=== PATIENT | female | born 1960 | race Caucasian/White ===

== ENCOUNTER 2020-09-09 11:57 | Outpatient (REF) | payer MEDICARE, MEDICAID, SELFPAY ==
--- NOTE | 2020-09-09 12:03 | XR_ITS ---
EXAMINATION: XR KNEE, LEFT CLINICAL INFORMATION: Pain left knee COMPARISON: None TECHNIQUE: Four views of the left knee. FINDINGS: There is no acute fracture, dislocation subluxation. The tricompartment joint space is maintained. There is mild spurring along the inferior patella and a small anterior superior patellar enthesophyte. No abnormal joint effusion seen XR/XR knee LT 4V IMPRESSION: Mild degenerative spurring along the patella. No visible acute fracture or dislocation seen.
== END 2020-09-09 11:58 | disposition home or self-care (01) ==
LOC: HO.HMGCX 11:57
PROVIDERS: PCP Internal Medicine; Visit Provider Internal Medicine
DX: M25.562 Pain in left knee (principal)
CPT/HCPCS: 73564

== ENCOUNTER → 2020-11-07 14:10 | Outpatient (BNVA) | payer MEDICARE, MEDICAID, SELFPAY | PROVIDERS: Visit Provider Urology ==

== ENCOUNTER → 2020-11-12 12:17 | Outpatient (BNVA) | payer MEDICARE, MEDICAID, SELFPAY | PROVIDERS: PCP Internal Medicine; Visit Provider Internal Medicine Cardiovascular Disease | DX: R94.31 Abnormal electrocardiogram [ECG] [EKG] (principal); R07.89 Other chest pain; I10 Essential (primary) hypertension; R06.00 Dyspnea, unspecified | CPT/HCPCS: 93005; 99202 ==

== ENCOUNTER 2020-11-17 | Outpatient (REF) | payer MEDICARE, MEDICAID, SELFPAY | END 2020-11-17 00:01 | disposition home or self-care (01) | LOC: HO.LAB | PROVIDERS: Visit Provider Internal Medicine Cardiovascular Disease | DX: R07.89 Other chest pain (principal); Z20.822 Contact with and (suspected) exposure to COVID-19 | CPT/HCPCS: 36415; U0003; U0005 ==

== ENCOUNTER → 2021-01-12 08:51 | Outpatient (REF) | payer MEDICARE, MEDICAID, SELFPAY ==
--- NOTE | 2021-01-12 08:53 | CA_ITS ---
Acquisition Time: 2021-01-12 09:00:10 Total Exercise Time: 00:06:51 Test Indications: Abnormal ECG Medications: Protocol: EZRA Max HR: 150 BPM 93% of Pred: 160 BPM Max BP: 142/080 mmHG Max Work Load: 8.3 METS Exercise stress test using Ezra protocol total of 6 min 51 sec. METS 8.3, TAPHR up to 93 %. Pt denies any anginal sx. EKG without any arrhythmias, no ischemic changes seen during exercise or in recovery. Normotensive response to exercise. Test reviewed with Dr. Jerry. Referred By: Calvin Ruth Overread By: Carlene Sahni NP
== END ==
LOC: HO.CARD 08:51
PROVIDERS: Visit Provider Internal Medicine Cardiovascular Disease
DX: R07.89 Other chest pain (principal)
CPT/HCPCS: 93016; 93017; 93018

== ENCOUNTER 2021-01-15 12:51 | Outpatient (REF) | payer MEDICARE, MEDICAID, SELFPAY ==
--- NOTE | ~2021-01-15 | CT_ITS ---
EXAMINATION: CT CHEST WITHOUT CONTRAST CLINICAL INFORMATION: Chest pain. COMPARISON: Multiple prior examinations, most recent CT of the chest October 2018 TECHNIQUE: Multidetector volumetric CT imaging of the chest was done. Axial MIP volume rendering provided. Sagittal and coronal reformatted images were obtained. This CT examination was performed using dose optimization techniques as appropriate, variously including the following: *Automated exposure control *Adjustment of mA and/or kV according to patient size (this includes techniques or standardized protocols for targeted exams where dose is matched to indication/reason for exam; i.e. extremities or head) *Use of iterative reconstruction technique DLP: 169 mGy-cm FINDINGS: LUNGS: Nodules: There are stable bilateral small sub-5 mm nodular densities throughout both lungs, unchanged dating back to 2014 compatible with benign nodules. There are patchy areas of ground-glass opacity in both lungs not seen previously. For example, see image 364/[id number] series 5 in both the right lower lobe and left lower lobe. Small bulla present within the right lower lobe, unchanged. CARDIOVASCULAR: There is mild arterial calcification of the aorta, unchanged. Pulmonary vessels normal. Heart size within normal limits. No pericardial effusion. Lymph nodes normal. Thoracic inlet normal. Esophagus normal. PLEURA: There is no pleural effusion. AXILLA: No lymphadenopathy. UPPER ABDOMEN: Status post cholecystectomy. OSSEOUS STRUCTURES: Mild multilevel spondylosis of the dorsal spine. CT/CT chest wo con IMPRESSION: Stable bilateral small nodules, unchanged dating back to 2014 compatible with benign nodules. No further followup is required. New bilateral patchy ground-glass opacities in both lungs of uncertain etiology. The differential diagnosis is broad and includes inflammatory and infectious processes. Neoplasm is unlikely.
== END 2021-01-15 12:52 | disposition home or self-care (01) ==
LOC: HO.CT 12:51
PROVIDERS: Visit Provider Internal Medicine
DX: R91.8 Other nonspecific abnormal finding of lung field (principal)
CPT/HCPCS: 71250

== ENCOUNTER 2021-01-27 14:58 | Outpatient (REF) | payer MEDICARE, MEDICAID, SELFPAY ==
--- NOTE | ~2021-01-27 | XR_ITS ---
EXAMINATION: XR CHEST CLINICAL INFORMATION: Patchy areas of groundglass opacity in both lungs COMPARISON: CT chest 01/15/2021 TECHNIQUE: 2 views of the chest were obtained. FINDINGS: The lungs are well-expanded and clear of acute process. Heart size and pulmonary vascularity is normal. There is moderate spondylosis dorsal spine. No lytic process. XR/XR chest 2V IMPRESSION: No acute cardiopulmonary process seen on the chest x-ray. Groundglass density seen in the lungs on previous CT chest 01/15/2021 is not visualized on the chest x-ray.
== END 2021-01-27 14:59 | disposition home or self-care (01) ==
LOC: HO.XRAY 14:58
PROVIDERS: PCP Internal Medicine; Visit Provider Internal Medicine
DX: R07.89 Other chest pain (principal); R91.8 Other nonspecific abnormal finding of lung field
CPT/HCPCS: 71046; 99212

== ENCOUNTER → 2021-02-04 14:10 | Outpatient (BNVA) | payer MEDICARE, MEDICAID, SELFPAY | PROVIDERS: PCP Internal Medicine; Visit Provider Internal Medicine Cardiovascular Disease | DX: R07.89 Other chest pain (principal); R06.00 Dyspnea, unspecified | CPT/HCPCS: 99212 ==

== ENCOUNTER 2021-03-03 12:50 | Outpatient (REF) | payer MEDICARE, MEDICAID, SELFPAY | END 2021-03-03 12:51 | disposition home or self-care (01) | LOC: HO.LAB 12:50 | PROVIDERS: PCP Internal Medicine; Visit Provider Obstetrics & Gynecology | DX: Z13.89 Encounter for screening for other disorder (principal) | CPT/HCPCS: 87491; 87591 ==

== ENCOUNTER 2021-03-06 11:40 | Outpatient (REF) | payer MEDICARE, MEDICAID, SELFPAY ==
[2021-03-07 02:25] LABS: CT PCR NOT DETECTED (Not Detect.); NG PCR NOT DETECTED (Not Detect.)
== END 2021-03-06 11:41 | disposition home or self-care (01) ==
LOC: HO.LAB 11:40
PROVIDERS: Visit Provider Obstetrics & Gynecology
DX: Z11.3 Encounter for screening for infections with a predominantly sexual mode of transmission (principal); R10.2 Pelvic and perineal pain
CPT/HCPCS: 87491; 87591

== ENCOUNTER 2021-03-11 14:24 | Outpatient (REF) | payer MEDICARE, MEDICAID, SELFPAY ==
--- NOTE | ~2021-03-11 | US_ITS ---
EXAMINATION: US PELVIC AND TRANSVAGINAL CLINICAL INFORMATION: Pelvic and perineal pain. section x3. Tubal ligation. COMPARISON: CT abdomen/pelvis dated 04/23/2020 and pelvic ultrasound dated 03/04/2020. TECHNIQUE: Transabdominal and transvaginal imaging was performed. FINDINGS: The uterus is of normal size and echogenicity measuring 6.4 x 2.5 x 3.9 cm. Redemonstration of a probable anterior body fibroid measuring 0.5 cm (previously 0.8 cm). A regular homogeneous endometrium is identified measuring 0.3 cm. Redemonstration of an echogenic focus within the endometrium, unchanged when compared to the prior examination. The right ovary is not seen due to overlying bowel gas. The left ovary is sonographically unremarkable measuring 1.3 x 1 x 0.9 cm for a volume of 0.6 mL. There is no pelvic free fluid. US/US pelvic and transvaginal IMPRESSION: 1. Stable echogenic focus within the endometrium, unchanged. No endometrial thickening. 2. Probable anterior fibroid, slightly decreased in size when compared to the prior examination measuring up to 0.5 cm (previously 0.8 cm). No new myometrial lesion. 3. Sonographically unremarkable left ovary. Right ovary not seen.
== END 2021-03-11 14:25 | disposition home or self-care (01) ==
LOC: HO.US 14:24
PROVIDERS: Visit Provider Obstetrics & Gynecology
DX: R10.2 Pelvic and perineal pain (principal)
CPT/HCPCS: 76830; 76856

== ENCOUNTER → 2021-03-18 11:21 | Outpatient (BNVA) | payer MEDICARE, MEDICAID, SELFPAY | PROVIDERS: PCP Internal Medicine; Visit Provider Obstetrics & Gynecology | DX: R10.2 Pelvic and perineal pain (principal); R93.5 Abnormal findings on diagnostic imaging of other abdominal regions, including retroperitoneum; D21.9 Benign neoplasm of connective and other soft tissue, unspecified | CPT/HCPCS: Q3014 ==

== ENCOUNTER 2021-04-03 14:40 | Outpatient (REF) | payer MEDICARE, MEDICAID, SELFPAY ==
[2021-04-03 16:13] LABS: Hematocrit 39.5 % (37-47); Hemoglobin 12.9 g/dl (12.0-16.0); Mean Corpuscular HGB Conc 32.7 g/dl (31.0-35.0); Mean Corpuscular Hemoglobin 29.3 pg (27.0-33.0); Mean Corpuscular Volume 89.6 fL (80-98); Mean Platelet Volume 10.8 fL (9.4-12.3); Platelet Count 247 X10*3/uL (160-400); Red Blood Count 4.41 X10*6/uL (4.20-5.50); Red Cell Distribution Width 12.1 % (11.0-16.0)
[2021-04-03 16:37] LABS: Alanine Aminotransferase 15 U/L (0-31); Albumin Level 4.6 g/dL (3.5-5.0); Alkaline Phosphatase 81 U/L (39-117); Anion Gap 13 (12-20); Aspartate Amino Transferase 25 U/L (5-31); Bilirubin Total 0.3 mg/dL (0.0-1.0); Blood Urea Nitrogen 22 mg/dL (9-16); Calcium 9.9 mg/dL (8.4-10.2); Carbon Dioxide 28 mmol/L (22-29); Chloride 105 mmol/L (96-108); Estimated Glomerular Filt Rate > 60; Glucose Random 93 mg/dL (60-115); Potassium 4.8 mmol/L (3.3-5.1); Sodium 141 mmol/L (135-145); Total Protein 7.6 g/dL (6.5-8.0)
== END 2021-04-03 14:41 | disposition home or self-care (01) ==
LOC: HO.LAB 14:40
PROVIDERS: PCP Internal Medicine; Referring Provider Internal Medicine; Visit Provider Nurse Practitioner Family
DX: Z01.818 Encounter for other preprocedural examination (principal); K21.9 Gastro-esophageal reflux disease without esophagitis
CPT/HCPCS: 36415; 80053; 85027; 99202

== ENCOUNTER 2021-05-19 09:39 | Day surgery (SDC) | payer MEDICARE, MEDICAID, SELFPAY ==
[2021-05-14 09:56] VITALS: BMI 32.1
[2021-05-14 11:37] VITALS: BMI 32.6
--- NOTE | 2021-05-18 10:22 | P.CONAN_ITS ---
Documented by User: Roxane Waltonney 05/18/21 10:24 HPI - Anesthesia Eval Consult details Narrative: 60yo F for Upper Endoscopy and Colonoscopy Negative cardiac w/u 01/2021 (referred for abnormal EKG, but was limb reversal and SOB r/t deconditioning per cardio) [facility] Active Problems Active Problems: All Active Problems (Updated 05/14/21 @ 09:55 by Sonya Caballero) Chest discomfort (Acute) Dyspnea (Acute) Lung nodules (Acute) Pharyngitis (Acute) Generalized body aches (Acute) Nausea (Acute) Sinusitis (Acute) Abdominal pain (Acute) Well woman exam (Acute) Female pelvic pain (Acute) Abnormal endometrial ultrasound (Acute) Myoma (Acute) Radiculitis of right cervical region (Acute) Sciatica, right side (Acute) GERD (gastroesophageal reflux disease) (Acute) Pulmonary nodules (Acute) Abnormal EKG (Acute) Knee pain, left (Acute) Osteoarthritis (Acute) Anxiety, generalized (Acute) Chronic GERD (Acute) HIV positive (Acute) Past Medical History Medical History Abnormal EKG Abnormal Pap smear of cervix Anxiety, generalized Chronic GERD Dysplasia of cervix, low grade (TOMA 1) GERD (gastroesophageal reflux disease) HIV positive Knee pain, left Osteoarthritis Pulmonary nodules Shoulder pain, right Family History Family History Father CVD (cardiovascular disease) Mother Arthritis Surgical History Surgical History History of bilateral tubal ligation History of section History of colonoscopy History of esophagogastroduodenoscopy (EGD) Social History Social History Housing: House Alcohol intake: never Patient Tobacco Use Status: Former Tobacco user Quit Date: 1984 Tobacco use type: Cigarette Are you DNR?: No Advance Directives: No Advance Directives Information Provided: No Advance Directives on File: No Current occupational status: employed and disabled Meds Allergies Allergy/AdvReac Type Severity Reaction Status Date / Time aspirin [ASPIRIN] Allergy Intermediate HIVES, Verified 05/19/21 09:52 stomach upset codeine [CODEINE] Allergy Intermediate NAUSEA & Verified 05/19/21 09:52 VOMITING, drowsy, upset stomach ondansetron [Zofran] Allergy Intermediate headache Verified 05/19/21 09:52 Iodinated Contrast Media Allergy Unknown Verified 05/19/21 09:52 [IV Contrast Dye] Home Medications Medication Instructions Recorded Confirmed Last Taken Type bictegravir 50 mg-emtricitabine 1 tab PO DAILY 09/09/20 05/14/21 05/19/21 07:55 History 200 mg-tenofovir alafenam 25 mg tablet (Biktarvy) pantoprazole 40 mg tablet,delayed 40 mg PO DAILY 09/09/20 05/14/21 05/19/21 07:55 History release diphenhydramine HCl 25 mg capsule 50 mg PO BEDTIME cap 09/30/20 05/14/21 Unknown History (Banophen) olopatadine 0.7 % eye drops (Pazeo) 1 drp OPHTHALMIC (EYE) DAILY PRN 09/30/20 05/14/21 Unknown History bisacodyl 5 mg tablet,delayed 2 tab PO DAILY 05/14/21 05/14/21 Unknown History release Exam Exam Date and Time: May 18, 2021 1022 Height,Weight and Vital Signs: Height 5 ft 1 in Weight 78.471 kg Pertinent Lab Results Pertinent Lab Results: Laboratory Tests 04/03/21 04/03/21 15:31 15:31 WBC 4.0 L Hgb 12.9 Hct 39.5 Plt Count 247 Sodium 141 Potassium 4.8 Chloride 105 Carbon Dioxide 28 BUN 22 H Creatinine 0.80 Narrative Narrative: EKG 11/2020 NSR, 68/min, Normal ECG Stress 01/2021 Protocol: VARINDER ? Max HR: 150 BPM? 93% of? Pred: 160 BPM Max BP: 142/080 mmHG Max Work Load: 8.3 METS ? Exercise stress test using Varinder protocol total of 6 min 51 sec.? METS 8.3, ?TAPHR up to 93 %.? Pt denies any anginal sx.? EKG without any arrhythmias, no ?ischemic changes seen during exercise or in recovery. Normotensive response to ?exercise.? Test reviewed with Dr. Jerry.? Assessment and Plan Assessment Anesthesia Assessment: Chart Reviewed Documented by User: Deysi Woodruff MD 05/19/21 10:37 [facility] Past Medical History Medical History Abnormal EKG Abnormal Pap smear of cervix Anxiety, generalized Chronic GERD Dysplasia of cervix, low grade (TOMA 1) GERD (gastroesophageal reflux disease) HIV positive Knee pain, left Osteoarthritis Pulmonary nodules Shoulder pain, right Family History Family History Father CVD (cardiovascular disease) Mother Arthritis Family history of problems with anesthesia: No Surgical History Surgical History History of bilateral tubal ligation History of section History of colonoscopy History of esophagogastroduodenoscopy (EGD) History of Problems with Anesthesia: No Social History Social History Housing: House Alcohol intake: never Patient Tobacco Use Status: Former Tobacco user Quit Date: 1984 Tobacco use type: Cigarette Are you DNR?: No Advance Directives: No Advance Directives Information Provided: No Advance Directives on File: No Current occupational status: employed and disabled Meds Allergies Allergy/AdvReac Type Severity Reaction Status Date / Time aspirin [ASPIRIN] Allergy Intermediate HIVES, Verified 05/19/21 09:52 stomach upset codeine [CODEINE] Allergy Intermediate NAUSEA & Verified 05/19/21 09:52 VOMITING, drowsy, upset stomach ondansetron [Zofran] Allergy Intermediate headache Verified 05/19/21 09:52 Iodinated Contrast Media Allergy Unknown Verified 05/19/21 09:52 [IV Contrast Dye] Home Medications Medication Instructions Recorded Confirmed Last Taken Type bictegravir 50 mg-emtricitabine 1 tab PO DAILY 09/09/20 05/14/21 05/19/21 07:55 History 200 mg-tenofovir alafenam 25 mg tablet (Biktarvy) pantoprazole 40 mg tablet,delayed 40 mg PO DAILY 09/09/20 05/14/21 05/19/21 07:55 History release diphenhydramine HCl 25 mg capsule 50 mg PO BEDTIME cap 09/30/20 05/14/21 Unknown History (Banophen) olopatadine 0.7 % eye drops (Pazeo) 1 drp OPHTHALMIC (EYE) DAILY PRN 09/30/20 05/14/21 Unknown History bisacodyl 5 mg tablet,delayed 2 tab PO DAILY 05/14/21 05/14/21 Unknown History release Exam Height,Weight and Vital Signs: Height 5 ft 1 in Weight 78.471 kg Vital Signs Temp Pulse Resp BP Pulse Ox 05/19/21 09:56 97.0 F 74 16 135/83 98 Airway Mallampati Class: II TM Dist: >3cm Neck ROM: Full Heart: RRR Lungs: CTAB Assessment and Plan Assessment Anesthesia Assessment: Anesthesia Plan Discussed Final Anesthetic Review Family History of Problems with Anesthesia: No History of Problems with Anesthesia: No NPO: Yes ASA Class: III Final Preanesthetic Review: No Changes in Pt Med Stat, Meds/Allgs Chart Reviewed, Consent Obtained/Reviewed and Anes Risks/Benef Reviewed Patient Risk: Intermediate Procedure Risk: Low Assessment/Block/Sedation in SS: Assess/Block/Sedation-SS Anesthetic Plan Anesthetic Plan: MAC: Disposition: Standard PACU
[2021-05-19 09:56] VITALS: BP 135/83; PULSE 74; RESP 16; TEMP 36.1; O2SAT 98
[2021-05-19] MEDS: Lactated Ringers 1,000 ML 100 ML IVCONT (10:09)
--- NOTE | 2021-05-19 10:17 | MHC.SHP ---
Pre-Procedural Eval Section A Date of Service: 05/19/21 The patient is an INPATIENT: No The History & Physical has been completed within 30 days and I have reviewed it.: No Section B Chief Complaint: reflux disease Details of Present Illness: Colon cancer screening, GERD Relevant Social History: Tobacco Use (former smoker) Present Medications: see Short Stay Collaborative assessment Medical History: Significant History (Abnormal EKG Abnormal Pap smear of cervix Anxiety, generalized Chronic GERD Dysplasia of cervix, low grade (TOMA 1) GERD (gastroesophageal reflux disease) HIV positive Knee pain, left Osteoarthritis Pulmonary nodules) History of Previous Operations: Relevant previous surgery/procedure and date(s) (History of bilateral tubal ligation History of section History of colonoscopy History of esophagogastroduodenoscopy (EGD)) Allergies: Allergies Allergy/AdvReac Type Severity Reaction Status Date / Time aspirin [ASPIRIN] Allergy Intermediate HIVES, Verified 05/19/21 09:52 stomach upset codeine [CODEINE] Allergy Intermediate NAUSEA & Verified 05/19/21 09:52 VOMITING, drowsy, upset stomach ondansetron [Zofran] Allergy Intermediate headache Verified 05/19/21 09:52 Iodinated Contrast Media Allergy Unknown Verified 05/19/21 09:52 [IV Contrast Dye] Review of Systems Sugical H&P ROS: Negative: Constitution, Cardiovascular, Respiratory and Gastrointestinal Exam Surgical H&P Exam: Normal: Heart, Normal: Lungs, Normal: Extremities and Normal: Abdomen Plan Diagnosis/Plan: Unchanged I have reviewed the history and physical and performed a pertinent physical examination on my patient. No changes have occurred unless specified.
--- NOTE | 2021-05-19 10:28 | P.BOP_ITS ---
Brief Operative Note Date of Service: 05/19/21 Pre-op diagnosis: Colon cancer screening, GERD Post-op diagnosis: other (Colon polyps, diverticulosis, hemorrhoids, GERD, Hiatal hernia, gastritis) Procedure: FLEXIBLE TRANSORAL UPPER GASTROINTESTINAL ENDOSCOPY WITH BIOPSIES AND COLONOSCOPY TILL CECUM WITH BIOPSIES AND SNARE POLYPECTOMY UPPER ENDOSCOPY Consent: Indications for the procedure and potential complications of bleeding, perforation, reaction to medications and missed diagnosis were discussed with the patient and informed consent was obtained. Instrument: Olympus GIF H 190 mid size upper endoscope Monitoring: Vital signs and clinical assessment, continuous EKG monitoring, Pulse oximetry, Carbon Dioxide monitoring and blood pressure monitoring were done throughout the procedure. Procedure: The patient was placed in the left lateral decubitis position and pre-procedure medications were administered and a bite block was placed. The endoscope was inserted into the mouth and advanced under direct vision to the third part of duodenum. A careful inspection was made as the upper endoscope was withdrawn including a retroflexed examination of the proximal stomach; Findings and interventions are described below. Findings: Larynx: Normal Esophagus: GE junction at 36 cms, small hiatal hernia 36 to 38 cms. Irregular Z line with ? 1 cms tongue of possible Campoverde's - biopsied. Stomach: Mild gastric erythema. Biopsies were obtained. Grade 2 flap valve on retroflexed examination of the cardia. Duodenum: Normal bulb and descending duodenum Intervention: Biopsies as noted above COLONOSCOPY PROCEDURE NOTE Consent: Indications for the procedure and potential complications of bleeding, perforation, reaction to medications and missed diagnosis were discussed with the patient and informed consent was obtained. Instrument: Olympus PCF H 190 L variable stiffness pediatric colonoscope Monitoring: Vital signs and clinical assessment, intermittent blood pressure monitoring, continuous EKG monitoring, Pulse oximetry and Carbon Dioxide monitoring were done throughout the procedure. Colon withdrawl time was 21 minutes. Procedure: The patient was placed in the left lateral decubitis position and pre-procedure medications were administered. After a digital rectal examination of the ano-rectum, the video colonoscope was inserted into the rectum and advanced through the colon to the cecum. The colonoscope was slowly withdrawn in a retrograde panoramic fashion and the colon mucosa was carefully examined including a retroflexed view of the rectum. Findings and interventions are described below. Procedure Difficulty: : Without difficulty Findings: Terminal Ileum: Not evaluated Cecum: Normal Ascending Colon: Normal Transverse Colon: A 3-4 mm sessile polyp in proximal TC removed with a cold bx. Descending Colon: Normal Sigmoid Colon: A 7-8 mm sessile polyp removed with a cold snare. Moderate diverticulosis Rectum: Normal Ano-rectum: Moderate to large internal hemorrhoids Colon preparation: Good Impression and Post Procedure Diagnosis: Endoscopy Findings: ESOPHAGUS: small hiatal hernia 36 to 38 cms. Irregular Z line with ? 1 cms tongue of possible Campoverde's - biopsied. STOMACH: Gastritis Colonoscopy Findings: Two small polyps removed Moderate diverticulosis seen in the sigmoid colon Moderate to large hemorrhoids on retroflexed exam. Plan: Await pathology results Patient has an appointment on 06/09/21 in the GI Clinic with Carlene Sahni FNP-BC. Repeat Colonoscopy interval based on path results - in 5 years if polyps are adenomatous and 10 years if polyps are hyperplastic. Above findings were reviewed with the patient and colon polyps, diverticulosis, hemorrhoids and GERD handouts were given in the discharge area Surgeon: Emery Monsalve MD Anesthesia: MAC (Regi Sahu CRNA) Was an Design Engineering Specialist used for this Procedure?: Yes Design Engineering Specialist: Rosalia Dubois Estimated blood loss (mL): 0 Pathology: other ( A. GASTRIC ANTRUM B. ESOPHAGUS R/O CAMPOVERDE'S C. TRANSVERSE COLON POLYP D. SIGMOID COLON POLYP) Condition: stable Disposition: PACU
[2021-05-19 11:20] VITALS: BP 124/85; PULSE 98; RESP 14; TEMP 36.1; O2SAT 99
[2021-05-19 11:35] VITALS: BP 130/80; PULSE 85; RESP 18; O2SAT 99
--- NOTE | 2021-05-19 18:31 | P.OP_ITS ---
Operative Note Operative Note Date of Service: 05/19/21 Narrative: Pre-op diagnosis:?Colon cancer screening, GERD Post-op diagnosis:?other (Colon polyps, diverticulosis, hemorrhoids, GERD, Hiatal hernia, gastritis) Procedure:? FLEXIBLE TRANSORAL UPPER GASTROINTESTINAL ENDOSCOPY WITH BIOPSIES AND COLONOSCOPY TILL CECUM WITH BIOPSIES AND SNARE POLYPECTOMY UPPER ENDOSCOPY Consent:?Indications for the procedure and potential complications of bleeding, perforation, reaction to medications and missed diagnosis were discussed with the patient and informed consent was obtained. Instrument:?Olympus GIF H 190 mid size upper endoscope Monitoring: Vital signs and clinical assessment, continuous EKG monitoring, Pulse oximetry, Carbon Dioxide monitoring and blood pressure monitoring were done throughout the procedure. Procedure:?The patient was placed in the left lateral decubitis position and pre-procedure medications were administered and a bite block was placed. The endoscope was inserted into the mouth and advanced under direct vision to the third part of duodenum. A careful inspection was made as the upper endoscope was withdrawn including a retroflexed examination of the proximal stomach; Findings and interventions are described below. Findings: Larynx:??Normal Esophagus:?GE junction at 36 cms, small hiatal hernia 36 to 38 cms. Irregular Z line with ? 1 cms tongue of possible Campoverde's - biopsied. Stomach:?Mild gastric erythema. Biopsies were obtained. Grade 2 flap valve on retroflexed examination of the cardia. Duodenum:?Normal bulb and descending duodenum Intervention:?Biopsies as noted above COLONOSCOPY PROCEDURE NOTE Consent:?Indications for the procedure and potential complications of bleeding, perforation, reaction to medications and missed diagnosis were discussed with the patient and informed consent was obtained. Instrument:?Olympus PCF H 190 L variable stiffness pediatric colonoscope Monitoring:?Vital signs and clinical assessment, intermittent blood pressure monitoring, continuous EKG monitoring, Pulse oximetry and Carbon Dioxide monitoring were done throughout the procedure. Colon withdrawl time was 21 minutes. Procedure:?The patient was placed in the left lateral decubitis position and pre-procedure medications were administered. After a digital rectal examination of the ano-rectum, the video colonoscope was inserted into the rectum and advanced through the colon to the cecum. The colonoscope was slowly withdrawn in a retrograde panoramic fashion and the colon mucosa was carefully examined including a retroflexed view of the rectum. Findings and interventions are described below. Procedure Difficulty:?: Without difficulty Findings: Terminal Ileum: Not evaluated Cecum:? Normal Ascending Colon:??Normal Transverse Colon:??A 3-4 mm sessile polyp in proximal TC removed with a cold bx. Descending Colon:? Normal Sigmoid Colon:? A 7-8 mm sessile polyp removed with a cold snare.??Moderate diverticulosis Rectum:??Normal Ano-rectum:??Moderate to large internal hemorrhoids Colon preparation:? Good Impression and Post Procedure Diagnosis: Endoscopy Findings: ESOPHAGUS: small hiatal hernia 36 to 38 cms. Irregular Z line with ? 1 cms tongue of possible Campoverde's - biopsied. STOMACH: Gastritis Colonoscopy Findings: Two small polyps removed Moderate diverticulosis seen in the sigmoid colon Moderate to large hemorrhoids on retroflexed exam. Plan: Await pathology results Patient has an appointment on 06/09/21 in the GI Clinic with ? Carlene Sahni FNP-BC. Repeat Colonoscopy interval based on path results - in 5 years if polyps are adenomatous and 10 years if polyps are hyperplastic. Above findings were reviewed with the patient and colon polyps, diverticulosis, hemorrhoids and GERD handouts were given in the discharge area Surgeon:?Emery Monsalve MD Anesthesia:?MAC (Regi Sahu CRNA) Was an Business Support Associate used for this Procedure?:?Yes Business Support Associate:?Rosalia Dubois Estimated blood loss (mL):?0 Pathology:?other ( A. GASTRIC ANTRUM? B. ESOPHAGUS R/O CAMPOVERDE'S? C. TRANSVERSE COLON POLYP? D. SIGMOID COLON POLYP) Condition:?stable Disposition:?PACU
== END 2021-05-19 12:39 ==
LOC: HO.SSS 09:39
PROVIDERS: PCP Internal Medicine; Visit Provider Internal Medicine Gastroenterology
PROC: (CPT 45385; principal; 2021-05-19 11:00)
DX: Z12.11 Encounter for screening for malignant neoplasm of colon (principal); D12.3 Benign neoplasm of transverse colon; D12.5 Benign neoplasm of sigmoid colon; K57.30 Diverticulosis of large intestine without perforation or abscess without bleeding; K64.8 Other hemorrhoids; K21.9 Gastro-esophageal reflux disease without esophagitis; K29.50 Unspecified chronic gastritis without bleeding; K44.9 Diaphragmatic hernia without obstruction or gangrene; Z21 Asymptomatic human immunodeficiency virus [HIV] infection status; R91.8 Other nonspecific abnormal finding of lung field; Z79.899 Other long term (current) drug therapy; Z88.8 Allergy status to other drugs, medicaments and biological substances; Z91.041 Radiographic dye allergy status; Z87.891 Personal history of nicotine dependence
CPT/HCPCS: 45385; 45380; 43239; 88305; 88342

== ENCOUNTER 2021-06-05 14:14 | Outpatient (REF) | payer MEDICARE, MEDICAID, SELFPAY | END 2021-06-05 14:15 | disposition home or self-care (01) | LOC: HO.LNP 14:14 | PROVIDERS: Nurse Practitioner Family; Visit Provider Hospitalist | DX: Z20.822 Contact with and (suspected) exposure to COVID-19 (principal); J01.90 Acute sinusitis, unspecified; R52 Pain, unspecified | CPT/HCPCS: U0003; U0005 ==

== ENCOUNTER 2021-06-09 09:22 | Outpatient (REF) | payer MEDICARE, MEDICAID, SELFPAY ==
--- NOTE | ~2021-06-09 | MM_ITS ---
EXAMINATION: MM SCREENING DIGITAL BREAST TOMOSYNTHESIS, BILATERAL CLINICAL INFORMATION: Screening. Asymptomatic. The lifetime risk of breast cancer based on the Tyrer-Cuzick Model is 4%. COMPARISON: Mammography: 06/03/2020, 05/29/2019, 04/24/2018 TECHNIQUE: Digital breast tomosynthesis is performed in both the craniocaudal and mediolateral oblique views along with computer-aided detection (CAD). Synthesized 2D images are generated from the tomosynthesis. FINDINGS: There are scattered areas of fibroglandular density (ACR BI-RADS breast composition Category b). There are no significant masses, abnormal calcifications, or other abnormalities. Breast tissue composition borders on predominantly fatty. Background stromal markings are stable. There is stable nodule versus intramammary node posterior upper outer right breast. No developing density. No significant changes. MM/MM tomosynthesis screening BI IMPRESSION: No mammographic evidence of malignancy. ASSESSMENT: BI-RADS 2: Benign RECOMMENDATION: Routine annual mammography screening. This patient's information was entered into a reminder system with a target due date for their next mammogram.
== END 2021-06-09 09:23 | disposition home or self-care (01) ==
LOC: HO.MAMMO 09:22
PROVIDERS: Visit Provider Internal Medicine
DX: Z12.31 Encounter for screening mammogram for malignant neoplasm of breast (principal)
CPT/HCPCS: 77063; 77067

== ENCOUNTER → 2021-07-03 09:05 | Outpatient (BNVA) | payer MEDICARE, MEDICAID, SELFPAY | PROVIDERS: Visit Provider Nurse Practitioner Family | DX: D36.9 Benign neoplasm, unspecified site (principal); K21.9 Gastro-esophageal reflux disease without esophagitis; Z98.890 Other specified postprocedural states | CPT/HCPCS: Q3014 ==

== ENCOUNTER → 2021-09-02 09:19 | Outpatient (BNVA) | payer MEDICARE, MEDICAID, SELFPAY | PROVIDERS: PCP Internal Medicine; Visit Provider Nurse Practitioner Family | DX: K21.9 Gastro-esophageal reflux disease without esophagitis (principal) | CPT/HCPCS: Q3014 ==

== ENCOUNTER 2021-10-15 16:42 | Outpatient (REF) | payer MEDICARE, MEDICAID, SELFPAY ==
[2021-10-15 17:25] LABS: Influenza A PCR NEGATIVE (Negative); Influenza B PCR NEGATIVE (Negative); Resp Syncy Virus RNA Qual PCR NEGATIVE (Negative); SARS COV2 PCR INHOUSE POSITIVE (Negative)
== END 2021-10-15 16:43 | disposition home or self-care (01) ==
LOC: HO.LNP 16:42
PROVIDERS: Visit Provider Physician Assistant
DX: R05.9 Cough, unspecified (principal); Z20.822 Contact with and (suspected) exposure to COVID-19
CPT/HCPCS: 0241U

== ENCOUNTER 2021-11-13 10:54 | Outpatient (REF) | payer MEDICARE, MEDICAID, SELFPAY ==
[2021-11-13 14:02] LABS: Alanine Aminotransferase 21 U/L (0-31); Albumin Level 4.4 g/dL (3.5-5.0); Alkaline Phosphatase 64 U/L (39-117); Anion Gap 13 (12-20); Aspartate Amino Transferase 25 U/L (5-31); Bilirubin Total 0.6 mg/dL (0.0-1.0); Blood Urea Nitrogen 28 mg/dL (9-16); Calcium 9.7 mg/dL (8.4-10.2); Carbon Dioxide 29 mmol/L (22-29); Chloride 103 mmol/L (96-108); Estimated Glomerular Filt Rate > 60; Glucose Random 99 mg/dL (60-115); Potassium 4.9 mmol/L (3.3-5.1); Sodium 140 mmol/L (135-145); Total Protein 7.4 g/dL (6.5-8.0)
== END 2021-11-13 10:55 | disposition home or self-care (01) ==
LOC: HO.HMGCLDS 10:54
PROVIDERS: Visit Provider Internal Medicine
DX: I10 Essential (primary) hypertension (principal); R06.00 Dyspnea, unspecified
CPT/HCPCS: 36415; 80053

== ENCOUNTER → 2022-02-04 12:37 | Outpatient (BNVA) | payer MEDICARE, MEDICAID, SELFPAY | PROVIDERS: PCP Internal Medicine; Referring Provider Internal Medicine; Visit Provider Internal Medicine Cardiovascular Disease | DX: I10 Essential (primary) hypertension (principal); R07.9 Chest pain, unspecified; R06.02 Shortness of breath | CPT/HCPCS: 93005; 99212 ==

== ENCOUNTER → 2022-03-09 13:32 | Outpatient (BNVA) | payer MEDICARE, MEDICAID, SELFPAY | PROVIDERS: PCP Internal Medicine; Visit Provider Obstetrics & Gynecology | DX: Z13.89 Encounter for screening for other disorder (principal) ==

== ENCOUNTER → 2022-04-07 10:27 | Outpatient (BNVA) | payer MEDICARE, MEDICAID, SELFPAY | PROVIDERS: PCP Internal Medicine; Visit Provider Internal Medicine | DX: R91.8 Other nonspecific abnormal finding of lung field (principal); R07.89 Other chest pain; Z87.891 Personal history of nicotine dependence | CPT/HCPCS: 99212 ==

== ENCOUNTER 2022-04-13 13:20 | Outpatient (REF) | payer MEDICARE, MEDICAID, SELFPAY ==
--- NOTE | ~2022-04-13 | US_ITS ---
EXAMINATION: US PELVIS CLINICAL INFORMATION: Uterine leiomyoma COMPARISON: Previous pelvic ultrasound most recent March 2021 TECHNIQUE: Ultrasound of the pelvis is performed using both transabdominal and transvaginal transducers along with Doppler. Transvaginal imaging is performed due to inadequate visualization transabdominally. FINDINGS: The uterus is anteverted and measures 5.4 x 2.1 x 4 cm in dimension. No focal uterine lesion is seen. Endometrial thickness is normal measuring 0 6 cm. The ovaries are not seen. There is a small amount of fluid in the right pelvis. US/US pelvic and transvaginal IMPRESSION: Limited exam. Previously identified small uterine fibroid not appreciated. Ovaries not seen. Small amount of fluid in the pelvis.
== END 2022-04-13 13:21 | disposition home or self-care (01) ==
LOC: HO.US 13:20
PROVIDERS: Visit Provider Obstetrics & Gynecology
DX: D25.9 Leiomyoma of uterus, unspecified (principal); R93.5 Abnormal findings on diagnostic imaging of other abdominal regions, including retroperitoneum
CPT/HCPCS: 76830; 76856

== ENCOUNTER 2022-04-20 10:50 | Outpatient (REF) | payer MEDICARE, MEDICAID, SELFPAY ==
--- NOTE | ~2022-04-20 | CT_ITS ---
EXAMINATION: CT CHEST WITHOUT CONTRAST CLINICAL INFORMATION: Follow-up pulmonary nodules COMPARISON: Previous chest CT scans most recent January 2021 TECHNIQUE: Multidetector volumetric CT imaging of the chest was done. Axial MIP volume rendering provided. Sagittal and coronal reformatted images were obtained. This CT examination was performed using dose optimization techniques as appropriate, variously including the following: *Automated exposure control *Adjustment of mA and/or kV according to patient size (this includes techniques or standardized protocols for targeted exams where dose is matched to indication/reason for exam; i.e. extremities or head) *Use of iterative reconstruction technique DLP: 154 mGy-cm FINDINGS: LUNGS: The small pulmonary nodules are stable. Largest pulmonary nodule is a 5 mm peripheral or subpleural left lower lobe nodule axial image 392 series 7. There is minimal residual peripheral or subpleural increased groundglass attenuation in the right upper lobe axial image 141 series 7. Otherwise, the previously previously identified peripheral or subpleural groundglass opacities have completely resolved. No new pulmonary nodule is seen. There is a small cyst in the right lower lobe. MEDIASTINUM: The mediastinum is normal. PLEURA: There is no pleural effusion. No pleural mass or thickening. AXILLA: No lymphadenopathy. UPPER ABDOMEN: The gallbladder has been removed. OSSEOUS STRUCTURES: There are degenerative changes of the spine. CT/CT chest wo con IMPRESSION: Stable small pulmonary nodules. Complete resolution of the previously identified peripheral or subpleural groundglass attenuation densities with the exception of a small area in the lateral right upper lobe compared to January 2021 CT. Fleischner guidelines were followed.
== END 2022-04-20 10:51 | disposition home or self-care (01) ==
LOC: HO.CT 10:50
PROVIDERS: Visit Provider Internal Medicine
DX: R91.8 Other nonspecific abnormal finding of lung field (principal)
CPT/HCPCS: 71250

== ENCOUNTER → 2022-04-27 09:17 | Outpatient (BNVA) | payer MEDICARE, MEDICAID, SELFPAY | PROVIDERS: PCP Internal Medicine; Visit Provider Obstetrics & Gynecology | DX: D25.9 Leiomyoma of uterus, unspecified (principal) | CPT/HCPCS: 99212 ==

== ENCOUNTER 2022-06-15 09:26 | Outpatient (REF) | payer MEDICARE, MEDICAID, SELFPAY ==
--- NOTE | ~2022-06-15 | MM_ITS ---
EXAMINATION: MM SCREENING DIGITAL BREAST TOMOSYNTHESIS, BILATERAL CLINICAL INFORMATION: Screening. Asymptomatic. The lifetime risk of breast cancer based on the Tyrer-Cuzick Model is 4%. COMPARISON: Mammography: 06/09/2021, 06/03/2020, 05/29/2019 TECHNIQUE: Digital breast tomosynthesis is performed in both the craniocaudal and mediolateral oblique views along with computer-aided detection (CAD). Synthesized 2D images are generated from the tomosynthesis. FINDINGS: There are scattered areas of fibroglandular density (ACR BI-RADS breast composition Category b). Breast tissue composition borders on predominantly fatty. Background stromal markings are similar to prior studies. No architectural abnormality. There are no significant masses, abnormal calcifications, or other abnormalities. Incidental intramammary node again seen posterior upper outer right breast. The axilla are unremarkable. MM/MM tomosynthesis screening BI IMPRESSION: No mammographic evidence of malignancy. ASSESSMENT: BI-RADS 2: Benign RECOMMENDATION: Routine annual mammography screening. This patient's information was entered into a reminder system with a target due date for their next mammogram.
== END 2022-06-15 09:27 | disposition home or self-care (01) ==
LOC: HO.MAMMO 09:26
PROVIDERS: PCP Internal Medicine; Visit Provider Internal Medicine
DX: Z12.31 Encounter for screening mammogram for malignant neoplasm of breast (principal)
CPT/HCPCS: 77063; 77067

== ENCOUNTER 2022-10-06 13:26 | Outpatient (REF) | payer MEDICARE, MEDICAID, SELFPAY ==
[2022-10-06 16:41] LABS: Alanine Aminotransferase 14 U/L (0-31); Albumin Level 4.6 g/dL (3.5-5.0); Alkaline Phosphatase 67 U/L (39-117); Aspartate Amino Transferase 19 U/L (5-31); Bilirubin Direct 0.2 mg/dL (0.0-0.5); Bilirubin Total 0.5 mg/dL (0.0-1.0); Lipase 51 U/L (8-78); Total Protein 7.3 g/dL (6.5-8.0)
== END 2022-10-06 13:27 | disposition home or self-care (01) ==
LOC: HO.LAB 13:26
PROVIDERS: PCP Internal Medicine; Visit Provider Nurse Practitioner Family
DX: R10.12 Left upper quadrant pain (principal); K21.9 Gastro-esophageal reflux disease without esophagitis; K59.01 Slow transit constipation
CPT/HCPCS: 36415; 80076; 83690; 99212

== ENCOUNTER 2022-10-08 09:13 | Outpatient (REF) | payer MEDICARE, MEDICAID, SELFPAY ==
--- NOTE | ~2022-10-08 | US_ITS ---
EXAMINATION: US ABDOMEN COMPLETE CLINICAL INFORMATION: Abdominal pain. COMPARISON: Previous CT April 2020 TECHNIQUE: Real-time imaging of the abdominal viscera. FINDINGS: PANCREAS: Normal. ABDOMINAL AORTA: The proximal, mid, and distal segments are normal in caliber. INFERIOR VENA CAVA: Visualized portions are normal. LIVER: Normal. The liver is normal in size. The liver contour is normal. Parenchymal echogenicity is normal. No focal hepatic lesion. There is no intrahepatic biliary duct dilatation seen. GALLBLADDER: Normal. The gallbladder is physiologically distended without evidence of stones, sludge, polyps, wall thickening or pericholecystic fluid. COMMON BILE DUCT: Normal in caliber measuring 0.6 cm in diameter. RIGHT KIDNEY: Normal. No hydronephrosis. No renal calculi or focal parenchymal lesions. The kidney measures 8.3 cm in maximum dimension. LEFT KIDNEY: Normal. No hydronephrosis. No renal calculi or focal parenchymal lesions. The kidney measures 9.8 cm in maximum dimension. SPLEEN: Normal. The spleen measures 8.3 cm in maximum dimension. FREE FLUID: None. US/US abdomen complete IMPRESSION: Unremarkable exam.
== END 2022-10-08 09:14 | disposition home or self-care (01) ==
LOC: HO.US 09:13
PROVIDERS: PCP Internal Medicine; Visit Provider Nurse Practitioner Family
DX: R10.9 Unspecified abdominal pain (principal)
CPT/HCPCS: 76700

== ENCOUNTER 2022-11-05 10:35 | Outpatient (REF) | payer MEDICARE, MEDICAID, SELFPAY ==
--- NOTE | ~2022-11-05 | XR_ITS ---
EXAMINATION: XR CHEST XR RIBS, RIGHT CLINICAL INFORMATION: Chest pain COMPARISON: 04/20/2022 TECHNIQUE: PA and lateral views of the chest. 2 views of the right ribs. FINDINGS: The lungs are well expanded. There is no focal consolidation, edema, or effusion. No pneumothorax. The cardiomediastinal silhouette is within normal limits. No acute osseous abnormality. Degenerative changes throughout the spine. Hypertrophic degenerative change at the acromioclavicular joints, greatest on the right. Targeted right rib radiographs show no fracture or cortical disruption. Some of the images are suboptimal due to overexposure. Alignment appears maintained. XR/XR chest 2V IMPRESSION: 1. Clear lungs. No acute pulmonary finding. 2. No displaced rib fracture identified. Rib radiographs are limited.
--- NOTE | ~2022-11-05 | XR_ITS ---
EXAMINATION: XR CHEST XR RIBS, RIGHT CLINICAL INFORMATION: Chest pain COMPARISON: 04/20/2022 TECHNIQUE: PA and lateral views of the chest. 2 views of the right ribs. FINDINGS: The lungs are well expanded. There is no focal consolidation, edema, or effusion. No pneumothorax. The cardiomediastinal silhouette is within normal limits. No acute osseous abnormality. Degenerative changes throughout the spine. Hypertrophic degenerative change at the acromioclavicular joints, greatest on the right. Targeted right rib radiographs show no fracture or cortical disruption. Some of the images are suboptimal due to overexposure. Alignment appears maintained. XR/XR ribs RT 2V IMPRESSION: 1. Clear lungs. No acute pulmonary finding. 2. No displaced rib fracture identified. Rib radiographs are limited.
== END 2022-11-05 10:36 | disposition home or self-care (01) ==
LOC: HO.HMGCX 10:35
PROVIDERS: Visit Provider Internal Medicine
DX: R07.9 Chest pain, unspecified (principal); M54.9 Dorsalgia, unspecified
CPT/HCPCS: 71046; 71100

== ENCOUNTER → 2022-11-17 10:32 | Outpatient (BNVA) | payer MEDICARE, MEDICAID, SELFPAY | PROVIDERS: PCP Internal Medicine; Visit Provider Internal Medicine | DX: K21.9 Gastro-esophageal reflux disease without esophagitis (principal); K59.04 Chronic idiopathic constipation; R10.12 Left upper quadrant pain; R07.89 Other chest pain; R91.8 Other nonspecific abnormal finding of lung field | CPT/HCPCS: 99212 ==

== ENCOUNTER 2022-12-02 19:09 | Outpatient (REF) | payer MEDICARE, MEDICAID, SELFPAY ==
[2022-12-02 19:51] LABS: Influenza A PCR NEGATIVE (Negative); Influenza B PCR NEGATIVE (Negative); Resp Syncy Virus RNA Qual PCR NEGATIVE (Negative); SARS COV2 PCR INHOUSE NEGATIVE (Negative)
== END 2022-12-02 19:10 | disposition home or self-care (01) ==
LOC: HO.LNP 19:09
PROVIDERS: Visit Provider Physician Assistant Medical
DX: Z20.822 Contact with and (suspected) exposure to COVID-19 (principal); R05.9 Cough, unspecified
CPT/HCPCS: 0241U

== ENCOUNTER 2022-12-09 15:02 | Outpatient (REF) | payer MEDICARE, MEDICAID, SELFPAY ==
--- NOTE | ~2022-12-09 | US_ITS ---
EXAMINATION: US RETROPERITONEAL LIMITED (RENAL ONLY) CLINICAL INFORMATION: Dorsalgia, unspecified. COMPARISON: Ultrasound abdomen complete 10/08/2022. CT abdomen and pelvis without and with contrast 04/23/2020. TECHNIQUE: Real-time imaging of the kidneys. FINDINGS: RIGHT KIDNEY: 9.5 x 5.0 x 5.1 cm (SAG x AP x TRV). The kidney is normal in size, contour, and echogenicity. Renal cortical thickness is normal. No calculi or focal parenchymal lesions. No hydronephrosis. LEFT KIDNEY: 10.8 x 4.4 x 4.4 cm (SAG x AP x TRV). The kidney is normal in size, contour, and echogenicity. Renal cortical thickness is normal. No calculi or focal parenchymal lesions. No hydronephrosis. US/US renal BI IMPRESSION: Normal-appearing kidneys.
== END 2022-12-09 15:03 | disposition home or self-care (01) ==
LOC: HO.US 15:02
PROVIDERS: PCP Internal Medicine; Visit Provider Internal Medicine
DX: M54.9 Dorsalgia, unspecified (principal)
CPT/HCPCS: 76775

== ENCOUNTER → 2023-02-01 14:14 | Outpatient (BNVA) | payer MEDICARE, MEDICAID, SELFPAY | PROVIDERS: PCP Internal Medicine; Referring Provider Internal Medicine; Visit Provider Nurse Practitioner Family | DX: R07.9 Chest pain, unspecified (principal); I10 Essential (primary) hypertension | CPT/HCPCS: 93005; 99212 ==

== ENCOUNTER 2023-02-09 11:20 | Outpatient (REF) | payer MEDICARE, MEDICAID, SELFPAY ==
--- NOTE | ~2023-02-09 | XR_ITS ---
EXAMINATION: XR HAND, RIGHT CLINICAL INFORMATION: Right hand pain. COMPARISON: None available. TECHNIQUE: PA, lateral, and oblique views of the right hand. An indicator arrow points to the first metacarpal. FINDINGS: Mild first carpometacarpal degenerative joint changes are seen. There is no acute fracture or dislocation. The carpal bones are normally aligned. The distal radius and ulna are intact with the soft tissues are unremarkable. XR/XR hand RT min 3V IMPRESSION: Mild first carpometacarpal degenerative joint changes suggesting osteoarthritis. No acute fracture.
== END 2023-02-09 11:21 | disposition home or self-care (01) ==
LOC: HO.HMGCX 11:20
PROVIDERS: PCP Internal Medicine; Visit Provider Nurse Practitioner Family
DX: R60.0 Localized edema (principal)
CPT/HCPCS: 73130

== ENCOUNTER → 2023-02-15 11:50 | Outpatient (BNVA) | payer MEDICARE, MEDICAID, SELFPAY | PROVIDERS: PCP Internal Medicine; Visit Provider Nurse Practitioner Family | DX: K59.01 Slow transit constipation (principal); K21.9 Gastro-esophageal reflux disease without esophagitis | CPT/HCPCS: 99212 ==

== ENCOUNTER 2023-05-02 11:05 | Outpatient (AMB) | payer MEDICARE, MEDICAID, SELFPAY ==
--- NOTE | 2023-05-02 11:08 | A.OFFVIS_ITS ---
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 Financial Institution Required: No Information Interpreted: non-clinical & clinical Arc Welder Apprentice: Arc Welder Apprentice Present (Sandra) Allergies aspirin [ASPIRIN] Allergy (Intermediate, Verified 05/02/23 11:12) HIVES, stomach upset codeine [CODEINE] Allergy (Intermediate, Verified 05/02/23 11:12) NAUSEA & VOMITING, drowsy, upset stomach ondansetron [Zofran] Allergy (Intermediate, Verified 05/02/23 11:12) headache Iodinated Contrast Media [IV Contrast Dye] Allergy (Verified 05/02/23 11:12) Unknown Is last menstrual period known: No Post menopausal: Yes HPI HPI Comments History of Present Illness Details Presenting for annual exam. No complaints. Last Pap/HPV was in 02/26 was ascus/ hpv neg, ascus hpv neg in 2017 Last Mammogram was BI-RADS 2 in 07/01 Last Colonoscopy was in , recommended to repeat in 5 years [facility] Medical History (Updated 05/02/23 @ 11:34 by Duane Kincaid MD) Abnormal EKG Abnormal Pap smear of cervix Anxiety, generalized Chronic GERD Dysplasia of cervix, low grade (TOMA 1) GERD (gastroesophageal reflux disease) HIV positive Knee pain, left Osteoarthritis Pulmonary nodules Shoulder pain, right Tubular adenoma Surgical History History of bilateral tubal ligation History of section History of colonoscopy History of esophagogastroduodenoscopy (EGD) Family History Father CVD (cardiovascular disease) Mother Arthritis Social History Housing: House Alcohol intake: never Patient Tobacco Use Status: Former Tobacco user Quit Date: 1984 Tobacco use type: Cigarette e-Cigarette/Vaping Use: Never Used service: No Current occupational status: employed and disabled Cognitive needs: No Hearing needs: No Vision needs: Yes Female Reproductive History Menstrual Age of Menarche: 11 control method: permanent sterilization Total pregnancies: 5 Full term: 3 Number of Living Children: 3 Ab induced: 2 Date of last pap smear: 02/28/20 History of abnormal pap smear: Yes Date of Mammogram: 06/15/22 Review of Systems Const All systems reviewed & are unremarkable except as noted in HPI and below Card Reports as per HPI Resp Reports as per HPI GI Reports as per HPI and Reports no additional complaints Reports as per HPI Physical Exam Vital Signs: Last Vital Signs BP 120/70 05/02/23 11:10 BMI result Body Mass Index 31.6 Const General: cooperative, healthy appearing and comfortable Chest Chest palpation & inspection: normal inspection of the chest and normal palpation of entire chest wall Breast/axilla inspection: normal inspection of the breasts and normal inspection of the axillae Breast/axilla palpation: normal palpation of the breasts, normal palpation of the axillae and no axillary lymphadenopathy Resp Effort & Inspection: normal respiratory effort Auscultation: clear to auscultation bilaterally Percussion: percussion normal Cardio Palpation: normal PMI Rate: regular rate Rhythm: regular rhythm Heart sounds: no murmurs and no rubs Peripheral pulses: Peripheral pulses 2+ throughout GI Inspection: Yes normal to inspection Palpation (GI): Soft to palpation, nontender, no guarding, not rigid and No hepatosplenomegaly present Percussion: Yes normal to percussion Auscultation: normal bowel sounds Rectal Exam - Female: deferred General: Yes bladder normal to palpation External Female Exam: No lesion Speculum Exam - Vagina: normal appearance of the vagina, normal palpation, normal vaginal discharge and not erythematous Speculum Exam - Cervix: normal appearance of the cervix and normal palpation Bimanual exam- vagina & uterus: normal bimanual exam, normal palpation, uterine size normal, bladder normal to palpation, consistency normal and normal palpation Bimanual Exam- Adnexa, other: normal adnexae, no masses and no tenderness Assessment & Plan Assessment & Plan (1) Well woman exam: Code(s): Z01.419 - Encounter for gynecological examination (general) (routine) without abnormal findings Plan: cotest done, Mammo ordered. self breast exam recommended, colonoscopy up to date, daily Ca 1200 mg + Vit D 600 IU recommended, instructions given to the pt to schedule next year annual; exam appointment. All questions answered , the patient verbalized understanding, Orders: Orders MM screening mammo BI Today Z12.31 - Encounter for screening mammogram for malignant neoplasm of breast Pap Smear Today Z01.419 - Encounter for gynecological examination (general) (routine) without abnormal findings Coding Level of Care Code Est Pt Prev Care 40-64y(07446) Diagnoses Well woman exam Z01.419
[2023-05-02 11:10] VITALS: BP 120/70; BMI 31.6
== END 2023-05-02 11:36 | disposition home or self-care (01) ==
LOC: HO.HWS 11:06
PROVIDERS: PCP Internal Medicine; Visit Provider Obstetrics & Gynecology
DX: Z01.419 Encounter for gynecological examination (general) (routine) without abnormal findings (principal)
CPT/HCPCS: G0101

== ENCOUNTER 2023-05-02 11:05 | Outpatient (REF) | payer MEDICARE, MEDICAID, SELFPAY ==
[2023-05-06 02:48] LABS: HPV mRNA E6/E7 rflx Not Detected (Not Detected)
== END 2023-05-02 11:06 | disposition home or self-care (01) ==
LOC: HO.LNP 11:05
PROVIDERS: PCP Internal Medicine; Visit Provider Obstetrics & Gynecology
DX: Z01.419 Encounter for gynecological examination (general) (routine) without abnormal findings (principal)
CPT/HCPCS: 87624; 88142; G0101

== ENCOUNTER 2023-06-27 11:03 | Outpatient (AMB) | payer MEDICARE, MEDICAID, SELFPAY ==
--- OUTSIDE RECORDS SUMMARY | 2023-06-27 11:04 | XMS_ITS | Continuity of Care Document ---
Author Name Unknown Organization [facility] Address [address] [place] [address], [address] [place] [address]- Care Team Providers Care Tacker Off Name Role Phone Dae CAMPOS, Asma Primary Care Physician [phone] [place] [facility] [place] Date[place]s): 11/28/19 - 12/08/19 [facility] [address] [place] [address] Drive, [address] [place] [address]- [facility] Attending Physician: Admtr, [id number] Admitting Physician: AdmtrMarta Referring Physician: Admtr, Ar8 Allergies, Adverse Reactions, Alerts Substance Reaction Severity Status codeine n/v, passed out Active aspirin GI upset, hives Active Contrast Dye Active Medications Banophen By Mouth, 0 Refills, Maintenance, 08/25/17 6:16:14 Start Date: 08/25/17 Status: Ordered Banophen 25 mg oral capsule 2 capsule = 50 mg, By Mouth, Daily at bedtime, 0 Refills, Maintenance, 08/25/17 6:16:23 Start Date: 08/25/17 Status: Ordered Biktarvy By Mouth, Daily, 0 Refills, Maintenance, 09/03/19 14:35:36 EST Start Date: 09/03/19 Status: Ordered dolutegravir 50 mg oral tablet 1 tablet = 50 mg, By Mouth, Daily, clinical trial, # 30 tablet, 0 Refills, Maintenance, 08/25/17 6:19:21, Tablet Start Date: 08/25/17 Status: Ordered emtricitabine-tenofovir alafenamide 200 mg-25 mg oral tablet 1 tablet, By Mouth, Daily, clinical trial, # 30 tablet, 0 Refills, Maintenance, 08/25/17 6:17:52, Tablet Start Date: 08/25/17 Status: Ordered escitalopram 5 mg oral tablet 1 tablet = 5 mg, By Mouth, Daily, # 30 tablet, 0 Refills, Maintenance, 07/24/15 6:20:19, Tablet Start Date: 07/24/15 Status: Ordered Lyrica 150 mg oral capsule 1 capsule = 150 mg, By Mouth, 2 times a day, 0 Refills, Maintenance, 07/24/15 6:18:38, Capsule Start Date: 07/24/15 Status: Ordered Misc Rx See Instructions, Refills 0, Maintenance, bictegravir 50mg/ emtricitabine 200mg/ tenofovir alafenamide 25mg- clinical trial, 08/25/17 6:18:33, Compound Start Date: 08/25/17 Status: Ordered pantoprazole 40 mg oral delayed release tablet 1 tablet = 40 mg, By Mouth, Daily, # 30 tablet, 0 Refills, Maintenance, 07/24/15 6:19:36, EC Tablet Start Date: 07/24/15 Status: Ordered Sulfamethoxazole See Instructions, 1 tablet by mouth 3 times a week, 0 Refills, Maintenance, 08/25/17 6:15:22 Start Date: 08/25/17 Status: Ordered traMADol 50 mg oral tablet 1 tablet = 50 mg, By Mouth, Every 12 hours, PRN as needed for pain, 0 Refills, Maintenance, 04/27/16 15:47:07, Tablet Start Date: 04/27/16 Status: Ordered Ventolin HFA 108 mcg/inh inhalation aerosol with adapter See Instructions, PRN for wheezing, ventolin HFA 90 mcg inhaler, 2 puffs by mouth every 4 hours as needed, 0 Refills, Maintenance, 08/25/17 6:14:01, Aerosol Start Date: 08/25/17 Status: Ordered Vitamin D3 By Mouth, 0 Refills, Maintenance, 08/25/17 6:15:53 Start Date: 08/25/17 Status: Ordered Social History Social History Type Response Smoking Status Former smoker entered on: 04/27/16 Sex
--- OUTSIDE RECORDS SUMMARY | 2023-06-27 11:04 | XMS_ITS | Continuity of Care Document ---
Author Name Unknown Organization [facility] Address [address] [place] [address]- Care Team Providers Care Coding File Clerk Name Role Phone Dae CAMPOS, Asma Primary Care Physician [phone] Encounter [facility] [place] ACCT R [id number] Date(s): 09/01/20 - 10/01/[address] [address]- Attending Physician: Marta Arora Admitting Physician: Admtr, Marta Referring Physician: Admtr, Ar8 Allergies, Adverse Reactions, Alerts Substance Reaction Severity Status codeine n/v, passed out Active aspirin GI upset, hives Active Contrast Dye Active Medications Banophen 25 mg oral capsule 2 capsule = 50 mg, By Mouth, Daily at bedtime, 0 Refills, Maintenance, 08/25/17 6:16:23 Start Date: 08/25/17 Status: Ordered Biktarvy By Mouth, Daily, 0 Refills, Maintenance, 09/03/19 14:35:36 EST Start Date: 09/03/19 Status: Ordered pantoprazole 40 mg oral delayed release tablet 1 tablet = 40 mg, By Mouth, Daily, # 30 tablet, 0 Refills, Maintenance, 07/24/15 6:19:36, EC Tablet Start Date: 07/24/15 Status: Ordered Ventolin HFA 108 mcg/inh inhalation [...]
--- OUTSIDE RECORDS SUMMARY | 2023-06-27 11:05 | XMS_ITS | Continuity of Care Document ---
Author Name Unknown Organization [facility] Address [address] [place] [address]- Care Team Providers Care Paint Factory Worker Name Role Phone Dae CAMPOS, Asma Primary Care Physician [phone] [facility] [id number] Date(s): 08/04/21 - 09/03/[address] [address]- Attending Physician: Marta Arora Admitting Physician: AdmtrMarta Referring Physician: Admtr, Ar8 [...]
--- OUTSIDE RECORDS SUMMARY | 2023-06-27 11:05 | XMS_ITS | Continuity of Care Document ---
Author Name Unknown Organization [facility] Address [address] [place] [address]- Care Team Providers Care Field Superintendent Name Role Phone Dae CAMPOS, Asma Primary Care Physician En[facility] ACCT R [id number] Date(s): 12/27/22 - 01/26/[address] [address]- Attending Physician: Marta Arora Admitting Physician: Admtr, [...] Status Former smoker entered on: 04/27/16 Sex Patient Care team information Care Team Personnel Name: Dae CAMPOS, Vicky Position: [facility] Physician (General Medicine) Member Role: PCP Address: Address: [address] [place] [address]- Care Team Related Persons Name: GENEVA IGLESIAS Address: home [address], [place] Name: CONSTANCE SNEED Address: [address] [address]
--- OUTSIDE RECORDS SUMMARY | 2023-06-27 11:05 | XMS_ITS | Continuity of Care Document ---
Author Name Unknown Organization [facility] Address [address], [address] [place] [address]- Care Team Providers Care Hurricane Tracker Name Role Phone Dae CAMPOS, Asma Primary Care Physician [phone] Encounter [facility] [place] Date(s): 03/11/20 - 03/18/20 [facility] [address], [address] [place] [address]- [facility] Attending Physician: Kamari CAMPOS, Rebeca Monk Referring Physician: Duane Kincaid MD Allergies, Adverse Reactions, Alerts Substance Reaction Severity [...] 6:17:52, Tablet Start Date: 08/25/17 Status: Ordered Estrace Vaginal Cream 0.1 mg/g = 1 Gm, Vaginally, Daily at bedtime, take every night for two weeks then twice weekly, # 42.5 Gm, 11 Refills, Maintenance, 03/11/20 10:29:00 EDT, [facility]/pharmacy #[id number], 154.9, cm, 09/03/19 14:21:00 EST,Height Start Date: 03/11/20 Status: Ordered Misc Rx See Instructions, Refills 0, Maintenance, bictegravir 50mg/ emtricitabine 200mg/ tenofovir alafenamide 25mg- clinical trial, 08/25/17 6:18:33, Compound Start Date: 08/25/17 Status: Ordered oxybutynin 10 mg/24 hr oral tablet, extended release 1 tablet = 10 mg, By Mouth, Daily, # 30 tablet, 6 Refills, Maintenance, 03/11/20 10:30:00 EDT, ER Tablet, [facility]/pharmacy #[id number], 154.9, cm, 09/03/19 14:21:00 EST, Height Start Date: 03/11/20 Status: Ordered pantoprazole 40 mg oral delayed [...] 08/25/17 6:15:53 Start Date: 08/25/17 Status: Ordered Procedures Procedure Date Related Diagnosis Body Site Status section Complete d EGD - Esophagogastroduodenoscopy Completed Social History Social History Type Response Smoking Status Former smoker entered on: 04/27/16 Sex
--- OUTSIDE RECORDS SUMMARY | 2023-06-27 11:05 | XMS_ITS | Continuity of Care Document ---
Author Name Unknown Organization [facility] Address [address], [address] [place] [address]- Care Team Providers Care Photolithographic Stripper Name Role Phone aDe CAMPOS, Asma Primary Care Physician Encounter [facility] [facility] [id number] Date(s): 09/03/20 - 10/03/20 [facility] [address], [address] [place], [place] [address] Attending Physician: Marta Arora Admitting Physician: AdmtrMarta Referring Physician: Admtr, ArTyrone Allergies, Adverse Reactions, Alerts Substance Reaction Severity [...]
--- OUTSIDE RECORDS SUMMARY | 2023-06-27 11:05 | XMS_ITS | Continuity of Care Document ---
Author Name Unknown Organization [facility] Address [address], [address] [place] [address]- Care Team Providers Care Heavy Truck Mechanic Name Role Phone Dae CAMPOS, Asma Primary Care Physician [phone] [place] [facility] [place](s): 03/11/20 - 04/10/20 [facility] [address], [address] [place] [address]- [facility] Attending Physician: Marta Arora Admitting Physician: Marta Arora Referring Physician: Marta Arora Allergies, Adverse Reactions, Alerts Substance Reaction Severity [...] Gm, 11 Refills, Maintenance, 03/11/20 10:29:00 EDT, [facility]/pharmacy #[id number], 154.9, cm, 09/03/19 14:21:00 EST,Height Start Date: 03/11/20 Status: Ordered Misc Rx See Instructions, Refills 0, Maintenance, bictegravir 50mg/ emtricitabine 200mg/ tenofovir alafenamide 25mg- clinical trial, 08/25/17 6:18:33, Compound Start Date: 08/25/17 Status: Ordered oxybutynin 10 mg/24 hr oral tablet, extended release 1 tablet = 10 mg, By Mouth, Daily, # 30 tablet, 6 Refills, Maintenance, 03/11/20 10:30:00 EDT, ER Tablet, [facility]/pharmacy #[id number], 154.9, cm, 09/03/19 14:21:00 EST, Height [...]
--- OUTSIDE RECORDS SUMMARY | 2023-06-27 11:05 | XMS_ITS | Continuity of Care Document ---
Author Name Unknown Organization [facility] Address [address] [place] [address] giov[address], [address] [place] [address]- Care Team Providers Care Proofsheet Corrector Name Role Phone Dae [facility] Encounter [facility] [place] Date(s): 09/03/19 - 12/28/19 [facility] [address] [place] [address] Drive, [address] [place] [address]- [facility] Attending Physician: Miguel Ángel Lopez MD Allergies, Adverse Reactions, Alerts Substance Reaction [...]
--- OUTSIDE RECORDS SUMMARY | 2023-06-27 11:05 | XMS_ITS | Continuity of Care Document ---
Author Name Unknown Organization [facility] Address [address] [place] [address], [address] [place] [address]- Care Team Providers Care Market Researcher Name Role Phone Dae CAMPOS, Vicky Primary Care Physician [facility] [id number] Date(s): 06/06/20 - 10/04/20 [facility] [place] [facility] [address] [facility] [facility], [address] [place], [place] [address] Attending Physician: Rebeca Benites MD Admitting Physician: Rebeca Benites MD Referring Physician: Vicky Pearl MD Allergies, Adverse Reactions, Alerts Substance Reaction [...]
--- OUTSIDE RECORDS SUMMARY | 2023-06-27 11:05 | XMS_ITS | Continuity of Care Document ---
Author Name Unknown Organization [facility] Address [address] [place] [id number]- Care Team Providers Care Boiler Tube Reamer Name Role Phone Dae CAMPOS, Asma Primary Care Physician [phone] [place] [facility] [place] - 09/11/[address] [address] Attending Physician: AdmMarta edge Admitting Physician: AdmtrMarta Referring Physician: Admtr, [id number] [...] 0 Refills, Maintenance, 08/25/17 6:15:53 Start Date: 11/16/17 Status: Ordered Social History Social History Type Response Smoking Status Former smoker entered on: 04/27/16 Sex Patient Care team information Care Team Personnel Name: Dae CAMPOS, Vicky Position: [facility] Physician (General Medicine) Member Role: PCP Address: Address: [address] [place] [address]- Care Team Related Persons Name: GENEVA IGLESIAS Address: home [address] [place], [place] Name: CONSTANCE SNEED Address: [address] [address]
--- OUTSIDE RECORDS SUMMARY | 2023-06-27 11:05 | XMS_ITS | Continuity of Care Document ---
Author Name Unknown Organization [facility] Address [address] [place] [address]- Care Team Providers Care Shop Mechanic Helper Name Role Phone Dae CAMPOS, Asma Primary Care Physician [place] [facility] [place] - 09/11/[address] [address]- Attending Physician: Not on Staff, Attending MD Allergies, Adverse Reactions, Alerts Substance Reaction [...] Team Personnel Name: Dae CAMPOS, Vicky Position: [facility] Physician (General Medicine) Member Role: PCP Address: Address: [address] [place] [address]- Care Team Related Persons Name: GENEVA IGLESIAS Address: home [address] [place], [place] Name: CONSTANCE SNEED Address: [address] [place] [address]
[2023-06-27 11:56] VITALS: BP 130/80; PULSE 62; TEMP 36.4; O2SAT 99; BMI 31.1
--- NOTE | 2023-06-27 11:56 | AM.OFFWIN_ITS ---
Intake Vital Signs 06/27/23 11:56 Height 5 ft 1 in Weight 164 lb 8 oz BMI 31.1 BP 130/80 Blood Pressure Location Rt brachial Position Sitting Pulse 62 Pulse Source Pulse Oximeter Temp 97.6 F Temp Source Temporal Artery Scan Pulse Oximetry (%) 99 Oxygen Delivery Method Room Air Intake Visit Reasons: EST/left shoulder pain Intake Note: pt is here for c/o left shoulder pain, denies injury but patient was helping daughter move heavy boxes Patient Tobacco Use Status: Former Tobacco user Quit Date: 1984 Allergies aspirin [ASPIRIN] Allergy (Intermediate, Verified 06/27/23 12:31) HIVES, stomach upset codeine [CODEINE] Allergy (Intermediate, Verified 06/27/23 12:31) NAUSEA & VOMITING, drowsy, upset stomach ondansetron [Zofran] Allergy (Intermediate, Verified 06/27/23 12:31) headache Iodinated Contrast Media [IV Contrast Dye] Allergy (Verified 06/27/23 12:31) Unknown Medication List - Last Reconciled 06/27/23 by Sachin Pineda MD acetaminophen ER (Arthritis Pain Relief (acetaminophen) ER) 1,300 mg (2 x 650 mg) PO Q12H 14 days albuterol sulfate 90 mcg/actuation 1 inh inhalation QID PRN atenolol 25 mg PO DAILY 90 days jlnzhrbqb-whmxkrxi-laaxeuh ala 50-200-25 mg (Biktarvy) 1 tab PO DAILY cyclobenzaprine 10 mg PO BEDTIME PRN diphenhydramine HCl (Banophen) 50 mg PO BEDTIME fluticasone propionate 50 mcg/actuation 1 spray intranasal DAILY gabapentin 200 mg (2 x 100 mg) PO BID hydroxyzine HCl 10 - 20 mg PO BEDTIME ibuprofen 600 mg PO Q6H PRN metronidazole 0.75% appl topical DAILY pantoprazole 40 mg PO DAILY polyethylene glycol 3350 (Miralax) 17 grams PO DAILY triamcinolone acetonide 0.1% topical BEDTIME valacyclovir 1,000 mg PO BID Do you need a note to return to daycare/school/sports/work: Yes HPI EST/left shoulder pain HPI Details 62-year-old female presents to the [facility] for a sick visit. Patient is reporting sharp pain in the left arm for a month. Symptoms started after she helped move her daughter into a new apartment. She was lifting heavy furniture. Unable to lift her arm over the shoulder level. [facility] Medical History (Updated 06/27/23 @ 12:33 by Sachin Pineda MD) Tubular adenoma Shoulder pain, right GERD (gastroesophageal reflux disease) Dysplasia of cervix, low grade (TOMA 1) Pulmonary nodules Abnormal EKG Knee pain, left Abnormal Pap smear of cervix Osteoarthritis Anxiety, generalized Chronic GERD HIV positive Surgical History History of esophagogastroduodenoscopy (EGD) History of colonoscopy History of section History of bilateral tubal ligation Family History Father CVD (cardiovascular disease) Mother Arthritis Social History Housing: House Alcohol intake: never Patient Tobacco Use Status: Former Tobacco user Quit Date: 1984 Tobacco use type: Cigarette e-Cigarette/Vaping Use: Never Used service: No Current occupational status: employed and disabled Cognitive needs: No Hearing needs: No Vision needs: Yes Female Reproductive History Menstrual Age of Menarche: 11 Physical Exam Vital Signs: Last Vital Signs Temp 97.6 F 06/27/23 11:56 Pulse 62 06/27/23 11:56 BP 130/80 06/27/23 11:56 Pulse Ox 99 06/27/23 11:56 Oxygen Delivery Method Room Air 06/27/23 11:56 BMI result Body Mass Index 31.1 Extrem Other: Left shoulder: AC joint tenderness present. Pain on abduction greater than 50 degrees. Unable to abduct greater than 90 degrees. Full adduction. Full internal and external rotation. Assessment & Plan Assessment & Plan (1) Sprain of left shoulder: Code(s): S43.402A - Unspecified sprain of left shoulder joint, initial encounter Qualifiers: Encounter type: initial encounter Shoulder sprain type: unspecified sprain Qualified Code(s): S43.402A - Unspecified sprain of left shoulder joint, initial encounter Plan: X-ray images personally reviewed by me. X-ray shows a possible bone spur. Arm sling provided nonsteroidals prescribed. Orders: Orders XR shoulder LT min 2V Today S43.402A - Unspecified sprain of left shoulder joint, initial encounter Coding Level of Care Code Est Pt Level 4 (34110) Diagnoses Sprain of left shoulder, unspecified shoulder sprain type, initial encounter S43.402A Encounter type: initial encounter Shoulder sprain type: unspecified sprain
== END 2023-06-27 13:25 | disposition home or self-care (01) ==
PROVIDERS: PCP Internal Medicine; Visit Provider Internal Medicine
DX: S43.402A Unspecified sprain of left shoulder joint, initial encounter (principal)
CPT/HCPCS: 99214

== ENCOUNTER 2023-06-27 12:26 | Outpatient (REF) | payer MEDICARE, MEDICAID, SELFPAY ==
--- NOTE | ~2023-06-27 | XR_ITS ---
EXAMINATION: XR SHOULDER, LEFT CLINICAL INFORMATION: Brain of left shoulder joint. COMPARISON: None available. TECHNIQUE: AP external rotation, Grashey, scapular Y, and axillary views of the left shoulder. FINDINGS: There is loss of left AC joint space with moderate periarticular spurring. No visible acute fracture, dislocation or subluxation seen. There is small enthesophyte along the greater tuberosity likely calcific tendinitis. There is no acute fracture or dislocation seen. Rest of the soft tissues are normal.. XR/XR shoulder LT min 2V IMPRESSION: 1. Degenerative arthritic changes left AC joint. No visible acute fracture or dislocation seen. 2. Small enthesophyte along the greater tuberosity likely calcific tendinitis.
== END 2023-06-27 12:27 | disposition home or self-care (01) ==
LOC: HO.HMGCX 12:26
PROVIDERS: PCP Internal Medicine; Visit Provider Internal Medicine
DX: S43.402A Unspecified sprain of left shoulder joint, initial encounter (principal)
CPT/HCPCS: 73030

== ENCOUNTER 2023-07-05 13:18 | Outpatient (AMB) | payer MEDICARE, MEDICAID, SELFPAY ==
--- NOTE | 2023-07-05 13:19 | A.OFFPC_ITS ---
Vital Signs 07/05/23 13:21 Height 5 ft 1 in Weight 164 lb BMI 31.0 BP 110/68 Blood Pressure Location Rt brachial Position Sitting Pulse 67 Pulse Source Pulse Oximeter Pulse Oximetry (%) 98 Oxygen Delivery Method Room Air Intake Visit Reasons: Annual PE Allergies aspirin [ASPIRIN] Allergy (Intermediate, Verified 07/05/23 13:21) HIVES, stomach upset codeine [CODEINE] Allergy (Intermediate, Verified 07/05/23 13:21) NAUSEA & VOMITING, drowsy, upset stomach ondansetron [Zofran] Allergy (Intermediate, Verified 07/05/23 13:21) headache Iodinated Contrast Media [IV Contrast Dye] Allergy (Verified 07/05/23 13:21) Unknown Medication List - Last Reconciled 07/05/23 by Vicky Pearl MD acetaminophen ER (Arthritis Pain Relief (acetaminophen) ER) 1,300 mg (2 x 650 mg) PO Q12H 14 days albuterol sulfate 90 mcg/actuation 1 inh inhalation QID PRN atenolol 25 mg PO DAILY 90 days ydrsszdff-mtacavbf-rrlokzl ala 50-200-25 mg (Biktarvy) 1 tab PO DAILY cyclobenzaprine 10 mg PO BEDTIME PRN diphenhydramine HCl (Banophen) 50 mg PO BEDTIME fluticasone propionate 50 mcg/actuation 1 spray intranasal DAILY gabapentin 200 mg (2 x 100 mg) PO BID hydrocortisone 2.5% 1 appl topical BID PRN hydroxyzine HCl 10 - 20 mg PO BEDTIME ibuprofen 600 mg PO Q6H PRN meloxicam 15 mg PO DAILY metronidazole 0.75% appl topical DAILY pantoprazole 40 mg PO DAILY triamcinolone acetonide 0.1% topical BEDTIME valacyclovir 1,000 mg PO BID Tobacco use date assessed: 07/05/23 Dental Screening Dental Screen Date: 07/05/23 Did you have a dental visit in the last 12 months?: Yes Did you have a dental problem in the last 6 months where you did not have access to dental care?: No Was dental information given to patient?: Patient has dentist HPI Annual PE HPI Details Patient is a 62-year-old female came in today for physical examination Medication list reviewed Blood pressure is stable patient is taking atenolol 25 mg, tolerating medication She continued to have pain left shoulder she had an x-ray done which shows arthritic changes, I have placed referral to orthopedic. Labs are needed to be done fasting Patient have a chronic GERD she has appointment coming up with the gastroenterology is she is taking Protonix Continued to have pain epigastric area I have sent Carafate she may that 1 every 8 hour as needed Also advised patient not to take NSAIDs again. He has taken meloxicam for a while for joint aches and pains. Patient is HIV positive and is under care of Infectious Disease. Mammogram appointment is coming up Patient has seen OBGYN in April Colonoscopy is to Gastroenterology. Follow-up 1 year for physical exam. [facility] Medical History Tubular adenoma Shoulder pain, right GERD (gastroesophageal reflux disease) Dysplasia of cervix, low grade (TOMA 1) Pulmonary nodules Abnormal EKG Knee pain, left Abnormal Pap smear of cervix Osteoarthritis Anxiety, generalized Chronic GERD HIV positive Surgical History History of esophagogastroduodenoscopy (EGD) History of colonoscopy History of section History of bilateral tubal ligation Family History Father CVD (cardiovascular disease) Mother Arthritis Social History Housing: House Alcohol intake: never Patient Tobacco Use Status: Former Tobacco user Quit Date: 1984 Tobacco use type: Cigarette e-Cigarette/Vaping Use: Never Used service: No Current occupational status: employed and disabled Cognitive needs: No Hearing needs: No Vision needs: Yes Female Reproductive History Menstrual Age of Menarche: 11 Questionnaire PHQ-9 Over the last 2 weeks, how often have you been bothered by any of the following problems? 1. Little interest or pleasure in doing things: not at all 2. Feeling down, depressed, or hopeless: not at all 3. Trouble falling or staying asleep, or sleeping too much: nearly every day 4. Feeling tired or having little energy: several days 5. Poor appetite or overeating: not at all 6. Feeling bad about yourself - or that you are a failure or have let yourself or your family down: not at all 7. Trouble concentrating on things, such as reading the newspaper or watching television: not at all 8. Moving or speaking so slowly that other people could have noticed. Or the opposite - being so fidgety or restless that you have been moving around a lot more than usual: not at all 9. Thoughts that you would be better off or of hurting yourself in some way: not at all Total score: 4 Depression Screening Interpretation: Negative 36864 - PHQ-9 Billing: Yes Source: Developed by Drs. Miguel Ángel Toth, Georgia Ferrari, Ryan Funez and colleagues, with an educational bart from [employer]. Thrive Questionnaire Date Thrive assessed: 06/16/22 AUDIT C Alcohol Use Questionnaire (AUDIT-C) 1. How often do you have a drink containing alcohol?: Never 3. How often do you have six or more drinks on one occasion?: Never Total Score: 0 Score Reviewed/Action Taken: Yes IAN-7 AMB Questionnaire IAN-7 Date IAN - 7 assessed: 06/16/22 Source: Developed by Drs. Miguel Ángel Toth, Georgia Ferrari, Ryan Funez and colleagues, with an educational bart from [employer]. Review of Systems Const Denies chills, Denies fever(s) and Denies headache(s) Eyes Denies blurry vision ENT Denies headache(s), Denies nasal discharge, Denies nasal obstruction, Denies odynophagia and Denies sinus pain Card Denies chest pain at rest and Denies chest pain with activity Resp Denies cough and Denies hemoptysis GI Denies diarrhea, Denies odynophagia, Denies vomiting and Denies hematemesis Reports as per HPI Musc Denies abnormal gait Skin/Breast Reports as per HPI Neuro Denies Neuro-related abnormal movements, Denies Abnormal speech present, Denies abnormal gait, Denies headache(s) and Denies Sensory deficit (Neuro) Psych Denies mood swings and Denies paranoia Endo Reports as per HPI Mohamud/Lymph Reports as per HPI Aller/Immun Reports as per HPI Physical exam (Primary Care) Vital Signs: Last Vital Signs Pulse 67 07/05/23 13:21 BP 110/68 07/05/23 13:21 Pulse Ox 98 07/05/23 13:21 Oxygen Delivery Method Room Air 07/05/23 13:21 BMI result Body Mass Index 31.0 Tobacco/Smoking Status: Tobacco use Status Tobacco use date assessed 07/05/23 07/05/23 13:20 Patient Tobacco Use Status Former Tobacco user 07/05/23 13:20 Tobacco use type Cigarette 07/05/23 13:20 e-Cigarette/Vaping Use Never Used 07/05/23 13:20 Depression Screening Interpretation: Negative Thrive Assessment: Date of Thrive Assessment Date Thrive assessed 06/16/22 07/05/23 13:20 Const General: cooperative, comfortable and no acute distress Orientation/consciousness: patient oriented x3 HENMT Head: Yes normocephalic and Yes atraumatic Eyes General: appearance normal, both eyes and all related structures Pupils: Equal, round and reactive pupils present EOM: EOMs intact bilaterally Neck Neck: Yes supple and No lymphadenopathy Thyroid: Thyroid normal Lymphatic: no lymphadenopathy noted Resp Effort & Inspection: normal respiratory effort and able to speak in complete sentences Auscultation: clear to auscultation bilaterally Cardio Heart sounds: S1 normal heart sound present and S2 normal heart sound present GI Palpation (GI): Soft to palpation Auscultation: normal bowel sounds General: Yes no CVA tenderness Back/Spine/Pelvis Back: no CVA tenderness Skin General skin exam: elasticity normal and turgor normal Neuro General: patient oriented x3 and gait normal Cranial nerves: Yes Equal, round and reactive pupils present Speech: No Abnormal speech present Sensory Exam: No Sensory deficit (Neuro) Coordination: Romberg test negative Extrem General: Yes normal exam except as noted and No edema Assessment and Plan Assessment & Plan (1) Encounter for general adult medical examination with abnormal findings: Code(s): Z00.01 - Encounter for general adult medical examination with abnormal findings (2) Obesity due to excess calories: Code(s): E66.09 - Other obesity due to excess calories Qualifiers: Body mass index: BMI 31.0-31.9 Obesity classification: adult class 1 (BMI 30 - 34.9) Serious obesity comorbidity presence: with serious comorbidity Qualified Code(s): E66.09 - Other obesity due to excess calories; Z68.31 - Body mass index [BMI] 31.0-31.9, adult (3) Hypertension, essential: Code(s): I10 - Essential (primary) hypertension (4) Generalized body aches: Code(s): R52 - Pain, unspecified (5) HIV positive: Code(s): Z21 - Asymptomatic human immunodeficiency virus [HIV] infection status Plan Patient is a 62-year-old female came in today for physical examination Medication list reviewed Blood pressure is stable patient is taking atenolol 25 mg, tolerating medication She continued to have pain left shoulder she had an x-ray done which shows arthritic changes, I have placed referral to orthopedic. Labs are needed to be done fasting Patient have a chronic GERD she has appointment coming up with the gastroenterology is she is taking Protonix Continued to have pain epigastric area I have sent Carafate she may that 1 every 8 hour as needed Also advised patient not to take NSAIDs again. He has taken meloxicam for a while for joint aches and pains. Patient is HIV positive and is under care of Infectious Disease. Mammogram appointment is coming up Patient has seen OBGYN in April Colonoscopy is to Gastroenterology. Follow-up 1 year for physical exam. Orders: Orders Comprehensive [place]. Panel Fast Today E66.09 - Other obesity due to excess calories, I10 - Essential (primary) hypertension, M25.512 - Pain in left shoulder, R52 - Pain, unspecified, Z00.01 - Encounter for general adult medical examination with abnormal findings, Z21 - Asymptomatic human immunodeficiency virus [HIV] infection status Lipid Panel Today E66.09 - Other obesity due to excess calories, I10 - Essential (primary) hypertension, M25.512 - Pain in left shoulder, R52 - Pain, unspecified, Z00.01 - Encounter for general adult medical examination with abnormal findings, Z21 - Asymptomatic human immunodeficiency virus [HIV] infection status Vitamin B12 Today E66.09 - Other obesity due to excess calories, I10 - Essential (primary) hypertension, M25.512 - Pain in left shoulder, R52 - Pain, unspecified, Z00.01 - Encounter for general adult medical examination with abnormal findings, Z21 - Asymptomatic human immunodeficiency virus [HIV] infection status Complete Blood Count Auto Diff Today E66.09 - Other obesity due to excess calories, I10 - Essential (primary) hypertension, M25.512 - Pain in left shoulder, R52 - Pain, unspecified, Z00.01 - Encounter for general adult medical examination with abnormal findings, Z21 - Asymptomatic human immunodeficiency virus [HIV] infection status Vitamin D 25-OH (D2 and D3) Today E66.09 - Other obesity due to excess calories, I10 - Essential (primary) hypertension, M25.512 - Pain in left shoulder, R52 - Pain, unspecified, Z00.01 - Encounter for general adult medical examination with abnormal findings, Z21 - Asymptomatic human immunodeficiency virus [HIV] infection status Medications: New sucralfate (Carafate) 1 g PO TID 21 tabs 0RF stomach pain 7 days Discontinued ibuprofen Discontinued Reason: Doctor's Order 600 mg PO Q6H PRN 60 tabs 0RF pain meloxicam Discontinued Reason: Doctor's Order 15 mg PO DAILY 14 tabs 0RF Coding Level of Care Code Est Pt Prev Care 40-64y([address]) Diagnoses Encounter for general adult medical examination with abnormal findings Z00.01 Class 1 obesity due to excess calories with serious comorbidity and body mass index (BMI) of 31.0 to 31.9 in adult E66.09; Z68.31 Body mass index: BMI 31.0-31.9 Obesity classification: adult class 1 (BMI 30 - 34.9) Serious obesity comorbidity presence: with serious comorbidity Hypertension, essential I10 Generalized body aches R52 HIV positive Z21
[2023-07-05 13:21] VITALS: BP 110/68; PULSE 67; O2SAT 98; BMI 31.0
== END 2023-07-05 13:47 | disposition home or self-care (01) ==
PROVIDERS: PCP Internal Medicine; Visit Provider Internal Medicine
DX: Z00.01 Encounter for general adult medical examination with abnormal findings (principal); Z68.31 Body mass index [BMI] 31.0-31.9, adult; Z21 Asymptomatic human immunodeficiency virus [HIV] infection status; I10 Essential (primary) hypertension; E66.09 Other obesity due to excess calories; R52 Pain, unspecified
CPT/HCPCS: 99396

== ENCOUNTER 2023-07-08 08:01 | Outpatient (AMB) | payer MEDICARE, MEDICAID, SELFPAY ==
--- NOTE | 2023-07-08 08:13 | MHC.OFFVIS ---
Intake Vital Signs 07/08/23 08:14 Height 5 ft 1 in Weight 164 lb BMI 31.0 BP 129/60 Blood Pressure Location Lt brachial Position Sitting Pulse 68 Intake Visit Reasons: Dysphagia Intake Note: Patient followup for dysphagia. Patient cc: abdominal pain with some acid reflex and Esophagus pain. Denies any other GI issues. Landscape Painter Required: Yes Landscape Painter Name: [facility] interpeter Allergies aspirin [ASPIRIN] Allergy (Intermediate, Verified 07/08/23 08:12) HIVES, stomach upset codeine [CODEINE] Allergy (Intermediate, Verified 07/08/23 08:12) NAUSEA & VOMITING, drowsy, upset stomach ondansetron [Zofran] Allergy (Intermediate, Verified 07/08/23 08:12) headache Iodinated Contrast Media [IV Contrast Dye] Allergy (Verified 07/08/23 08:12) Unknown HPI Dysphagia HPI Details LAST VISIT: GERD (gastroesophageal reflux disease) Will start patient on pantoprazole. Patient was encouraged to avoid dietary triggers and late night snacking. Staying upright for minimal 3 hours after meals discussed with patient. Constipation Continue MiraLax daily. Patient increased water intake and activity. Patient states that also she is eating more vegetables. Eating healthier. I will see her in 6 months, sooner on as needed basis. Patient is agreeable to this plan and verbalizes understanding of instructions. She was given the opportunity to ask questions and all questions answered. TODAY'S VISIT Patient is here today for request that. Patient reports to epigastric pain with dyspepsia and dysphagia. Patient reports to have burning in the chest. Denies chest pain, shortness of breath with or without exertion. Patient states that on the of this month she was placed on meloxicam for left shoulder pain and couple days later started experiencing epigastric pain. Patient denies any nausea or vomiting. Reports that she is moving her bowels well without any issues. Last denies melena, hematochezia unintentional weight loss or ribbon like stools. Patient reports that she has been taking pantoprazole, however does not feel like it helps her anymore. PCP send her script for sucralfate, however patient has not started taking it yet [facility] Medical History Tubular adenoma Shoulder pain, right GERD (gastroesophageal reflux disease) Dysplasia of cervix, low grade (TOMA 1) Pulmonary nodules Abnormal EKG Knee pain, left Abnormal Pap smear of cervix Osteoarthritis Anxiety, generalized Chronic GERD HIV positive Surgical History History of esophagogastroduodenoscopy (EGD) History of colonoscopy History of section History of bilateral tubal ligation Family History Father CVD (cardiovascular disease) Mother Arthritis Social History Housing: House Alcohol intake: never Patient Tobacco Use Status: Former Tobacco user Quit Date: 1984 Tobacco use type: Cigarette e-Cigarette/Vaping Use: Never Used service: No Current occupational status: employed and disabled Cognitive needs: No Hearing needs: No Vision needs: Yes Female Reproductive History Menstrual Age of Menarche: 11 Review of Systems Const Denies weight gain and Denies weight loss ENT Reports no additional complaints, Reports dysphagia and Denies odynophagia Card Reports no additional complaints Resp Reports no additional complaints GI Denies abdominal pain, Denies belching, Denies melena, Denies bloating, Denies change in bowel habits, Reports dysphagia, Denies excessive flatus, Denies dyspepsia, Reports heartburn, Denies diarrhea, Denies loose stools, Denies nausea, Denies odynophagia and Denies vomiting Reports no additional complaints Musc Reports no additional complaints Neuro Reports no additional complaints Psych Reports no additional complaints Endo Reports no additional complaints Physical Exam Vital Signs: Last Vital Signs Pulse 68 07/08/23 08:14 BP 129/60 07/08/23 08:14 BMI result Body Mass Index 31.0 Const General: healthy appearing, no acute distress and well developed Nutritional Appearance: obese Orientation/consciousness: patient oriented x3 HEENT Head: Yes normal to inspection, Yes normocephalic and Yes atraumatic Face and sinus: Yes normal facial exam Mouth: Normal oral and palatal mucosa present Throat: Yes posterior oropharynx normal, Yes tonsils normal and Yes uvula midline Eyes General: appearance normal, both eyes and all related structures Neck Neck: Yes normal visual inspection, Yes full ROM and Yes trachea midline Thyroid: Thyroid normal Resp Effort & Inspection: normal respiratory effort, able to speak in complete sentences, no tracheal deviation and symmetric chest movement Auscultation: clear to auscultation bilaterally Cardio Rate: regular rate Heart sounds: S1 normal heart sound present and S2 normal heart sound present GI Inspection: Yes normal to inspection, No distended and Yes obesity Palpation (GI): Soft to palpation, not firm, nontender and No hepatosplenomegaly present Auscultation: normal bowel sounds General: Yes no CVA tenderness Back/Spine/Pelvis Back: no CVA tenderness Skin General skin exam: elasticity normal, turgor normal and dry skin Neuro General: patient oriented x3 Psych Appearance: grossly normal Mental Status: mental status grossly normal Speech and movement: Normal speech and movement present Assessment & Plan Assessment & Plan (1) GERD (gastroesophageal reflux disease): Code(s): K21.9 - Gastro-esophageal reflux disease without esophagitis Qualifiers: Esophagitis presence: without esophagitis Qualified Code(s): K21.9 - Gastro-esophageal reflux disease without esophagitis Plan: Will stop pantoprazole and start patient on Nexium. Will add sucralfate at bedtime. Patient was encouraged to avoid dietary triggers and late night snacking. Staying upright for minimum 3 hours after meals discussed with patient. Avoid NSAIDs (2) Dysphagia: Code(s): R13.10 - Dysphagia, unspecified Qualifiers: Dysphagia type: unspecified Qualified Code(s): R13.10 - Dysphagia, unspecified Plan: Patient reports occasional dysphagia mostly solid foods. Patient reports just recently after she started taking meloxicam, she was taking it for 4 days then patient stopped. Will send her for barium swallow. Swallow precautions discussed with patient. Patient has an appointment with me on September 06 will see her then, sooner on as needed basis. Patient is agreeable to this plan and verbalizes understanding all instructions. She was given the opportunity to ask questions and all questions answered. Thank you for allowing me to participate in her care Orders: Orders FL barium swallow Today R13.10 - Dysphagia, unspecified Medications: New esomeprazole magnesium (Nexium) 40 mg PO DAILY 30 caps 5RF K21.9 - Gastro-esophageal reflux disease without esophagitis sucralfate 1 g PO BEDTIME 30 tabs 3RF R19.7 - Diarrhea, unspecified Discontinued pantoprazole Discontinued Reason: Doctor's Order 40 mg PO DAILY 90 tabs 2RF Coding Level of Care Code Est Pt Level 4 (23405) Diagnoses Gastroesophageal reflux disease without esophagitis K21.9 Esophagitis presence: without esophagitis Dysphagia, unspecified type R13.10 Dysphagia type: unspecified Time Spent (min) 35 Comment 20 minutes spent with patient and additional 15 minutes spent reviewing her records
[2023-07-08 08:14] VITALS: BP 129/60; PULSE 68; BMI 31.0
== END 2023-07-08 08:34 | disposition home or self-care (01) ==
PROVIDERS: PCP Internal Medicine; Visit Provider Nurse Practitioner Family
DX: K21.9 Gastro-esophageal reflux disease without esophagitis (principal); R13.10 Dysphagia, unspecified
CPT/HCPCS: 99214

== ENCOUNTER → 2023-07-08 08:01 | Outpatient (BNVA) | payer MEDICARE, MEDICAID, SELFPAY | PROVIDERS: PCP Internal Medicine; Visit Provider Nurse Practitioner Family | CPT/HCPCS: 99212 ==

== ENCOUNTER 2023-07-08 09:07 | Outpatient (REF) | payer MEDICARE, MEDICAID, SELFPAY ==
[2023-07-08 11:14] LABS: MANUAL DIFF FLAG NO
[2023-07-08 11:35] LABS: Basophils Percent Auto 0.6 % (0-2); Eosinophils Absolute Auto 0.1 X10*3/uL (0.0-0.4); Eosinophils Percent Auto 1.5 % (0-4); Hematocrit 40.1 % (37.0-47.0); Imm Gran Abs Auto 0.01 X10*3/uL (0.00-0.03); Imm Gran Pct Auto 0.3 % (0.0-0.4); Lymphocytes Absolute Auto 0.7 X10*3/uL (1.2-4.9); Lymphocytes Percent Auto 21.2 % (20-40); Mean Corpuscular HGB Conc 32.4 g/dl (31.0-35.0); Mean Corpuscular Hemoglobin 29.8 pg (27.0-33.0); Monocytes Absolute Auto 0.3 X10*3/uL (0.1-1.2); Monocytes Percent Auto 8.9 % (2-11); Neutrophils Absolute Auto 2.2 x10*3/uL (2.0-8.3); Neutrophils Percent Auto 67.5 % (45-73); Platelet Count 261 X10*3/uL (160-400); Red Blood Count 4.36 X10*6/uL (4.20-5.50); Red Cell Distribution Width 12.4 % (11.0-16.0); White Blood Count 3.3 X10*3/uL (4.8-10.8)
[2023-07-08 12:01] LABS: Alanine Aminotransferase 45 U/L (0-31); Albumin Level 4.6 g/dL (3.5-5.0); Alkaline Phosphatase 69 U/L (39-117); Anion Gap 16 (12-20); Aspartate Amino Transferase 40 U/L (5-31); Bilirubin Total 0.5 mg/dL (0.0-1.0); Blood Urea Nitrogen 25 mg/dL (9-16); Calcium 9.8 mg/dL (8.4-10.2); Carbon Dioxide 26 mmol/L (22-29); Chloride 103 mmol/L (96-108); Cholesterol 184 mg/dL (<200); Estimated Glomerular Filt Rate > 60; Glucose Fasting 90 mg/dL (60-99); HDL Cholesterol 52 mg/dL (>40); LDL Cholesterol Calculated 119 mg/dL (<100); Potassium 4.2 mmol/L (3.3-5.1); Sodium 141 mmol/L (135-145); Total Protein 7.9 g/dL (6.5-8.0); Triglycerides 69 mg/dL (<150)
[2023-07-08 12:14] LABS: Vitamin B12 542 pg/mL (200-900)
[2023-07-13 14:54] LABS: Vitamin D 25-OH, D2 <4 ng/mL; Vitamin D 25-OH, D3 24 ng/mL; Vitamin D 25-OH, Total 24 ng/mL (30-100)
== END 2023-07-08 09:08 | disposition home or self-care (01) ==
LOC: HO.HMGCLDS 09:07
PROVIDERS: PCP Internal Medicine; Visit Provider Internal Medicine
DX: Z00.01 Encounter for general adult medical examination with abnormal findings (principal); E66.09 Other obesity due to excess calories; I10 Essential (primary) hypertension; R52 Pain, unspecified; M25.512 Pain in left shoulder; R13.10 Dysphagia, unspecified; Z21 Asymptomatic human immunodeficiency virus [HIV] infection status
CPT/HCPCS: 36415; 80053; 80061; 82306; 82607; 85025; 99212

== ENCOUNTER 2023-07-15 09:49 | Outpatient (AMB) | payer MEDICARE, MEDICAID, SELFPAY ==
--- NOTE | 2023-07-15 11:36 | MHC.OFFWIV ---
Intake Vital Signs 07/15/23 11:37 Weight 168 lb BP 140/90 H Blood Pressure Location Rt brachial Position Sitting Pulse 68 Pulse Source Pulse Oximeter Temp 97.6 F Temp Source Oral Pulse Oximetry (%) 97 Oxygen Delivery Method Room Air Intake Visit Reasons: EP, cough, fatigue (masked) Intake Note: Patient here for cough that has been present for about 1 week, she has complaints of back pain due to coughing so much. she also been feeling fatigued and lost her voice. Patient Tobacco Use Status: Former Tobacco user Quit Date: 1984 Allergies aspirin [ASPIRIN] Allergy (Intermediate, Verified 07/15/23 11:39) HIVES, stomach upset codeine [CODEINE] Allergy (Intermediate, Verified 07/15/23 11:39) NAUSEA & VOMITING, drowsy, upset stomach ondansetron [Zofran] Allergy (Intermediate, Verified 07/15/23 11:39) headache Iodinated Contrast Media [IV Contrast Dye] Allergy (Verified 07/15/23 11:39) Unknown Do you need a note to return to daycare/school/sports/work: No HPI HPI Comments History of Present Illness Details This is a 62-year-old female who presents to the office today for sick visit. Patient complaining of persistent cough x1 week. she states the cough is sometimes productive with clear sputum. She denies any chest pain or shortness of breath. She denies any fevers or chills. She denies any congestion / rhinorrhea. Patient states that she is feeling fatigued and has a mild sore throat. She denies congestion, rhinorrhea, or otalgia. REPLACED BY [facility] Medical History Tubular adenoma Shoulder pain, right GERD (gastroesophageal reflux disease) Dysplasia of cervix, low grade (TOMA 1) Pulmonary nodules Abnormal EKG Knee pain, left Abnormal Pap smear of cervix Osteoarthritis Anxiety, generalized Chronic GERD HIV positive Surgical History History of esophagogastroduodenoscopy (EGD) History of colonoscopy History of section History of bilateral tubal ligation Family History Father CVD (cardiovascular disease) Mother Arthritis Social History Housing: House Alcohol intake: never Patient Tobacco Use Status: Former Tobacco user Quit Date: 1984 Tobacco use type: Cigarette e-Cigarette/Vaping Use: Never Used service: No Current occupational status: employed and disabled Cognitive needs: No Hearing needs: No Vision needs: Yes Female Reproductive History Menstrual Age of Menarche: 11 Review of Systems Const All systems reviewed & are unremarkable except as noted in HPI and below Reports no additional complaints Eyes Reports no additional complaints ENT Reports no additional complaints Card Reports no additional complaints Resp Reports no additional complaints GI Reports no additional complaints Reports no additional complaints Musc Reports no additional complaints Skin/Breast Reports system reviewed and no additional complaints, except as documented Neuro Reports no additional complaints Psych Reports no additional complaints Endo Reports no additional complaints Mohamud/Lymph Reports no additional complaints Aller/Immun Reports no additional complaints Physical Exam Vital Signs: Last Vital Signs Temp 97.6 F 07/15/23 11:37 Pulse 68 07/15/23 11:37 BP 140/90 H 07/15/23 11:37 Pulse Ox 97 07/15/23 11:37 Oxygen Delivery Method Room Air 07/15/23 11:37 Const Other: Vital signs reviewed. Constitutional: Non-toxic appearing. No acute distress. Well-developed and well-nourished. HEENT: Normocephalic and atraumatic. Tympanic membranes without erythema, edema, or bulging bilaterally. External auditory canals without erythema or edema bilaterally. Moist mucous membranes. Mild posterior pharyngeal erythema but no edema or exudates. Skin: Warm and dry. No rashes or lesions noted. Neck: Full and painless range of motion. No cervical lymphadenopathy. Cardio: Regular rate and rhythm. No murmurs, gallops, or rubs. No lower extremity edema. No JVD. Pulmonary: No respiratory distress. No accessory muscle usage. Clear to auscultation bilaterally without wheezing, crackles, or rhonchi. Gastrointestinal: Soft, nontender, and nondistended in all 4 quadrants. Normoactive bowel sounds in all 4 quadrants. Genitourinary: No CVA tenderness. Musculoskeletal: Normal range of motion in joints throughout the body. No deformity or other signs of injury. Neuro: Alert and oriented x4. Cranial nerves 2-12 grossly intact. No focal deficits appreciated. Psych: Normal mood and affect. Assessment & Plan Assessment & Plan (1) Acute bronchitis: Code(s): J20.9 - Acute bronchitis, unspecified Plan: This is a 62-year-old female presenting to the office complaining of a persisting cough x1 week, which is intermittently productive with clear sputum. On physical examination, her lungs are clear to auscultation bilaterally. Patient's vital signs are stable, her physical exam is benign, and she is overall nontoxic appearing. Her history and physical most consistent with an acute bronchitis. Patient sent home on p.o. prednisone 40 mg daily x5 days. A Chest x-ray was obtained. If there is any evidence of pneumonia, we will call in a Z-Marvin as well. Recommended symptomatic management including rest, increased fluids, advil/tylenol for pain/fever, and over the counter throat lozenges/decongestants. Patient was advised to follow-up here or proceed directly to the emergency room if she were to develop worsening/ persistent symptoms including shortness of breath, fever/chills, or hemoptysis. Patient verbalizes her understanding and she is in agreement with the plan. Orders: Orders XR chest 2V Today R05.9 - Cough, unspecified Medications: New prednisone 40 mg (2 x 20 mg) PO DAILY 10 tabs 0RF benzonatate 100 mg PO TID PRN 20 caps 0RF cough Coding Level of Care Code Est Pt Level 3 (58955) Diagnoses Acute bronchitis J20.9
[2023-07-15 11:37] VITALS: BP 140/90; PULSE 68; TEMP 36.4; O2SAT 97
== END 2023-07-15 12:47 | disposition home or self-care (01) ==
PROVIDERS: PCP Internal Medicine; Visit Provider Physician Assistant Medical
DX: J20.9 Acute bronchitis, unspecified (principal)
CPT/HCPCS: 99213

== ENCOUNTER 2023-07-15 11:47 | Outpatient (REF) | payer MEDICARE, MEDICAID, SELFPAY | END 2023-07-15 11:48 | disposition home or self-care (01) | LOC: HO.HMGCX 11:47 | PROVIDERS: PCP Internal Medicine; Visit Provider Physician Assistant Medical | DX: R05.9 Cough, unspecified (principal) | CPT/HCPCS: 71046 ==

== ENCOUNTER 2023-07-25 11:52 | Outpatient (REF) | payer MEDICARE, MEDICAID, SELFPAY | END 2023-07-25 11:53 | disposition home or self-care (01) | LOC: HO.MAMMO 11:52 | PROVIDERS: PCP Internal Medicine; Visit Provider Obstetrics & Gynecology | DX: Z12.31 Encounter for screening mammogram for malignant neoplasm of breast (principal) | CPT/HCPCS: 77063; 77067 ==

== ENCOUNTER → 2023-07-25 12:15 | Outpatient (BNV) | payer MEDICARE, MEDICAID, SELFPAY | PROVIDERS: PCP Internal Medicine; Visit Provider Radiology Diagnostic Radiology | DX: Z12.31 Encounter for screening mammogram for malignant neoplasm of breast (principal) | CPT/HCPCS: 77063; 77067 ==

== ENCOUNTER 2023-08-02 09:36 | Outpatient (AMB) | payer MEDICARE, MEDICAID, SELFPAY ==
--- NOTE | 2023-08-02 09:40 | MHC.OFFVIS ---
Intake Vital Signs 08/02/23 09:44 Height 5 ft 1 in Weight 163 lb BMI 30.8 BP 104/62 Blood Pressure Location Lt brachial Position Sitting Pulse 69 Pulse Source Pulse Oximeter Pulse Oximetry (%) 99 Oxygen Delivery Method Room Air Intake Visit Reasons: cough, sob, lung pain Intake Note: pt is here for sick visit, it started on 07/11 went to pcp and put on prednisone and tesslon and this helped with cough but not with the phelgm that is stuck right in the throat area. Mid back pain on right side constant pain, hurts with deep breathing. Prednisone was 5 days starting at 40mg Allergies aspirin [ASPIRIN] Allergy (Intermediate, Verified 08/02/23 10:10) HIVES, stomach upset codeine [CODEINE] Allergy (Intermediate, Verified 08/02/23 10:10) NAUSEA & VOMITING, drowsy, upset stomach ondansetron [Zofran] Allergy (Intermediate, Verified 08/02/23 10:10) headache Iodinated Contrast Media [IV Contrast Dye] Allergy (Verified 08/02/23 10:10) Unknown Medication List - Last Reconciled 08/02/23 by Ric Paul MD acetaminophen ER (Arthritis Pain Relief (acetaminophen) ER) 1,300 mg (2 x 650 mg) PO Q12H 14 days albuterol sulfate 90 mcg/actuation 1 inh inhalation QID PRN atenolol 25 mg PO DAILY 90 days benzonatate 100 mg PO TID PRN [id number] ala 50-200-25 mg (Biktarvy) 1 tab PO DAILY cyclobenzaprine 10 mg PO BEDTIME PRN diphenhydramine HCl (Banophen) 50 mg PO BEDTIME esomeprazole magnesium 40 mg PO DAILY esomeprazole magnesium (Nexium) 40 mg PO DAILY fluticasone propionate 50 mcg/actuation 1 spray intranasal DAILY gabapentin 200 mg (2 x 100 mg) PO BID hydrocortisone 2.5% 1 appl topical BID PRN hydroxyzine HCl 10 - 20 mg PO BEDTIME metronidazole 0.75% appl topical DAILY sucralfate 1 g PO BEDTIME triamcinolone acetonide 0.1% topical BEDTIME valacyclovir 1,000 mg PO BID Do you need a note to return to daycare/school/sports/work: No HPI cough, sob, lung pain HPI Details THIS 62 YEARS OLD FEMALE, COMES FOR WITH 3 WEEKS COMPLAINT OF DRY COUGH, . CANNOT RAISE ANY MUCUS AND INCREASED PAIN IN THE RIGHT RIBCAGE POSTERIORLY. DENIES ANY FEVER OR CHILLS OR HAVING HAD ANY COLD SYMPTOMS BEFORE THE ABOVE. SHE HAS BEEN TREATED WITH A 5 DAYS COURSE OF PREDNISONE AND Z-AYE WITHOUT MUCH IMPROVEMENT, HER MAIN ISSUE IS CONTINUED COUGH ESPECIALLY IN THE MORNING HOURS. WHEN SHE WAS TAKING BENZONATATE AT TABLETS IT WAS HELPING, BUT. NOW SHE IS OUT OF THAT MEDICINE THE PAIN OVER THE RIGHT RIBCAGE IS CHRONIC CAN FLARES UP EVERY NOW AND. WE HAD THE IMPRESSION OF THIS BEING NEUROPATHIC, SHE HAS BEEN TREATED WITH GABAPENTIN BUT IS NOT HELPING. HER CHEST X-RAY DOES NOT SHOW ANY SIGNIFICANT ABNORMALITY. PREVIOUS CT SCAN HAS ALSO BEEN OK EXCEPT FINE PULMONARY NODULES. SHE IS NONS[facility] Medical History (Updated 08/02/23 @ 10:22 by Ric Paul MD) Cough Tubular adenoma Shoulder pain, right GERD (gastroesophageal reflux disease) Dysplasia of cervix, low grade (TOMA 1) Pulmonary nodules Abnormal EKG Knee pain, left Abnormal Pap smear of cervix Osteoarthritis Anxiety, generalized Chronic GERD HIV positive Surgical History History of esophagogastroduodenoscopy (EGD) History of colonoscopy History of section History of bilateral tubal ligation Family History Father CVD (cardiovascular disease) Mother Arthritis Social History Housing: House Alcohol intake: never Patient Tobacco Use Status: Former Tobacco user Quit Date: 1984 Tobacco use type: Cigarette e-Cigarette/Vaping Use: Never Used service: No Current occupational status: employed and disabled Cognitive needs: No Hearing needs: No Vision needs: Yes Female Reproductive History Menstrual Age of Menarche: 11 Review of Systems Const All systems reviewed & are unremarkable except as noted in HPI and below ENT Reports no additional complaints Card Reports no additional complaints and Denies dyspnea on exertion Resp Denies cough, Reports pain on inspiration (OFF AND ON RT CHEST ), Denies dyspnea on exertion and Denies wheezing GI Reports no additional complaints Reports no additional complaints Musc Reports back pain (MILD ) Neuro Reports no additional complaints Psych Reports no additional complaints Endo Reports no additional complaints Aller/Immun Denies wheezing Physical Exam Vital Signs: Last Vital Signs Pulse 69 08/02/23 09:44 BP 104/62 08/02/23 09:44 Pulse Ox 99 08/02/23 09:44 Oxygen Delivery Method Room Air 08/02/23 09:44 BMI result Body Mass Index 30.8 Const General: healthy appearing, comfortable, no acute distress, alert and awake Orientation/consciousness: patient oriented x3 HEENT Head: Yes normal to inspection General nose exam: No nasal polyps present and No nasal discharge present Face and sinus: Yes sinuses nontender Mouth: oropharynx normal Throat: Yes posterior oropharynx normal Eyes General: appearance normal, both eyes and all related structures Neck Neck: Yes normal visual inspection, Yes no lymphadenopathy, Yes trachea midline and Yes no JVD Thyroid: Thyroid normal Chest Chest palpation & inspection: normal inspection of the chest, normal palpation of entire chest wall and no tenderness Resp Auscultation: clear to auscultation bilaterally, no crackles and no wheezes Cardio Palpation: normal PMI Rate: regular rate Rhythm: regular rhythm Heart sounds: no gallops and no murmurs Peripheral pulses: Peripheral pulses 2+ throughout GI Palpation (GI): Soft to palpation, nontender, No hepatosplenomegaly present and no masses Auscultation: normal bowel sounds Back/Spine/Pelvis Thoracic/Lumbar Spine: thoracic and lumbar spine normal to inspection Skin General skin exam: no rashes or lesions noted Neuro General: patient oriented x3 and no focal motor deficits Cranial nerves: Yes CN's II-XII intact bilaterally Extrem General: Yes normal to inspection, Yes no clubbing, cyanosis or edema, Yes no calf tenderness and No venous stasis dermatitis Psych Speech and movement: Normal speech and movement present Results Reviewed Results Reviewed: CHEST X-RAY ON 07/16 23 REVIEWED AND IS ESSENTIALLY NORMAL. Assessment & Plan Assessment & Plan (1) Chest discomfort: Comment: CHRONIC CHEST PAIN/DISCOMFORT, OVER THE RIGHT POSTERIOR CHEST WALL, IS NONSPECIFIC, MAY BE OF NEUROPATHIC ETIOLOGY . NEED SYMPTOMATIC TREATMENT. MAY TAKE TYLENOL 350 MG OR IBUPROFEN 200 MG 2 TABLETS Q 6 HOURS P.R.N.. APPLY PAIN CONTROL PATCHES DAILY NEEDED PATIENT ADVISED TO CONTINUE FOLLOWING UP WITH PCP. AND SHE CAN COME TO SEE ME NEEDED. Code(s): R07.89 - Other chest pain (2) Lung nodules: Comment: PATIENT HAS PAST HISTORY OF SMOKING, PREVIOUS CT SCANS HAVE SHOWN MULTIPLE SMALL PULMONARY NODULES. PATIENT IS A LOW RISK AT THIS TIME .I EXPLAINED TO HER BUT SHE IS STILL QUITE CONCERNED. FINDINGS OF CHEST CT SCAN ON 04/20/2022 WERE EXPLAINED AND PATIENT WAS REASSURED. I ALSO REVIEWED THE IMAGE OF HER RECENT CHEST X-RAY AND REASSURED HER. Code(s): R91.8 - Other nonspecific abnormal finding of lung field (3) Cough: Comment: SHE IS HAVING A NONSPECIFIC COUGH. COURSE OF PREDNISONE HAS NOT MADE ANY DIFFERENCE. BENZONATATE DID HELP WHICH I WILL PRESCRIBE AGAIN. IT MAY BE PARTLY DUE TO NASAL ALLERGY AND ADVISED TO CONTINUE USING FLONASE 1 SPRAY IN EACH NOSTRIL DAILY. Code(s): R05.9 - Cough, unspecified Medications: New benzonatate 150 mg PO BID PRN 60 caps 2RF cough 30 days Coding Level of Care Code Est Pt Level 3 (81113) Diagnoses Chest discomfort R07.89 Lung nodules R91.8 Cough R05.9
[2023-08-02 09:44] VITALS: BP 104/62; PULSE 69; O2SAT 99; BMI 30.8
== END 2023-08-02 10:10 | disposition home or self-care (01) ==
PROVIDERS: PCP Internal Medicine; Visit Provider Internal Medicine
DX: R07.89 Other chest pain (principal); R91.8 Other nonspecific abnormal finding of lung field; R05.9 Cough, unspecified
CPT/HCPCS: 99213

== ENCOUNTER → 2023-08-02 09:36 | Outpatient (BNVA) | payer MEDICARE, MEDICAID, SELFPAY | PROVIDERS: PCP Internal Medicine; Visit Provider Internal Medicine | DX: R91.8 Other nonspecific abnormal finding of lung field (principal); R07.89 Other chest pain; R05.9 Cough, unspecified | CPT/HCPCS: 99212 ==

== ENCOUNTER 2023-09-26 09:48 | Outpatient (REF) | payer MEDICARE, MEDICAID, SELFPAY ==
--- NOTE | ~2023-09-26 | FL_ITS ---
EXAMINATION: XR FLUOROSCOPY UPPER GI WITH AIR CLINICAL INFORMATION: Unspecified dysphasia COMPARISON: None recent nor contributary. TECHNIQUE: Fluoroscopic air contrast upper GI examination was performed utilizing standard techniques with thin and thick barium and effervescent granules. Numerous spot images were obtained. Several fluoroscopic image hold cine sequences were also obtained. FINDINGS: Lateral cine images of the oropharynx and hypopharynx demonstrate normal swallow mechanism with normal epiglottic inversion and soft palate elevation. No tracheal penetration, glottic or subglottic aspiration identified. No nasopharyngeal reflux present. Hypopharyngeal structures appear normal without evidence of mass or diverticulum. There was no significant cricopharyngeal achalasia. Dual and single contrast images of the esophagus demonstrate normal caliber, contour, and mucosal pattern. No evidence of stricture, mass, or ulcerations identified. Esophageal peristalsis was normal. No evidence of hiatus hernia identified. No significant gastroesophageal reflux was seen during the course of the examination and on reflux views. Dual contrast and single contrast images of the stomach demonstrated borderline thickening of the gastric rugae. Otherwise, mucosal surfaces appear normal. Contrast freely passed into the gastric antrum and duodenal bulb without delay. Single and air-contrast images of the duodenal bulb demonstrate no abnormality. The duodenal sweep has a normal appearance, course, and mucosal fold appearance. The imaged proximal jejunum has a normal fold pattern and caliber. Cholecystectomy clips are noted. FLUOROSCOPY TIME: 3 minutes 19 seconds Number of Spot Images: 7 Number of cines obtained: 10 DOSE AREA PRODUCT: 195.9 cGy-cm2 (centigray-centimeter squared) FL/FL barium swallow IMPRESSION: Borderline thickening of the gastric rugae and possibly artifactual. Otherwise normal examination.
== END 2023-09-26 09:49 | disposition home or self-care (01) ==
LOC: HO.XRAY 09:48
PROVIDERS: PCP Internal Medicine; Visit Provider Nurse Practitioner Family
DX: R13.10 Dysphagia, unspecified (principal)
CPT/HCPCS: 74220

== ENCOUNTER → 2023-09-26 09:50 | Outpatient (BNV) | payer MEDICARE, MEDICAID, SELFPAY | PROVIDERS: PCP Internal Medicine; Visit Provider Radiology Diagnostic Radiology | DX: R13.10 Dysphagia, unspecified (principal) | CPT/HCPCS: 74246 ==

== ENCOUNTER 2024-01-03 13:41 | Outpatient (AMB) | payer MEDICARE, SELFPAY ==
--- NOTE | 2024-01-03 13:43 | MHC.PC.OV ---
Vital Signs 01/03/24 13:44 Height 5 ft 1 in Weight 166 lb BMI 31.4 BP 120/68 Blood Pressure Location Rt brachial Position Sitting Pulse 78 Pulse Source Pulse Oximeter Pulse Oximetry (%) 98 Oxygen Delivery Method Room Air Intake Visit Reasons: 6 Month Follow Up~ Allergies aspirin [ASPIRIN] Allergy (Intermediate, Verified 01/03/24 13:45) HIVES, stomach upset codeine [CODEINE] Allergy (Intermediate, Verified 01/03/24 13:45) NAUSEA & VOMITING, drowsy, upset stomach ondansetron [Zofran] Allergy (Intermediate, Verified 01/03/24 13:45) headache Iodinated Contrast Media [IV Contrast Dye] Allergy (Verified 01/03/24 13:45) Unknown Medication List - Last Reviewed 01/03/24 by Billy Treviño MA albuterol sulfate 90 mcg/actuation 1 inh inhalation QID PRN atenolol 25 mg PO DAILY 90 days ambwgiktl-yriznkzn-icqdzco ala 50-200-25 mg (Biktarvy) 1 tab PO DAILY cyclobenzaprine 10 mg PO BEDTIME PRN diphenhydramine HCl (Banophen) 50 mg PO BEDTIME esomeprazole magnesium 40 mg PO DAILY fluticasone propionate 50 mcg/actuation 1 spray intranasal DAILY gabapentin 200 mg (2 x 100 mg) PO BID hydrocortisone 2.5% 1 appl topical BID PRN hydroxyzine HCl 10 - 20 mg PO BEDTIME metronidazole 0.75% appl topical DAILY triamcinolone acetonide 0.1% topical BEDTIME valacyclovir 1,000 mg PO BID Tobacco use date assessed: 01/03/24 Dental Screening Dental Screen Date: 01/03/24 Did you have a dental visit in the last 12 months?: No Did you have a dental problem in the last 6 months where you did not have access to dental care?: No Was dental information given to patient?: Patient has dentist HPI 6 Month Follow Up~ HPI Details Patient is 63-year-old female came in today for her regular follow-up visit on blood pressure.? Patient has lost mother recently, she is grieving Also tells me that she has been having back pain with a past few days She was given muscle relaxer in the past which did help her, I have sent the refill She has appointment in July for physical examination Labs are needed today Blood pressure is stable patient is on atenolol 25 mg daily.?? Chronic GERD stable with pantoprazole 40 mg through Gastroenterology Chronic nasal congestion and responded to Flonase nasal spray that patient is taking? BMI elevated need to lose weight. HIV management through infectious disease Last set of lab was in June of last year new set of lab order placed Her liver enzymes were slightly elevated we will recheck [facility] Medical History Cough Tubular adenoma Shoulder pain, right GERD (gastroesophageal reflux disease) Dysplasia of cervix, low grade (TOMA 1) Pulmonary nodules Abnormal EKG Knee pain, left Abnormal Pap smear of cervix Osteoarthritis Anxiety, generalized Chronic GERD HIV positive Surgical History History of esophagogastroduodenoscopy (EGD) History of colonoscopy History of section History of bilateral tubal ligation Family History Father CVD (cardiovascular disease) Mother Arthritis Social History Housing: House Alcohol intake: never Patient Tobacco Use Status: Former Tobacco user Quit Date: 1984 Tobacco use type: Cigarette e-Cigarette/Vaping Use: Never Used service: No Current occupational status: employed and disabled Cognitive needs: No Hearing needs: No Vision needs: Yes Female Reproductive History Menstrual Age of Menarche: 11 Questionnaire Thrive Questionnaire Date Thrive assessed: 06/16/22 IAN-7 AMB Questionnaire IAN-7 Date IAN - 7 assessed: 06/16/22 Source: Developed by Drs. Miguel Ángel Toth, Georgia Ferrari, Ryan Funez and colleagues, with an educational bart from [employer]. Review of Systems Const Denies chills and Denies fever(s) ENT Denies epistaxis and Denies nasal discharge Card Denies chest pain Resp Denies chest congestion, Denies cough and Denies hemoptysis GI Denies diarrhea and Denies nausea Skin/Breast Denies rash Neuro Reports no additional complaints Psych Reports no additional complaints Endo Reports no additional complaints Physical exam (Primary Care) Vital Signs: Last Vital Signs Pulse 78 01/03/24 13:44 BP 120/68 01/03/24 13:44 Pulse Ox 98 03/26/24 13:44 Oxygen Delivery Method Room Air 01/03/24 13:44 BMI result Body Mass Index 31.4 Tobacco/Smoking Status: Tobacco use Status Tobacco use date assessed 01/03/24 01/03/24 13:46 Patient Tobacco Use Status Former Tobacco user 01/03/24 13:43 Tobacco use type Cigarette 01/03/24 13:43 e-Cigarette/Vaping Use Never Used 01/03/24 13:43 Thrive Assessment: Date of Thrive Assessment Date Thrive assessed 06/16/22 01/03/24 13:43 Const General: cooperative, comfortable and no acute distress Orientation/consciousness: patient oriented x3 HENMT Head: Yes normocephalic Eyes General: appearance normal, both eyes and all related structures Neck Neck: Yes supple Resp Effort & Inspection: normal respiratory effort, no cough and no stridor Cardio Rhythm: regular rhythm Heart sounds: S1 normal heart sound present and S2 normal heart sound present Skin General skin exam: turgor normal Neuro General: patient oriented x3, tone normal and moves all extremities Extrem Right lower extremity: no edema Left lower extremity: no edema Assessment and Plan Assessment & Plan (1) Hypertension, essential: Code(s): I10 - Essential (primary) hypertension (2) Chronic lower back pain: Code(s): M54.50 - Low back pain, unspecified; G89.29 - Other chronic pain Qualifiers: Back pain laterality: bilateral Sciatica presence: without sciatica Qualified Code(s): M54.50 - Low back pain, unspecified; G89.29 - Other chronic pain (3) GERD (gastroesophageal reflux disease): Code(s): K21.9 - Gastro-esophageal reflux disease without esophagitis Qualifiers: Esophagitis presence: without esophagitis Qualified Code(s): K21.9 - Gastro-esophageal reflux disease without esophagitis (4) Obesity due to excess calories: Code(s): E66.09 - Other obesity due to excess calories Qualifiers: Body mass index: BMI 31.0-31.9 Obesity classification: adult class 1 (BMI 30 - 34.9) Serious obesity comorbidity presence: with serious comorbidity Qualified Code(s): E66.09 - Other obesity due to excess calories; Z68.31 - Body mass index [BMI] 31.0-31.9, adult (5) HIV positive: Code(s): Z21 - Asymptomatic human immunodeficiency virus [HIV] infection status (6) Neutropenia: Code(s): D70.9 - Neutropenia, unspecified Qualifiers: Neutropenia type: unspecified Qualified Code(s): D70.9 - Neutropenia, unspecified (7) Nasal congestion: Code(s): R09.81 - Nasal congestion (8) LFT elevation: Code(s): R79.89 - Other specified abnormal findings of blood chemistry Plan Patient is 63-year-old female came in today for her regular follow-up visit on blood pressure.? Patient has lost mother recently, she is grieving Also tells me that she has been having back pain with a past few days She was given muscle relaxer in the past which did help her, I have sent the refill She has appointment in July for physical examination Labs are needed today Blood pressure is stable patient is on atenolol 25 mg daily.?? Chronic GERD stable with pantoprazole 40 mg through Gastroenterology Chronic nasal congestion and responded to Flonase nasal spray that patient is taking? BMI elevated need to lose weight. HIV management through infectious disease Last set of lab was in June of last year new set of lab order placed Her liver enzymes were slightly elevated we will recheck Orders: Orders Complete Blood Count Auto Diff Today D70.9 - Neutropenia, unspecified, E66.09 - Other obesity due to excess calories, I10 - Essential (primary) hypertension, K21.9 - Gastro-esophageal reflux disease without esophagitis, R09.81 - Nasal congestion, Z21 - Asymptomatic human immunodeficiency virus [HIV] infection status Vitamin D 25-OH (D2 and D3) Today D70.9 - Neutropenia, unspecified, E66.09 - Other obesity due to excess calories, I10 - Essential (primary) hypertension, K21.9 - Gastro-esophageal reflux disease without esophagitis, R09.81 - Nasal congestion, Z21 - Asymptomatic human immunodeficiency virus [HIV] infection status Comprehensive Met. Panel Today D70.9 - Neutropenia, unspecified, E66.09 - Other obesity due to excess calories, I10 - Essential (primary) hypertension, K21.9 - Gastro-esophageal reflux disease without esophagitis, R09.81 - Nasal congestion, Z21 - Asymptomatic human immunodeficiency virus [HIV] infection status LDL Cholesterol Direct Today D70.9 - Neutropenia, unspecified, E66.09 - Other obesity due to excess calories, I10 - Essential (primary) hypertension, K21.9 - Gastro-esophageal reflux disease without esophagitis, R09.81 - Nasal congestion, Z21 - Asymptomatic human immunodeficiency virus [HIV] infection status Medications: Refilled atenolol 25 mg PO DAILY 90 tabs 1RF 90 days cyclobenzaprine 10 mg PO BEDTIME PRN 90 tabs 0RF muscle spasm albuterol sulfate 90 mcg/actuation 1 inh inhalation QID PRN 8.5 grams 0RF shortness of breath or wheezing Discontinued benzonatate Discontinued Reason: Patient Completed Course 100 mg PO TID PRN 20 caps 0RF cough esomeprazole magnesium (Nexium) Discontinued Reason: Duplicate 40 mg PO DAILY 30 caps 5RF K21.9 - Gastro-esophageal reflux disease without esophagitis benzonatate Discontinued Reason: Order 150 mg PO BID 30 days PRN 60 caps 2RF cough Coding Level of Care Code Est Pt Level 4 (73073) Diagnoses Hypertension, essential I10 Chronic bilateral low back pain without sciatica M54.50; G89.29 Back pain laterality: bilateral Sciatica presence: without sciatica Gastroesophageal reflux disease without esophagitis K21.9 Esophagitis presence: without esophagitis Class 1 obesity due to excess calories with serious comorbidity and body mass index (BMI) of 31.0 to 31.9 in adult E66.09; Z68.31 Body mass index: BMI 31.0-31.9 Obesity classification: adult class 1 (BMI 30 - 34.9) Serious obesity comorbidity presence: with serious comorbidity HIV positive Z21 Neutropenia, unspecified type D70.9 Neutropenia type: unspecified Nasal congestion R09.81 LFT elevation R79.89
[2024-01-03 13:44] VITALS: BP 120/68; PULSE 78; O2SAT 98; BMI 31.4
== END 2024-01-03 14:59 | disposition home or self-care (01) ==
PROVIDERS: PCP Internal Medicine; Visit Provider Internal Medicine
DX: Z21 Asymptomatic human immunodeficiency virus [HIV] infection status (principal); D70.9 Neutropenia, unspecified; I10 Essential (primary) hypertension; G89.29 Other chronic pain; M54.50 Low back pain, unspecified; K21.9 Gastro-esophageal reflux disease without esophagitis; E66.09 Other obesity due to excess calories; Z68.31 Body mass index [BMI] 31.0-31.9, adult; R09.81 Nasal congestion; R79.89 Other specified abnormal findings of blood chemistry
CPT/HCPCS: 99214

== ENCOUNTER 2024-01-03 14:03 | Outpatient (REF) | payer MEDICARE, MEDICAID, SELFPAY ==
[2024-01-03 16:10] LABS: MANUAL DIFF FLAG NO
[2024-01-03 16:18] LABS: Basophils Percent Auto 0.8 % (0-2); Eosinophils Absolute Auto 0.1 X10*3/uL (0.0-0.4); Eosinophils Percent Auto 1.7 % (0-4); Hematocrit 37.4 % (37.0-47.0); Hemoglobin 12.1 g/dl (12.0-16.0); Imm Gran Abs Auto 0.01 X10*3/uL (0.00-0.03); Imm Gran Pct Auto 0.3 % (0.0-0.4); Lymphocytes Absolute Auto 0.8 X10*3/uL (1.2-4.9); Lymphocytes Percent Auto 22.5 % (20-40); Mean Corpuscular HGB Conc 32.4 g/dl (31.0-35.0); Mean Corpuscular Hemoglobin 29.5 pg (27.0-33.0); Mean Corpuscular Volume 91.2 fL (80.0-98.0); Monocytes Absolute Auto 0.4 X10*3/uL (0.1-1.2); Monocytes Percent Auto 11.3 % (2-11); Neutrophils Absolute Auto 2.3 x10*3/uL (2.0-8.3); Neutrophils Percent Auto 63.4 % (45-73); Platelet Count 286 X10*3/uL (160-400); Red Cell Distribution Width 12.3 % (11.0-16.0); White Blood Count 3.6 X10*3/uL (4.8-10.8)
[2024-01-03 16:47] LABS: Alanine Aminotransferase 30 U/L (0-31); Albumin Level 4.1 g/dL (3.5-5.0); Alkaline Phosphatase 66 U/L (39-117); Anion Gap 13 (12-20); Aspartate Amino Transferase 33 U/L (5-31); Bilirubin Total 0.4 mg/dL (0.0-1.0); Blood Urea Nitrogen 21 mg/dL (9-16); Calcium 9.1 mg/dL (8.4-10.2); Carbon Dioxide 27 mmol/L (22-29); Chloride 105 mmol/L (96-108); Estimated Glomerular Filt Rate > 60; Glucose Random 95 mg/dL (60-115); Potassium 3.8 mmol/L (3.3-5.1); Sodium 141 mmol/L (135-145); Total Protein 7.2 g/dL (6.5-8.0)
[2024-01-04 19:28] LABS: LDL Cholesterol Direct 88 mg/dL (<100)
[2024-01-07 15:39] LABS: Vitamin D 25-OH, D2 <4 ng/mL; Vitamin D 25-OH, D3 18 ng/mL; Vitamin D 25-OH, Total 18 ng/mL (30-100)
== END 2024-01-03 14:04 | disposition home or self-care (01) ==
LOC: HO.HMGCLDS 14:03
PROVIDERS: PCP Internal Medicine; Visit Provider Internal Medicine
DX: I10 Essential (primary) hypertension (principal); R09.81 Nasal congestion; E66.09 Other obesity due to excess calories; K21.9 Gastro-esophageal reflux disease without esophagitis; Z21 Asymptomatic human immunodeficiency virus [HIV] infection status; D70.9 Neutropenia, unspecified
CPT/HCPCS: 36415; 80053; 82306; 83721; 85025

== ENCOUNTER 2024-01-18 12:40 | Outpatient (AMB) | payer MEDICARE, SELFPAY ==
[2024-01-18 12:37] VITALS: BP 124/78; PULSE 77; TEMP 36.2; O2SAT 97; BMI 30.8
--- NOTE | 2024-01-18 12:37 | AM.OFFWIN_ITS ---
Intake Vital Signs 01/18/24 12:37 Height 5 ft 1 in Weight 163 lb 4 oz BMI 30.8 BP 124/78 Blood Pressure Location Rt brachial Position Sitting Pulse 77 Pulse Source Pulse Oximeter Temp 97.2 F Temp Source Temporal Artery Scan Pulse Oximetry (%) 97 Oxygen Delivery Method Room Air Intake Visit Reasons: EP back pain RT side Intake Note: Pt presents to the office today for c/o right sided lower back pain that started 2 weeks ago with no known injury. Patient Tobacco Use Status: Former Tobacco user Quit Date: 1984 Allergies aspirin [ASPIRIN] Allergy (Intermediate, Verified 01/18/24 12:37) HIVES, stomach upset codeine [CODEINE] Allergy (Intermediate, Verified 01/18/24 12:37) NAUSEA & VOMITING, drowsy, upset stomach ondansetron [Zofran] Allergy (Intermediate, Verified 01/18/24 12:37) headache Iodinated Contrast Media [IV Contrast Dye] Allergy (Verified 01/18/24 12:37) Unknown HPI HPI Comments History of Present Illness Details 63 y/o female patient who presents to [place] in clinic with c/o right sided lower back pain x 2 weeks. Denies any recent trauma or injury. Denies numbness or tingling. Denies urinary or bowel problems. [facility] Medical History Cough Tubular adenoma Shoulder pain, right GERD (gastroesophageal reflux disease) Dysplasia of cervix, low grade (TOMA 1) Pulmonary nodules Abnormal EKG Knee pain, left Abnormal Pap smear of cervix Osteoarthritis Anxiety, generalized Chronic GERD HIV positive Surgical History History of esophagogastroduodenoscopy (EGD) History of colonoscopy History of section History of bilateral tubal ligation Family History Father CVD (cardiovascular disease) Mother Arthritis Social History Housing: House Alcohol intake: never Patient Tobacco Use Status: Former Tobacco user Quit Date: 1984 Tobacco use type: Cigarette e-Cigarette/Vaping Use: Never Used service: No Current occupational status: employed and disabled Cognitive needs: No Hearing needs: No Vision needs: Yes Female Reproductive History Menstrual Age of Menarche: 11 Review of Systems Const All systems reviewed & are unremarkable except as noted in HPI and below Physical Exam Vital Signs: Last Vital Signs Temp 97.2 F 01/18/24 12:37 Pulse 77 01/18/24 12:37 BP 124/78 01/18/24 12:37 Pulse Ox 97 01/18/24 12:37 Oxygen Delivery Method Room Air 01/18/24 12:37 BMI result Body Mass Index 30.8 Const General: no acute distress; No comfortable Nutritional Appearance: overweight Orientation/consciousness: patient oriented x3 General: Yes CVA tenderness (Right side) Back/Spine/Pelvis Back: CVA tenderness (Right side) and No erythema Thoracic/Lumbar Spine: thoracic and lumbar spine normal to inspection, pain with thoraco-lumbar ROM, thoraco-lumbar spasm and lumbar spinal tenderness Neuro General: patient oriented x3, gait normal and moves all extremities Psych Speech and movement: Normal speech and movement present Results AMB Urinalysis, Automated UA Leukoctes 0 Soheila/uL Last Edit by Tesha Cha CMA on 01/18/24 13:11 UA Nitrite Negative Last Edit by Tesha Cha CMA on 01/18/24 13:11 UA Urobilinogen 0.2 mg/dL Last Edit by Tesha Cha CMA on 01/18/24 13:11 UA Protein 0 mg/dL Last Edit by Tesha Cha CMA on 01/18/24 13:11 UA pH 5.5 Last Edit by Tesha Cha CMA on 01/18/24 13:11 UA Blood 25 James/uL Last Edit by Tesha Cha CMA on 01/18/24 13:11 UA Specific [place] 1.020 Last Edit by Tesha Cha CMA on 01/18/24 13:11 UA Ketone Negative Last Edit by Tesha Cha CMA on 01/18/24 13:11 UA Bilirubin 0 mg/dL Last Edit by Tesha Cha CMA on 01/18/24 13:11 UA Glucose 0 mg/dL Last Edit by Tesha Cha CMA on 01/18/24 13:11 Assessment & Plan Assessment & Plan (1) Right-sided low back pain without sciatica: Code(s): M54.50 - Low back pain, unspecified Qualifiers: Chronicity: acute Qualified Code(s): M54.50 - Low back pain, unspecified Plan: - U/A POCT negative - Take medications as prescribed. - F/U with PCP - Stop taking Flexeril Medications: New lidocaine 4% 1 patch topical BID PRN 30 ea 0RF back pain M54.50 - Low back pain, unspecified metaxalone 800 mg PO TID 20 tabs 0RF back pain M54.50 - Low back pain, unspecified Discontinued cyclobenzaprine Discontinued Reason: No Longer Medically Relevant 10 mg PO BEDTIME PRN 30 tabs 0RF muscle spasm Coding Level of Care Code Est Pt Level 3 (07411) Diagnoses Acute right-sided low back pain without sciatica M54.50 Chronicity: acute Time Spent (min) 15
== END 2024-01-18 13:21 | disposition home or self-care (01) ==
PROVIDERS: PCP Internal Medicine; Visit Provider Nurse Practitioner Family
DX: M54.50 Low back pain, unspecified (principal)
CPT/HCPCS: 81003; 99213

== ENCOUNTER 2024-02-15 13:12 | Outpatient (AMB) | payer MEDICARE, MEDICAID, SELFPAY ==
--- NOTE | 2024-02-15 13:16 | MHC.OFFVIS ---
Vital Signs 02/15/24 13:18 Height 5 ft 1 in Weight 158 lb 11.725 oz BMI 30.0 BP 140/69 H Blood Pressure Location Lt brachial Position Sitting Pulse 80 Intake Visit Reasons: Follow up Barium Enema Intake Note: Rhina presents in the office as a follow up BA enema. CC: No concerns at this time. Sandwich Board Carrier Required: No Allergies aspirin [ASPIRIN] Allergy (Intermediate, Verified 02/24/24 11:50) HIVES, stomach upset codeine [CODEINE] Allergy (Intermediate, Verified 02/24/24 11:50) NAUSEA & VOMITING, drowsy, upset stomach ondansetron [Zofran] Allergy (Intermediate, Verified 02/24/24 11:50) headache Iodinated Contrast Media [IV Contrast Dye] Allergy (Verified 02/24/24 11:50) Unknown HPI HPI Follow up Barium Enema: Details: LAST VISIT: GERD (gastroesophageal reflux disease) Will stop pantoprazole and start patient on Nexium. Will add sucralfate at bedtime. Patient was encouraged to avoid dietary triggers and late night snacking. Staying upright for minimum 3 hours after meals discussed with patient. Avoid NSAIDs Dysphagia Patient reports occasional dysphagia mostly solid foods. Patient reports just recently after she started taking meloxicam, she was taking it for 4 days then patient stopped. Will send her for barium swallow. Swallow precautions discussed with patient. Patient has an appointment with me on September 06 will see her then, sooner on as needed basis. Patient is agreeable to this plan and verbalizes understanding all instructions. She was given the opportunity to ask questions and all questions answered. ? Thank you for allowing me to participate in her care Plan Orders Orders FL barium swallow Today R13.10 Medications New esomeprazole magnesium (Nexium) 40 mg PO DAILY 30 caps 5RF K21.9 sucralfate 1 g PO BEDTIME 30 tabs 3RF R19.7 Discontinued pantoprazole Discontinued Reason: Doctor's Order 40 mg PO DAILY 90 tabs 2RF TODAY'S VISIT: Patient is here today for follow-up and to discuss barium swallow results. Patient had appointment with me end of August, however that was rescheduled as patient had not completed her testing. Patient started taking Nexium and states that she was feeling better. Patient no longer is using sucralfate at night time. No acid reflux seen on barium swallow. Possible mild ulceration in duodenum. Patient had upper endoscopy in 2020, normal duodenal bulb and descending duodenum seen. Patient reports that she has been feeling well otherwise. Denies dyspepsia, dysphagia or odynophagia. Denies any melena, hematochezia, unintentional weight loss or ribbon like stools. [facility] Medical History Cough Tubular adenoma Shoulder pain, right GERD (gastroesophageal reflux disease) Dysplasia of cervix, low grade (TOMA 1) Pulmonary nodules Abnormal EKG Knee pain, left Abnormal Pap smear of cervix Osteoarthritis Anxiety, generalized Chronic GERD HIV positive Surgical History History of esophagogastroduodenoscopy (EGD) History of colonoscopy History of section History of bilateral tubal ligation Family History Father CVD (cardiovascular disease) Mother Arthritis Social History Housing: House Alcohol intake: never Patient Tobacco Use Status: Former Tobacco user Quit Date: 1984 Tobacco use type: Cigarette e-Cigarette/Vaping Use: Never Used service: No Current occupational status: employed and disabled Cognitive needs: No Hearing needs: No Vision needs: Yes Female Reproductive History Menstrual Age of Menarche: 11 Review of Systems Const Denies weight gain and Denies weight loss ENT Reports no additional complaints, Denies dysphagia and Denies odynophagia Card Reports no additional complaints Resp Reports no additional complaints GI Denies abdominal pain, Denies belching, Denies melena, Denies bloating, Denies change in bowel habits, Denies dysphagia, Denies excessive flatus, Denies dyspepsia, Denies heartburn, Denies diarrhea, Denies loose stools, Denies nausea, Denies odynophagia and Denies vomiting Musc Reports no additional complaints Neuro Reports no additional complaints Psych Reports no additional complaints Endo Reports no additional complaints Physical Exam Vital Signs: Last Vital Signs Pulse 80 02/15/24 13:18 BP 140/69 H 02/15/24 13:18 BMI result Body Mass Index 30.0 Const General: healthy appearing and no acute distress Nutritional Appearance: obese Orientation/consciousness: patient oriented x3 Resp Effort & Inspection: normal respiratory effort, able to speak in complete sentences, no tracheal deviation and symmetric chest movement Auscultation: clear to auscultation bilaterally Cardio Rate: regular rate Heart sounds: S1 normal heart sound present and S2 normal heart sound present GI Inspection: Yes normal to inspection, No distended and Yes obesity Palpation (GI): Soft to palpation, not firm, nontender and No hepatosplenomegaly present Auscultation: normal bowel sounds General: Yes no CVA tenderness Back/Spine/Pelvis Back: no CVA tenderness Skin General skin exam: elasticity normal, turgor normal and dry skin Neuro General: patient oriented x3 Psych Appearance: grossly normal Mental Status: mental status grossly normal Results Reviewed Results Reviewed: Laboratory Tests 07/08/23 01/03/24 09:13 14:07 AST 40 H 33 H ALT 45 H 30 BARIUM SWALLOW 10/06/2023 FINDINGS: Lateral cine images of the oropharynx and hypopharynx demonstrate normal swallow mechanism with normal epiglottic inversion and soft palate elevation. No tracheal penetration, glottic or subglottic aspiration identified. No nasopharyngeal reflux present. Hypopharyngeal structures appear normal without evidence of mass or diverticulum. There was no significant cricopharyngeal achalasia. Dual and single contrast images of the esophagus demonstrate normal caliber, contour, and mucosal pattern. No evidence of stricture, mass, or ulcerations identified. Esophageal peristalsis was normal. No evidence of hiatus hernia identified. No significant gastroesophageal reflux was seen during the course of the examination and on reflux views. Dual contrast and single contrast images of the stomach demonstrated borderline thickening of the gastric rugae. Otherwise, mucosal surfaces appear normal. Contrast freely passed into the gastric antrum and duodenal bulb without delay. Single and air-contrast images of the duodenal bulb demonstrate no abnormality. The duodenal sweep has a normal appearance, course, and mucosal fold appearance. The imaged proximal jejunum has a normal fold pattern and caliber. Cholecystectomy clips are noted. FLUOROSCOPY TIME: 3 minutes 19 seconds Number of Spot Images: 7 Number of cines obtained: 10 DOSE AREA PRODUCT: 195.9 cGy-cm2 (centigray-centimeter squared) FL/FL barium swallow IMPRESSION: Borderline thickening of the gastric rugae and possibly artifactual. Otherwise normal examination. Assessment & Plan Assessment & Plan (1) GERD (gastroesophageal reflux disease): Code(s): K21.9 - Gastro-esophageal reflux disease without esophagitis Category: Medical Qualifiers: Esophagitis presence: without esophagitis Qualified Code(s): K21.9 - Gastro-esophageal reflux disease without esophagitis (2) Dysphagia: Code(s): R13.10 - Dysphagia, unspecified Qualifiers: Dysphagia type: other dysphagia Qualified Code(s): R13.19 - Other dysphagia Plan Patient no longer reports dysphagia. Nexbutch helpfull. Will send her script. Continue avoiding dietary triggers and late night snacking. Staying upright for minimum 3 hours after meals discussed with patient. Patient will follow-up in the office in 3 months, sooner on as needed basis. She is agreeable to this plan and verbalizes understanding of instructions. She was given the opportunity to ask questions and all questions answered. Thank you for allowing me to participate in her care Medications: New esomeprazole magnesium 40 mg PO DAILY 90 caps 2RF Coding Level of Care Code Est Pt Level 4 (55368) Diagnoses Gastroesophageal reflux disease without esophagitis K21.9 Esophagitis presence: without esophagitis Other dysphagia R13.19 Dysphagia type: other dysphagia Time Spent (min) 35 Comment 20 minutes spent with patient and additional 15 minutes spent reviewing her records
[2024-02-15 13:18] VITALS: BP 140/69; PULSE 80
== END 2024-02-15 13:41 | disposition home or self-care (01) ==
PROVIDERS: PCP Internal Medicine; Visit Provider Nurse Practitioner Family
DX: K21.9 Gastro-esophageal reflux disease without esophagitis (principal); R13.19 Other dysphagia
CPT/HCPCS: 99214

== ENCOUNTER → 2024-02-15 13:12 | Outpatient (BNVA) | payer MEDICARE, MEDICAID, SELFPAY | PROVIDERS: PCP Internal Medicine; Visit Provider Nurse Practitioner Family | DX: K21.9 Gastro-esophageal reflux disease without esophagitis (principal); R13.19 Other dysphagia | CPT/HCPCS: 99212 ==

== ENCOUNTER 2024-02-20 11:56 | Outpatient (AMB) | payer MEDICARE, MEDICAID, SELFPAY ==
[2024-02-20 13:10] VITALS: BP 122/70; PULSE 80; TEMP 37.8; O2SAT 98; BMI 29.9
--- NOTE | 2024-02-20 13:10 | AM.OFFWIN_ITS ---
Intake Vital Signs 02/20/24 13:10 Height 5 ft 1 in Weight 158 lb BMI 29.9 BP 122/70 Blood Pressure Location Rt brachial Position Sitting Pulse 80 Pulse Source Pulse Oximeter Temp 100.0 F Temp Source Temporal Artery Scan Pulse Oximetry (%) 98 Intake Visit Reasons: EP bad cough , body ache , nausea Intake Note: pt is here for cough and body ache and fever and states shes been using the bathroom without having to push Patient Tobacco Use Status: Former Tobacco user Quit Date: 1984 Allergies aspirin [ASPIRIN] Allergy (Intermediate, Verified 02/20/24 13:12) HIVES, stomach upset codeine [CODEINE] Allergy (Intermediate, Verified 02/20/24 13:12) NAUSEA & VOMITING, drowsy, upset stomach ondansetron [Zofran] Allergy (Intermediate, Verified 02/20/24 13:12) headache Iodinated Contrast Media [IV Contrast Dye] Allergy (Verified 02/20/24 13:12) Unknown Do you need a note to return to daycare/school/sports/work: No HPI HPI Comments History of Present Illness Details Patient presents to the walk-in today for sick visit Endorses 5 days of cough, sinus congestion, body aches Denies nausea, vomiting, diarrhea, shortness of breath, weakness, dizziness, syncope, chest pain homesick with the same Has been using her inhalers without improvement of her cough PFSH Medical History Cough Tubular adenoma Shoulder pain, right GERD (gastroesophageal reflux disease) Dysplasia of cervix, low grade (TOMA 1) Pulmonary nodules Abnormal EKG Knee pain, left Abnormal Pap smear of cervix Osteoarthritis Anxiety, generalized Chronic GERD HIV positive Surgical History History of esophagogastroduodenoscopy (EGD) History of colonoscopy History of section History of bilateral tubal ligation Family History Father CVD (cardiovascular disease) Mother Arthritis Social History Housing: House Alcohol intake: never Patient Tobacco Use Status: Former Tobacco user Quit Date: 1984 Tobacco use type: Cigarette e-Cigarette/Vaping Use: Never Used service: No Current occupational status: employed and disabled Cognitive needs: No Hearing needs: No Vision needs: Yes Female Reproductive History Menstrual Age of Menarche: 11 Review of Systems Const All systems reviewed & are unremarkable except as noted in HPI and below Physical Exam Vital Signs: Last Vital Signs Temp 100.0 F 02/20/24 13:10 Pulse 80 02/20/24 13:10 BP 122/70 02/20/24 13:10 Pulse Ox 98 02/20/24 13:10 BMI result Body Mass Index 29.9 General: awake, alert, oriented. Answers questions appropriately. Fully engaged in examination. Skin: warm, dry, intact HEENT: TMs intact bilaterally, no redness. Posterior pharynx without erythema or exudate. Sclera without icterus or injection. Cardiac: External chest normal in appearance. Respiratory: +cough. LSCTAB. Abdomen: without gross distension. Neurological: Oriented to person, place, time and situation. Thought process intact. Psychiatric: Appropriate mood and affect. Good judgment and insight. Results AMB Urinalysis, Automated UA Leukoctes 0 Soheila/uL Last Edit by Naseem Robles CMA on 02/20/24 13:36 UA Nitrite Negative Last Edit by Naseem Robles CMA on 02/20/24 13:36 UA Urobilinogen 0.2 mg/dL Last Edit by Naseem Robles CMA on 02/20/24 13 :36 UA Protein 0 mg/dL Last Edit by Naseem Robles CMA on 02/20/24 13:36 UA pH 8.5 Last Edit by Naseem Robles CMA on 02/20/24 13:36 UA Blood 10 James/uL Last Edit by Naseem Robles CMA on 02/20/24 13:36 UA Specific [place] 1.010 Last Edit by Naseem Robles CMA on 02/20/24 13:36 UA Ketone Negative Last Edit by Naseem Robles CMA on 02/20/24 13:36 UA Bilirubin 0 mg/dL Last Edit by Naseem Robles CMA on 02/20/24 13:36 UA Glucose 0 mg/dL Last Edit by Naseem Robles CMA on 02/20/24 13:36 Results Reviewed Results Reviewed: Laboratory Last Values Urine pH (Auto) 8.5 02/20/24 13:36 Specific [place] (Auto) 1.010 02/20/24 13:36 Urine Protein (Auto) 0 mg/dL 02/20/24 13:36 Glucose (UA)(Auto) 0 mg/dL 02/20/24 13:36 Urine Ketones (Auto) Negative 02/20/24 13:36 Urine Blood (Auto) 10 James/uL 02/20/24 13:36 Urine Nitrite (Auto) Negative 02/20/24 13:36 Urine Bilirubin (Auto) 0 mg/dL 02/20/24 13:36 Urine Urobilinogen (Auto) 0.2 mg/dL 02/20/24 13:36 Leukocyte Esterase (Auto) 0 Soheila/uL 02/20/24 13:36 Assessment & Plan Assessment & Plan (1) URI (upper respiratory infection): Code(s): J06.9 - Acute upper respiratory infection, unspecified Plan URI, no abx warranted. SARS-CoV2/FLU/RSV swab collected, results pending. Patient aware she will be called with results. Benzonatate 100mg po bid as needed Prednisone 40 mg p.o. daily x5 days Rest, drink plenty of fluids, tylenol or motrin as needed. Recommend taking OTC nasal decongestants, discuss with pharmacist heart healthy options. Follow up with pcp or in clinic for any new or worsening symptoms. Go to ER for shortness of breath, chest pain, palpitations, weakness, dizziness. Orders: Orders AMB Urinalysis Automated Today Z13.9 - Encounter for screening, unspecified SARS-CoV2/FLU/RSV Today J06.9 - Acute upper respiratory infection, unspecified Medications: New prednisone 40 mg (2 x 20 mg) PO DAILY 10 tabs 0RF 5 days benzonatate 100 mg PO BID PRN 20 caps 0RF cough Coding Level of Care Code Est Pt Level 3 (19906) Diagnoses URI (upper respiratory infection) J06.9
== END 2024-02-20 14:09 | disposition home or self-care (01) ==
PROVIDERS: PCP Internal Medicine; Visit Provider Registered Nurse Emergency
DX: J06.9 Acute upper respiratory infection, unspecified (principal)
CPT/HCPCS: 81003; 99213

== ENCOUNTER 2024-02-20 13:39 | Outpatient (REF) | payer MEDICARE, MEDICAID, SELFPAY ==
[2024-02-20 17:28] LABS: Influenza A PCR NEGATIVE (Negative); Influenza B PCR NEGATIVE (Negative); Resp Syncy Virus RNA Qual PCR NEGATIVE (Negative); SARS COV2 PCR INHOUSE NEGATIVE (Negative)
== END 2024-02-20 13:40 | disposition home or self-care (01) ==
LOC: HO.LAB 13:39
PROVIDERS: Visit Provider Registered Nurse Emergency
DX: J06.9 Acute upper respiratory infection, unspecified (principal); Z13.9 Encounter for screening, unspecified
CPT/HCPCS: 0241U

== ENCOUNTER 2024-02-24 11:26 | Outpatient (AMB) | payer MEDICARE, MEDICAID, SELFPAY ==
--- OUTSIDE RECORDS SUMMARY | 2024-02-24 11:27 | XMS_ITS | Continuity of Care Document ---
Author Organization [facility] Address [address] [place] [address]- Care Team Providers Care Intelligence Officer Basic Name Role Phone Dae CAMPOS, Asma Primary Care Physician [phone] [place] [facility] [place] - 11/05/[address] [address] Attending Physician: Marta Arora Admitting Physician: AdmtrMarta [...] Team Personnel Name: Dae CAMPOS, Vicky Position: [facility] Physician - Primary Care Member Role: PCP Address: Address: [address] [place] [address]- Care Team Related Persons Name: GENEVA IGLESIAS Address: home [address] [place], [place] Name: CONSTANCE SNEED Address: home [address] [address]
--- OUTSIDE RECORDS SUMMARY | 2024-02-24 11:27 | XMS_ITS | Continuity of Care Document ---
Author Organization [facility] Address [address] [place] [address]- Care Team Providers Care Internet Application Developer Name Role Phone Dae CAMPOS, Asma Primary Care Physician Encounter [facility] [place] Date(s): 08/10/23 - 09/09/[address] [address] Attending Physician: Marta Arora Admitting Physician: AdmtrMarta [...] Team Personnel Name: Dae CAMPOS, Vicky Position: [facility] Physician - Primary Care Member Role: PCP Address: Address: [address] [place] [address]- Care Team Related Persons Name: GENEVA IGLESIAS Address: home [address] [place], [place] Name: CONSTANCE SNEED Address: home [address] [address]
[2024-02-24 11:44] VITALS: BP 140/90; PULSE 74; TEMP 36.2; O2SAT 98; BMI 31.0
--- NOTE | 2024-02-24 11:44 | AM.OFFWIN_ITS ---
Intake Vital Signs 02/24/24 11:44 Height 5 ft 1 in Weight 164 lb BMI 31.0 BP 140/90 H Blood Pressure Location Lt brachial Position Sitting Pulse 74 Pulse Source Pulse Oximeter Temp 97.2 F Temp Source Temporal Artery Scan Pulse Oximetry (%) 98 Oxygen Delivery Method Room Air Intake Visit Reasons: EP trouble breathing Intake Note: pt is here today for trouble breathing started 1 week ago Patient Tobacco Use Status: Former Tobacco user Quit Date: 1984 Allergies aspirin [ASPIRIN] Allergy (Intermediate, Verified 02/24/24 11:50) HIVES, stomach upset codeine [CODEINE] Allergy (Intermediate, Verified 02/24/24 11:50) NAUSEA & VOMITING, drowsy, upset stomach ondansetron [Zofran] Allergy (Intermediate, Verified 02/24/24 11:50) headache Iodinated Contrast Media [IV Contrast Dye] Allergy (Verified 02/24/24 11:50) Unknown Medication List - Last Reconciled 02/24/24 by Vicky Pearl MD albuterol sulfate 90 mcg/actuation 1 inh inhalation QID PRN atenolol 25 mg PO DAILY 90 days benzonatate 100 mg PO BID PRN hoaxeqkvt-vvjlpwbm-imdnbyk ala 50-200-25 mg (Biktarvy) 1 tab PO DAILY esomeprazole magnesium 40 mg PO DAILY fluticasone propionate 50 mcg/actuation 1 spray intranasal DAILY gabapentin 200 mg (2 x 100 mg) PO BID hydroxyzine HCl 10 - 20 mg PO BEDTIME metaxalone 800 mg PO TID 10 days metronidazole 0.75% appl topical DAILY polyethylene glycol 3350 (Gavilax) 17 grams PO DAILY triamcinolone acetonide 0.1% topical BEDTIME valacyclovir 1,000 mg PO BID Do you need a note to return to daycare/school/sports/work: No HPI EP trouble breathing HPI Details Patient is a 63-year-old female came in today to be evaluated for shortness a breath Patient was in walk-in clinic on of this month with similar problem she was given 40 mg of prednisone for 5 days and benzo natate for cough Patient says that she felt little bit better but then symptoms came back She is wheezing currently having difficulty speaking in full sentences without taking a deep breath Pulse ox is 98% on room air DuoNeb nebulizer treatment was given Patient felt better Her air entry improved, patient says that she is able breathe, she was speaking in full sentences I am treating her with higher dose of prednisone and we will taper it slowly I have also added antibiotic We will also be sending nebulizer machine script along with DuoNeb So patient can use it at home if needed Patient is to return after finishing treatment for re-evaluation [facility] Medical History Cough Tubular adenoma Shoulder pain, right GERD (gastroesophageal reflux disease) Dysplasia of cervix, low grade (TOMA 1) Pulmonary nodules Abnormal EKG Knee pain, left Abnormal Pap smear of cervix Osteoarthritis Anxiety, generalized Chronic GERD HIV positive Surgical History History of esophagogastroduodenoscopy (EGD) History of colonoscopy History of section History of bilateral tubal ligation Family History Father CVD (cardiovascular disease) Mother Arthritis Social History Housing: House Alcohol intake: never Patient Tobacco Use Status: Former Tobacco user Quit Date: 1984 Tobacco use type: Cigarette e-Cigarette/Vaping Use: Never Used service: No Current occupational status: employed and disabled Cognitive needs: No Hearing needs: No Vision needs: Yes Female Reproductive History Menstrual Age of Menarche: 11 Review of Systems Const Denies chills and Denies fever(s) ENT Denies epistaxis and Denies nasal discharge Card Denies chest pain Resp Denies hemoptysis GI Denies diarrhea and Denies nausea Skin/Breast Denies rash Neuro Reports no additional complaints Psych Reports no additional complaints Endo Reports no additional complaints Physical Exam Vital Signs: Last Vital Signs Temp 97.2 F 02/24/24 11:44 Pulse 74 02/24/24 11:44 BP 140/90 H 02/24/24 11:44 Pulse Ox 98 02/24/24 11:44 Oxygen Delivery Method Room Air 02/24/24 11:44 BMI result Body Mass Index 31.0 Const General: cooperative and comfortable Orientation/consciousness: patient oriented x3 HEENT Head: Yes normocephalic Eyes General: appearance normal, both eyes and all related structures Neck Other: Supple Neck: Yes supple Resp Other: Wheezing bilateral, fair air entry, mild respiratory distress Effort & Inspection: no stridor Cardio Rhythm: regular rhythm Heart sounds: S1 normal heart sound present and S2 normal heart sound present Skin General skin exam: turgor normal Neuro Other: Motor sensory intact General: patient oriented x3, tone normal and moves all extremities Extrem Other: No lower extremity swelling. Right lower extremity: no edema Left lower extremity: no edema Psych Other: Normal effect, speech clear Office Procedures Nebulizer Treatment Nebulizer Treatment 38172-Pgtvhclsc/MDI RX initial, or Nebulizer Subsequent Treatment Office Meds ipratropium 0.5 mg-albuterol 3 mg (2.5 mg base)/3 mL nebulization soln Performing Provider: Vicky Pearl MD Performing Location: [facility] Administered by: Charity Bryant RN on 02/24/24 12:05 Dose Route Admin Location Dispensed Lot Number Expiration Date [employer] 3 mL inhalation 3 mL [id number] 08/09/25 27135-891-97 [employer] Assessment & Plan Assessment & Plan (1) Respiratory distress: Code(s): R06.03 - Acute respiratory distress (2) Asthma exacerbation: Code(s): J45.901 - Unspecified asthma with (acute) exacerbation Qualifiers: Asthma persistence: persistent Asthma severity: severe Qualified Code(s): J45.51 - Severe persistent asthma with (acute) exacerbation Plan Patient is a 63-year-old female came in today to be evaluated for shortness a breath Patient was in walk-in clinic on of this month with similar problem she was given 40 mg of prednisone for 5 days and benzonatate for cough Patient says that she felt little bit better but then symptoms came back She is wheezing currently having difficulty speaking in full sentences without taking a deep breath Pulse ox is 98% on room air DuoNeb nebulizer treatment was given Patient felt better Her air entry improved, patient says that she is able breathe, she was speaking in full sentences I am treating her with higher dose of prednisone and we will taper it slowly I have also added antibiotic We will also be sending nebulizer machine script along with DuoNeb So patient can use it at home if needed Patient is to return after finishing treatment for re-evaluation 45 minute spent in care of this patient Orders: Orders AMB Nebulizer Treatment Today J45.51 - Severe persistent asthma with (acute) exacerbation, R06.03 - Acute respiratory distress Medications: New prednisone PO once; 3 tabs for 2 days, then 2 tabs for 3 days, then 1 tab for 3 days, then half tab for 4 days 17 tabs 0RF 12 days azithromycin Take 2 tablets today then 1 daily 250 mg PO ONCE 6 tabs 0RF 5 days J06.9 - Acute upper respiratory infection, unspecified [Updraft machine] As directed 1 ea 0RF J45.51 - Severe persistent asthma with (acute) exacerbation, R06.03 - Acute respiratory distress ipratropium-albuterol 0.5 mg-3 mg(2.5 mg base)/3 mL 3 mL inhalation TID 30 mL 0RF wheezing 10 days Coding Level of Care Code Est Pt Level 5 (65018) Diagnoses Respiratory distress R06.03 Severe persistent asthma with exacerbation J45.51 Asthma persistence: persistent Asthma severity: severe CPT Codes Nebulizer Treatment - Nebulizer Treatment, initial or subsequent: 67472- Nebulizer/MDI RX initial, or Nebulizer Subsequent Treatment ([id number])
== END 2024-02-24 12:18 | disposition home or self-care (01) ==
PROVIDERS: PCP Internal Medicine; Visit Provider Internal Medicine
DX: R06.03 Acute respiratory distress (principal); J45.51 Severe persistent asthma with (acute) exacerbation
CPT/HCPCS: 94640; 99215; J7620

== ENCOUNTER 2024-05-08 12:28 | Outpatient (AMB) | payer MEDICARE, MEDICAID, SELFPAY ==
--- OUTSIDE RECORDS SUMMARY | 2024-05-08 12:29 | XMS_ITS | Continuity of Care Document ---
Author Organization [facility] Address [address] [place] [address]- Care Team Providers Care Photogrammetry Airplane Pilot Name Role Phone Dae CAMPOS, Asma Primary Care Physician [phone] Encounter [facility] [place] Date(s): 02/13/24 - 03/14/[address] [address] Attending Physician: Marta Arora Admitting Physician: AdmtrMarta [...] Team Personnel Name: Dae CAMPOS, Vicky Position: [facility] Physician - Primary Care Member Role: PCP Address: Address: [address] [place] [address]- Care Team Related Persons Name: GENEVA IGLESIAS Address: home [address] [place], [place] Name: CONSTANCE SNEED Address: [address] [address]
[2024-05-08 12:47] VITALS: BP 110/72; BMI 31.2
--- NOTE | 2024-05-08 12:47 | A.OFFVIS_ITS ---
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 No complaints. Last Pap/HPV was negative in 05/01 Last Mammogram was BI-RADS 1 in 08/01 Last Colonoscopy was in 05/30, the recommendation was to repeat in 5 years [facility] Medical History Cough Tubular adenoma Shoulder pain, right GERD (gastroesophageal reflux disease) Dysplasia of cervix, low grade (TOMA 1) Pulmonary nodules Abnormal EKG Knee pain, left Abnormal Pap smear of cervix Osteoarthritis Anxiety, generalized Chronic GERD HIV positive Surgical History History of esophagogastroduodenoscopy (EGD) History of colonoscopy History of section History of bilateral tubal ligation Family History Father CVD (cardiovascular disease) Mother Arthritis Social History Housing: House Alcohol intake: never Patient Tobacco Use Status: Former Tobacco user Tobacco use type: Cigarette e-Cigarette/Vaping Use: Never Used service: No Current occupational status: employed and disabled Cognitive needs: No Hearing needs: No Vision needs: Yes Female Reproductive History Menstrual Age of Menarche: 11 Total pregnancies: 5 Full term: 3 Number of Living Children: 3 Ab induced: 2 Date of last pap smear: 05/02/23 (neg pap and hpv) History of abnormal pap smear: Yes Date of Mammogram: 07/25/23 (Birad 1) Review of Systems Const All systems reviewed & are unremarkable except as noted in HPI and below Card Reports as per HPI Resp Reports as per HPI GI Reports as per HPI and Reports no additional complaints Reports as per [facility] Physical Exam Vital Signs: BMI result Body Mass Index 31.2 Const General: cooperative, healthy appearing and comfortable Chest Chest palpation & inspection: normal inspection of the chest and normal palpation of entire chest wall Breast/axilla inspection: normal inspection of the breasts and normal inspection of the axillae Breast/axilla palpation: normal palpation of the breasts, normal palpation of the axillae and no axillary lymphadenopathy Resp Effort & Inspection: normal respiratory effort Auscultation: clear to auscultation bilaterally Percussion: percussion normal Cardio Palpation: normal PMI Rate: regular rate Rhythm: regular rhythm Heart sounds: no murmurs and no rubs Peripheral pulses: Peripheral pulses 2+ throughout GI Inspection: Yes normal to inspection Palpation (GI): Soft to palpation, nontender, no guarding, not rigid and No hepatosplenomegaly present Percussion: Yes normal to percussion Auscultation: normal bowel sounds Rectal Exam - Female: deferred General: Yes bladder normal to palpation External Female Exam: No lesion Speculum Exam - Vagina: normal appearance of the vagina, normal palpation, normal vaginal discharge and not erythematous Speculum Exam - Cervix: normal appearance of the cervix and normal palpation Bimanual exam- vagina & uterus: normal bimanual exam, normal palpation, uterine size normal, bladder normal to palpation, consistency normal and normal palpation Bimanual Exam- Adnexa, other: normal adnexae, no masses and no tenderness Results AMB Urinalysis, Automated UA Leukoctes 0 Soheila/uL Last Edit by DEONDRE Whipple on 05/08/24 12:56 UA Nitrite Negative Last Edit by DEONDRE Whipple on 05/08/24 12:56 UA Urobilinogen 0 mg/dL Last Edit by DEONDRE Whipple on 05/08/24 12:5 6 UA Protein 0 mg/dL Last Edit by DEONDRE Whipple on 05/08/24 12:56 UA pH 7.0 Last Edit by DEONDRE Whipple on 05/08/24 12:56 UA Blood 0 James/uL Last Edit by DEONDRE Whipple on 05/08/24 12:56 UA Specific [place] 1.010 Last Edit by Tanja Delgadillo, RMA on 05/08/24 12:56 UA Ketone Negative Last Edit by Tanja Radha WalljorgeJOSE MARTIN gilbertA on 05/08/24 12:56 UA Bilirubin 0 mg/dL Last Edit by Tanja Radha Walljorgevladimir, RMA on 05/08/24 12:56 UA Glucose 0 mg/dL Last Edit by Tanjadelilah Delgadillo A on 05/08/24 12:56 Assessment & Plan Assessment & Plan (1) Well woman exam: Code(s): Z01.419 - Encounter for gynecological examination (general) (routine) without abnormal findings Category: Medical Plan: Co testing not indicated this year. Counseled the patient about the recommended dietary allowance of 1200 mg of Calcium & 600 IU of vitamin D. Next screening Mammogram schedule in 08/02. The patient was instructed to perform monthly self-breast exams and schedule annual exam in a year. All questions answered and the patient verbalized understanding. Coding Level of Care Code Est Pt Prev Care 40-64y(47794) Diagnoses Well woman exam Z01.419
== END 2024-05-08 13:04 | disposition home or self-care (01) ==
LOC: HO.HWS 12:28
PROVIDERS: PCP Internal Medicine; Visit Provider Obstetrics & Gynecology
DX: Z91.89 Other specified personal risk factors, not elsewhere classified (principal); R30.0 Dysuria
CPT/HCPCS: G0101

== ENCOUNTER → 2024-05-08 12:28 | Outpatient (BNVA) | payer MEDICARE, MEDICAID, SELFPAY | PROVIDERS: PCP Internal Medicine; Visit Provider Obstetrics & Gynecology | DX: Z01.419 Encounter for gynecological examination (general) (routine) without abnormal findings (principal) | CPT/HCPCS: 81003; G0101 ==

== ENCOUNTER 2024-05-23 14:42 | Outpatient (AMB) | payer MEDICARE, MEDICAID, SELFPAY ==
--- NOTE | 2024-05-23 14:48 | A.OFFVIS_ITS ---
Vital Signs 05/23/24 14:49 Height 5 ft 1 in Weight 166 lb 3.657 oz BMI 31.4 BP 132/68 Blood Pressure Location Rt brachial Position Sitting Pulse 66 Pulse Source Pulse Oximeter Pulse Oximetry (%) 99 Oxygen Delivery Method Room Air Intake Visit Reasons: 3 month follow up Intake Note: Rhina presents in office today for a scheduled 3 mos FUV. CC; Pt reports that they have been stable and doing well since their last visit. Pt denies any new concerns or sx at this time. 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 Nexium helpfull. Will send her script. Continue avoiding dietary triggers and late night snacking. Staying upright for minimum 3 hours after meals discussed with patient. Patient will follow-up in the office in 3 months, sooner on as needed basis. She is agreeable to this plan and verbalizes understanding of instructions. She was given the opportunity to ask questions and all questions answered. ? Thank you for allowing me to participate in her care Medications New esomeprazole magnesium 40 mg PO DAILY 90 caps 2RF TODAY'S VISIT Patient is here today for follow-up. Patient reports that she has been feeling better now that she started Nexium. Patient no longer experiences epigastric pain or dyspepsia. Denies any dysphagia or odynophagia. Patient reports to have good appetite. Denies abdominal pain, bloating, diarrhea. Patient denies melena, hematochezia, unintentional weight loss or ribbon like stools. Patient reports that she is moving her bowels daily. Colonoscopy in 2020 tubular adenoma, will need colonoscopy in 2025 sooner if clinically necessary. [facility] Medical History Cough Tubular adenoma Shoulder pain, right GERD (gastroesophageal reflux disease) Dysplasia of cervix, low grade (TOMA 1) Pulmonary nodules Abnormal EKG Knee pain, left Abnormal Pap smear of cervix Osteoarthritis Anxiety, generalized Chronic GERD HIV positive Surgical History History of esophagogastroduodenoscopy (EGD) History of colonoscopy History of section History of bilateral tubal ligation Family History Father CVD (cardiovascular disease) Mother Arthritis Social History Housing: House Alcohol intake: never Patient Tobacco Use Status: Former Tobacco user Tobacco use type: Cigarette e-Cigarette/Vaping Use: Never Used service: No Current occupational status: employed and disabled Cognitive needs: No Hearing needs: No Vision needs: Yes Female Reproductive History Menstrual Age of Menarche: 11 Review of Systems Const Denies weight gain and Denies weight loss ENT Reports no additional complaints, Denies dysphagia and Denies odynophagia Card Reports no additional complaints Resp Reports no additional complaints GI Denies abdominal pain, Denies belching, Denies melena, Denies bloating, Denies change in bowel habits, Denies dysphagia, Denies excessive flatus, Denies dyspepsia, Denies heartburn, Denies diarrhea, Denies loose stools, Denies nausea, Denies odynophagia and Denies vomiting Musc Reports no additional complaints Neuro Reports no additional complaints Psych Reports no additional complaints Endo Reports no additional complaints Physical Exam Vital Signs: Last Vital Signs Pulse 66 05/23/24 14:49 BP 132/68 05/23/24 14:49 Pulse Ox 99 05/23/24 14:49 Oxygen Delivery Method Room Air 05/23/24 14:49 BMI result Body Mass Index 31.4 Const General: healthy appearing and no acute distress Nutritional Appearance: obese Orientation/consciousness: patient oriented x3 Resp Effort & Inspection: normal respiratory effort, able to speak in complete sentences, no tracheal deviation and symmetric chest movement Auscultation: clear to auscultation bilaterally Cardio Rate: regular rate Heart sounds: S1 normal heart sound present and S2 normal heart sound present GI Inspection: Yes normal to inspection, No distended and Yes obesity Palpation (GI): Soft to palpation, not firm, nontender and No hepatosplenomegaly present Auscultation: normal bowel sounds General: Yes no CVA tenderness Back/Spine/Pelvis Back: no CVA tenderness Skin General skin exam: elasticity normal, turgor normal and dry skin Neuro General: patient oriented x3 Psych Appearance: grossly normal Mental Status: mental status grossly normal Assessment & Plan Assessment & Plan (1) GERD (gastroesophageal reflux disease): Code(s): K21.9 - Gastro-esophageal reflux disease without esophagitis Category: Medical Qualifiers: Esophagitis presence: without esophagitis Qualified Code(s): K21.9 - Gastro-esophageal reflux disease without esophagitis (2) Dysphagia: Code(s): R13.10 - Dysphagia, unspecified Qualifiers: Dysphagia type: pharyngoesophageal phase Qualified Code(s): R13.14 - Dysphagia, pharyngoesophageal phase Plan Continue Nexium daily. Avoid dietary triggers and late night snacking. Staying upright for minimum 3 hours after meals discussed with patient. Follow-up in 4 months, sooner on as needed basis. She is agreeable to this plan and verbalizes understanding of instructions. Patient was given the opportunity to ask questions and all questions answered. Thank you for allowing me to participate in her care Coding Level of Care Code Est Pt Level 3 (77560) Diagnoses Gastroesophageal reflux disease without esophagitis K21.9 Esophagitis presence: without esophagitis Pharyngoesophageal dysphagia R13.14 Dysphagia type: pharyngoesophageal phase Time Spent (min) 25 Comment 15 minutes spent with patient and additional 10 minutes spent reviewing her records
[2024-05-23 14:49] VITALS: BP 132/68; PULSE 66; O2SAT 99; BMI 31.4
== END 2024-05-23 15:36 | disposition home or self-care (01) ==
PROVIDERS: PCP Internal Medicine; Visit Provider Nurse Practitioner Family
DX: K21.9 Gastro-esophageal reflux disease without esophagitis (principal); R13.14 Dysphagia, pharyngoesophageal phase
CPT/HCPCS: 99213

== ENCOUNTER → 2024-05-23 14:42 | Outpatient (BNVA) | payer MEDICARE, MEDICAID, SELFPAY | PROVIDERS: PCP Internal Medicine; Visit Provider Nurse Practitioner Family | DX: K21.9 Gastro-esophageal reflux disease without esophagitis (principal); R13.14 Dysphagia, pharyngoesophageal phase | CPT/HCPCS: 99212 ==

== ENCOUNTER 2024-06-05 11:15 | Outpatient (AMB) | payer MEDICARE, MEDICAID, SELFPAY ==
[2024-06-05 11:24] VITALS: BP 146/94; PULSE 71; TEMP 37.2; O2SAT 97; BMI 31.4
--- NOTE | 2024-06-05 11:24 | AM.OFFWIN_ITS ---
Intake Vital Signs 06/05/24 11:24 Height 5 ft 1 in Weight 166 lb BMI 31.4 BP 146/94 H Blood Pressure Location Rt brachial Position Sitting Pulse 71 Pulse Source Pulse Oximeter Temp 99.0 F Temp Source Oral Pulse Oximetry (%) 97 Oxygen Delivery Method Room Air Intake Visit Reasons: ep cough Intake Note: pt c/o cough. started Tuesday Patient Tobacco Use Status: Former Tobacco user Allergies aspirin [ASPIRIN] Allergy (Intermediate, Verified 06/05/24 11:28) HIVES, stomach upset codeine [CODEINE] Allergy (Intermediate, Verified 06/05/24 11:28) NAUSEA & VOMITING, drowsy, upset stomach ondansetron [Zofran] Allergy (Intermediate, Verified 06/05/24 11:28) headache Iodinated Contrast Media [IV Contrast Dye] Allergy (Verified 06/05/24 11:28) Unknown Do you need a note to return to daycare/school/sports/work: No HPI ep cough HPI Details Patient presents for a sick visit. Reporting symptoms of sinus congestion, sore throat and difficulty swallowing. Low-grade fever. No family member is sick. No recent travel. Patient reports symptoms of malaise and fatigue. [facility] Medical History Cough Tubular adenoma Shoulder pain, right GERD (gastroesophageal reflux disease) Dysplasia of cervix, low grade (TOMA 1) Pulmonary nodules Abnormal EKG Knee pain, left Abnormal Pap smear of cervix Osteoarthritis Anxiety, generalized Chronic GERD HIV positive Surgical History History of esophagogastroduodenoscopy (EGD) History of colonoscopy History of section History of bilateral tubal ligation Family History Father CVD (cardiovascular disease) Mother Arthritis Social History Housing: House Alcohol intake: never Patient Tobacco Use Status: Former Tobacco user Tobacco use type: Cigarette e-Cigarette/Vaping Use: Never Used service: No Current occupational status: employed and disabled Cognitive needs: No Hearing needs: No Vision needs: Yes Female Reproductive History Menstrual Age of Menarche: 11 Physical Exam Vital Signs: Last Vital Signs Temp 99.0 F 08/27/24 11:24 Pulse 71 06/05/24 11:24 BP 146/94 H 06/05/24 11:24 Pulse Ox 97 06/05/24 11:24 Oxygen Delivery Method Room Air 06/05/24 11:24 BMI result Body Mass Index 31.4 Const General: cooperative and healthy appearing Nutritional Appearance: well nourished Orientation/consciousness: patient oriented x3 Limitations: no limitations HEENT Head: Yes normal to inspection Eyes General: appearance normal, both eyes and all related structures Neck Neck: Yes normal visual inspection Chest Chest palpation & inspection: normal palpation of entire chest wall Resp Effort & Inspection: normal respiratory effort Neuro General: patient oriented x3 Assessment & Plan Assessment & Plan (1) Asthma exacerbation: Code(s): J45.901 - Unspecified asthma with (acute) exacerbation Qualifiers: Asthma persistence: persistent Asthma severity: severe Qualified Code(s): J45.51 - Severe persistent asthma with (acute) exacerbation Plan: Antibiotics ordered. Increase fluid intake. Tylenol for aches and pains. If symptoms worsen, follow-up here for a recheck. Coding Level of Care Code Est Pt Level 3 (36627) Diagnoses Severe persistent asthma with exacerbation J45.51 Asthma persistence: persistent Asthma severity: severe
== END 2024-06-05 12:37 | disposition home or self-care (01) ==
PROVIDERS: PCP Internal Medicine; Visit Provider Internal Medicine
DX: J45.51 Severe persistent asthma with (acute) exacerbation (principal)
CPT/HCPCS: 99213

== ENCOUNTER 2024-07-13 10:36 | Outpatient (AMB) | payer MEDICARE, MEDICAID, SELFPAY ==
[2024-07-13 10:37] VITALS: BP 146/88; PULSE 64; O2SAT 99; BMI 31.2
--- NOTE | 2024-07-13 10:37 | MHC.PC.OV ---
Vital Signs 07/13/24 10:37 Height 5 ft 1 in Weight 165 lb 6 oz BMI 31.2 BP 146/88 H Blood Pressure Location Rt brachial Position Sitting Pulse 64 Pulse Source Pulse Oximeter Pulse Oximetry (%) 99 Oxygen Delivery Method Room Air Intake Visit Reasons: Annual PE Allergies aspirin [ASPIRIN] Allergy (Intermediate, Verified 07/13/24 10:37) HIVES, stomach upset codeine [CODEINE] Allergy (Intermediate, Verified 07/13/24 10:37) NAUSEA & VOMITING, drowsy, upset stomach ondansetron [Zofran] Allergy (Intermediate, Verified 07/13/24 10:37) headache Iodinated Contrast Media [IV Contrast Dye] Allergy (Verified 07/13/24 10:37) Unknown Medication List - Last Reconciled 07/13/24 by Vicky Pearl MD albuterol sulfate 90 mcg/actuation 1 inh inhalation QID PRN atenolol 25 mg PO DAILY 90 days [id number] ala 50-200-25 mg (Biktarvy) 1 tab PO DAILY cyclobenzaprine 10 mg PO BEDTIME esomeprazole magnesium 40 mg PO DAILY fluticasone propionate 50 mcg/actuation 1 spray intranasal DAILY gabapentin 200 mg (2 x 100 mg) PO BID hydroxyzine HCl 10 - 20 mg PO BEDTIME ipratropium-albuterol 0.5 mg-3 mg(2.5 mg base)/3 mL 3 mL inhalation TID 10 days meloxicam 15 mg PO DAILY polyethylene glycol 3350 (Gavilax) 17 grams PO DAILY sucralfate 1 g PO DAILY triamcinolone acetonide 0.1% topical BEDTIME [Updraft machine As directed] valacyclovir 1,000 mg PO BID Tobacco use date assessed: 07/13/24 Dental Screening Dental Screen Date: 07/13/24 Did you have a dental visit in the last 12 months?: Yes Did you have a dental problem in the last 6 months where you did not have access to dental care?: No Was dental information given to patient?: Patient has dentist HPI Annual PE HPI Details Patient is 63-year-old female came in today for physical exam Patient says that she has been having cough off and on for the past 1 month and also has developed pain right side ribcage in the back On examination she has a point tenderness I have ordered rib x-ray and chest x-ray for the patient She is also due for labs Flu vaccine given today Mammogram appointment is coming up Colonoscopies through Gastroenterology Obgyn visit was April of this year Patient is deficient in vitamin-D, I have told her to start taking supplement PFSH Medical History Cough Tubular adenoma Shoulder pain, right GERD (gastroesophageal reflux disease) Dysplasia of cervix, low grade (TOMA 1) Pulmonary nodules Abnormal EKG Knee pain, left Abnormal Pap smear of cervix Osteoarthritis Anxiety, generalized Chronic GERD HIV positive Surgical History History of esophagogastroduodenoscopy (EGD) History of colonoscopy History of section History of bilateral tubal ligation Family History Father CVD (cardiovascular disease) Mother Arthritis Social History Housing: House Alcohol intake: never Patient Tobacco Use Status: Former Tobacco user Tobacco use type: Cigarette e-Cigarette/Vaping Use: Never Used service: No Current occupational status: employed and disabled Cognitive needs: No Hearing needs: No Vision needs: Yes Female Reproductive History Menstrual Age of Menarche: 11 Questionnaire PHQ-9 Over the last 2 weeks, how often have you been bothered by any of the following problems? 1. Little interest or pleasure in doing things: not at all 2. Feeling down, depressed, or hopeless: not at all 3. Trouble falling or staying asleep, or sleeping too much: not at all 4. Feeling tired or having little energy: not at all 5. Poor appetite or overeating: not at all 6. Feeling bad about yourself - or that you are a failure or have let yourself or your family down: not at all 7. Trouble concentrating on things, such as reading the newspaper or watching television: not at all 8. Moving or speaking so slowly that other people could have noticed. Or the opposite - being so fidgety or restless that you have been moving around a lot more than usual: not at all 9. Thoughts that you would be better off or of hurting yourself in some way: not at all Total score: 0 Depression Screening Interpretation: Negative Depression Screening Done: Yes 35892 - PHQ-9 Billing: Yes Source: Developed by Drs. Miguel Ángel Toth, Georgia Ferrari, Ryan Funez and colleagues, with an educational bart from [employer] (formerly [employer]). Thrive Questionnaire Date Thrive assessed: 07/13/24 I am a: Patient What is your living situation today?: I have a steady place to live Within the past 12 months, did the food you bought not last and you didn't have the money to get more?: Never true Within the past 12 months, did you worry whether your food would run out before you got money to buy more?: Never true Do you have trouble paying for medicines?: No Do you have trouble getting transportation to medical appointments?: No Do you have trouble paying your heating and electricity bill?: No Do you have trouble taking care of your child, family member or friend?: No Do you have trouble with day-to-day activities such as bathing, preparing meals, shopping, managing finances, etc.?: No Are you currently unemployed and looking for a job?: No Are you interested in more education?: No Please select the resources that you would like help with: None Currently or been in a relationship where the following occur: No concerns reported THRIVE Score: 0 AUDIT C Alcohol Use Questionnaire (AUDIT-C) 1. How often do you have a drink containing alcohol?: Never 3. How often do you have six or more drinks on one occasion?: Never Total Score: 0 Score Reviewed/Action Taken: Yes IAN-7 AMB Questionnaire IAN-7 Date IAN - 7 assessed: 07/13/24 Feeling nervous, anxious, or on edge: 0 = Not at all Not being able to stop or control worryin = Not at all Worrying too much about different things: 0 = Not at all Trouble relaxin = Not at all Being so restless that it is hard to sit still: 0 = Not at all Becoming easily annoyed or irritable: 0 = Not at all Feeling afraid as if something awful might happen: 0 = Not at all Total IAN-7 score (0-4 normal; 5-9 mild; 10-14 moderate; 15-21 severe): 0 Source: Developed by Drs. Miguel Ángel Toth, Georgia Ferrari, Ryan Funez and colleagues, with an educational bart from [employer] (formerly [employer]). IAN-7 Assessment Billing IAN-7 Assessment Tool: IAN-7 Assessment 33382 Review of Systems Const Denies chills, Denies fever(s) and Denies headache(s) Eyes Denies blurry vision ENT Denies headache(s), Denies nasal discharge, Denies nasal obstruction, Denies odynophagia and Denies sinus pain Resp Denies hemoptysis GI Denies diarrhea, Denies odynophagia, Denies vomiting and Denies hematemesis Reports as per HPI Musc Denies abnormal gait Skin/Breast Reports as per HPI Neuro Denies Neuro-related abnormal movements, Denies Abnormal speech present, Denies abnormal gait, Denies headache(s) and Denies Sensory deficit (Neuro) Psych Denies mood swings and Denies paranoia Endo Reports as per HPI Mohamud/Lymph Reports as per HPI Aller/Immun Reports as per HPI Physical exam (Primary Care) Vital Signs: Last Vital Signs Pulse 64 07/13/24 10:37 BP 146/88 H 07/13/24 10:37 Pulse Ox 99 07/13/24 10:37 Oxygen Delivery Method Room Air 07/13/24 10:37 BMI result Body Mass Index 31.2 Tobacco/Smoking Status: Tobacco use Status Tobacco use date assessed 07/13/24 07/13/24 10:40 Patient Tobacco Use Status Former Tobacco user 07/13/24 10:40 Tobacco use type Cigarette 07/13/24 10:40 e-Cigarette/Vaping Use Never Used 07/13/24 10:40 PHQ-9: PHQ-9 Score PHQ-9: Total score 0 07/13/24 11:01 Depression Screening Interpretation: Negative Thrive Assessment: Date of Thrive Assessment Date Thrive assessed 07/13/24 07/13/24 10:44 Currently or been in a relationship where the following occur: No concerns reported Const General: cooperative, comfortable and no acute distress Orientation/consciousness: patient oriented x3 HENMT Head: Yes normocephalic and Yes atraumatic Eyes General: appearance normal, both eyes and all related structures Pupils: Equal, round and reactive pupils present EOM: EOMs intact bilaterally Neck Neck: Yes supple and No lymphadenopathy Thyroid: Thyroid normal Lymphatic: no lymphadenopathy noted Resp Effort & Inspection: normal respiratory effort and able to speak in complete sentences Auscultation: clear to auscultation bilaterally Cardio Heart sounds: S1 normal heart sound present and S2 normal heart sound present GI Palpation (GI): Soft to palpation and nontender Auscultation: normal bowel sounds General: Yes no CVA tenderness Back/Spine/Pelvis Back: no CVA tenderness Skin General skin exam: elasticity normal and turgor normal Neuro General: patient oriented x3 and gait normal Cranial nerves: Yes Equal, round and reactive pupils present Speech: No Abnormal speech present Sensory Exam: No Sensory deficit (Neuro) Coordination: tandem gait normal and Romberg test negative Extrem General: Yes normal exam except as noted and No edema Office Procedures Flu Questionnaire Does the patient have a severe egg allergy?: No Does the patient have severe life threatening allergies?: No Does the patient have a fever or illness today?: No Has the patient ever had Guillain-P[place] Syndrome?: No Has the patient ever had any past reaction to a flu shot?: No Immunizations Fluarix Triv 9440-7145 (PF) 45 mcg (15 mcg x 3)/0.5 mL IM syringe Performing Provider: Vicky Pearl MD [place] [facility] Administered by: MARIA ISABEL Moura on 07/13/24 11:04 Dose Route Admin Location Dispensed Lot Number Expiration Date [facility] Electrician Bus 0.5 mL IM Left Deltoid 0.5 mL [id number] 04/08/25 [id number] [employer] VIS Given Date VIS Provided VIS Publication Date 07/13/24 Single Vaccine 21 Eligibility Eligibility Date Funding Source Not [facility] Eligible 07/13/24 Private Coding Level of Care Code Est Pt Level 3 (73606) Est Pt Prev Care 40-64y(55404) Diagnoses Encounter for general adult medical examination with abnormal findings Z00.01 Right-sided chest pain R07.9 Hypertension, essential I10 HIV positive Z21 Chronic GERD K21.9 Anxiety, generalized F41.1 Gastroesophageal reflux disease without esophagitis K21.9 Esophagitis presence: without esophagitis Osteoarthritis involving multiple joints on both sides of body M15.9 Additional Codes IAN-7 Assessment Billing - IAN-7 Assessment Tool: IAN-7 Assessment 22568 ([id number]) Assessment & Plan Assessment & Plan (1) Encounter for general adult medical examination with abnormal findings: Code(s): Z00.01 - Encounter for general adult medical examination with abnormal findings Category: Medical (2) Right-sided chest pain: Code(s): R07.9 - Chest pain, unspecified Category: Medical (3) Hypertension, essential: Code(s): I10 - Essential (primary) hypertension Category: Medical (4) HIV positive: Code(s): Z21 - Asymptomatic human immunodeficiency virus [HIV] infection status Category: Medical (5) Chronic GERD: Code(s): K21.9 - Gastro-esophageal reflux disease without esophagitis Category: Medical (6) Anxiety, generalized: Code(s): F41.1 - Generalized anxiety disorder Category: Medical (7) GERD (gastroesophageal reflux disease): Code(s): K21.9 - Gastro-esophageal reflux disease without esophagitis Category: Medical Qualifiers: Esophagitis presence: without esophagitis Qualified Code(s): K21.9 - Gastro-esophageal reflux disease without esophagitis (8) Osteoarthritis involving multiple joints on both sides of body: Code(s): M15.9 - Polyosteoarthritis, unspecified Category: Medical Plan Patient is 63-year-old female came in today for physical exam Patient says that she has been having cough off and on for the past 1 month and also has developed pain right side ribcage in the back On examination she has a point tenderness I have ordered rib x-ray and chest x-ray for the patient She is also due for labs Flu vaccine given today Mammogram appointment is coming up Colonoscopies through Gastroenterology Obgyn visit was April of this year Patient is deficient in vitamin-D, I have told her to start taking supplement Orders: Orders XR ribs RT min 3V w CXR1V Today R07.9 - Chest pain, unspecified Comprehensive [place]. Panel Fast Today F41.1 - Generalized anxiety disorder, I10 - Essential (primary) hypertension, K21.9 - Gastro-esophageal reflux disease without esophagitis, M15.9 - Polyosteoarthritis, unspecified, R07.9 - Chest pain, unspecified, Z00.01 - Encounter for general adult medical examination with abnormal findings, Z21 - Asymptomatic human immunodeficiency virus [HIV] infection status Vitamin D 25-OH (D2 and D3) Today F41.1 - Generalized anxiety disorder, I10 - Essential (primary) hypertension, K21.9 - Gastro-esophageal reflux disease without esophagitis, M15.9 - Polyosteoarthritis, unspecified, R07.9 - Chest pain, unspecified, Z00.01 - Encounter for general adult medical examination with abnormal findings, Z21 - Asymptomatic human immunodeficiency virus [HIV] infection status TSH reflex Free T4 Today F41.1 - Generalized anxiety disorder, I10 - Essential (primary) hypertension, K21.9 - Gastro-esophageal reflux disease without esophagitis, M15.9 - Polyosteoarthritis, unspecified, R07.9 - Chest pain, unspecified, Z00.01 - Encounter for general adult medical examination with abnormal findings, Z21 - Asymptomatic human immunodeficiency virus [HIV] infection status Vitamin B12 Today F41.1 - Generalized anxiety disorder, I10 - Essential (primary) hypertension, K21.9 - Gastro-esophageal reflux disease without esophagitis, M15.9 - Polyosteoarthritis, unspecified, R07.9 - Chest pain, unspecified, Z00.01 - Encounter for general adult medical examination with abnormal findings, Z21 - Asymptomatic human immunodeficiency virus [HIV] infection status Influenza [id number] Immunization Today Z23 - Encounter for immunization Complete Blood Count Auto Diff Today F41.1 - Generalized anxiety disorder, I10 - Essential (primary) hypertension, K21.9 - Gastro-esophageal reflux disease without esophagitis, M15.9 - Polyosteoarthritis, unspecified, R07.9 - Chest pain, unspecified, Z00.01 - Encounter for general adult medical examination with abnormal findings, Z21 - Asymptomatic human immunodeficiency virus [HIV] infection status Lipid Panel Today F41.1 - Generalized anxiety disorder, I10 - Essential (primary) hypertension, K21.9 - Gastro-esophageal reflux disease without esophagitis, M15.9 - Polyosteoarthritis, unspecified, R07.9 - Chest pain, unspecified, Z00.01 - Encounter for general adult medical examination with abnormal findings, Z21 - Asymptomatic human immunodeficiency virus [HIV] infection status Medications: New cholecalciferol (vitamin D3) 25 mcg PO DAILY 90 days 90 caps 1RF Refilled [Updraft machine] As directed 1 ea 0RF J45.51 - Severe persistent asthma with (acute) exacerbation, R06.03 - Acute respiratory distress
== END 2024-07-13 11:24 | disposition home or self-care (01) ==
PROVIDERS: PCP Internal Medicine; Visit Provider Internal Medicine
DX: Z00.00 Encounter for general adult medical examination without abnormal findings (principal); R07.9 Chest pain, unspecified; I10 Essential (primary) hypertension; Z21 Asymptomatic human immunodeficiency virus [HIV] infection status; K21.9 Gastro-esophageal reflux disease without esophagitis; F41.1 Generalized anxiety disorder; M15.9 Polyosteoarthritis, unspecified; Z23 Encounter for immunization

== ENCOUNTER → 2024-07-13 10:36 | Outpatient (BNVA) | payer MEDICARE, MEDICAID, SELFPAY | PROVIDERS: PCP Internal Medicine; Visit Provider Internal Medicine ==

== ENCOUNTER 2024-07-13 11:02 | Outpatient (REF) | payer MEDICARE, MEDICAID, SELFPAY ==
--- NOTE | ~2024-07-13 | XR_ITS ---
EXAMINATION: XR RIBS RIGHT 4 VIEWS CLINICAL INFORMATION: Chest pain, unspecified R07.9. COMPARISON: XR Right ribs 11/05/2022 TECHNIQUE: 3 views of the right ribs were obtained. FINDINGS: Lungs are clear. No consolidation, pneumothorax, or pleural effusion. The cardiomediastinal silhouette and pulmonary vasculature are normal. Osseous structures are unremarkable. Ribs are intact. No fractures are identified. Surgical clips in the right upper quadrant XR/XR ribs RT min 3V w CXR1V IMPRESSION: 1. No acute cardiopulmonary process. 2. No displaced rib fractures. Electronically signed by: Miguel Ángel Spears MD 09/19/2024 08:47 AM EST
[2024-07-13 13:03] LABS: MANUAL DIFF FLAG NO
[2024-07-13 13:13] LABS: Basophils Percent Auto 0.6 % (0-2); Eosinophils Percent Auto 0.8 % (0-4); Hematocrit 36.2 % (37.0-47.0); Hemoglobin 11.8 g/dl (12.0-16.0); Imm Gran Abs Auto 0.01 X10*3/uL (0.00-0.03); Imm Gran Pct Auto 0.3 % (0.0-0.4); Lymphocytes Absolute Auto 0.8 X10*3/uL (1.2-4.9); Lymphocytes Percent Auto 22.1 % (20-40); Mean Corpuscular HGB Conc 32.6 g/dl (31.0-35.0); Mean Corpuscular Hemoglobin 29.9 pg (27.0-33.0); Mean Corpuscular Volume 91.6 fL (80.0-98.0); Mean Platelet Volume 11.1 fL (9.4-12.3); Monocytes Absolute Auto 0.3 X10*3/uL (0.1-1.2); Monocytes Percent Auto 7.3 % (2-11); Neutrophils Absolute Auto 2.5 x10*3/uL (2.0-8.3); Neutrophils Percent Auto 68.9 % (45-73); Platelet Count 253 X10*3/uL (160-400); Red Blood Count 3.95 X10*6/uL (4.20-5.50); Red Cell Distribution Width 12.2 % (11.0-16.0); White Blood Count 3.6 X10*3/uL (4.8-10.8)
[2024-07-13 14:04] LABS: Vitamin B12 424 pg/mL (200-900)
[2024-07-13 14:05] LABS: Alanine Aminotransferase 14 U/L (0-31); Alkaline Phosphatase 69 U/L (39-117); Anion Gap 8 (12-20); Aspartate Amino Transferase 22 U/L (5-31); Bilirubin Total 0.4 mg/dL (0.0-1.0); Blood Urea Nitrogen 14 mg/dL (9-16); Carbon Dioxide 30 mmol/L (22-29); Chloride 108 mmol/L (96-108); Cholesterol 156 mg/dL (<200); Estimated Glomerular Filt Rate > 60; Glucose Fasting 93 mg/dL (60-99); HDL Cholesterol 42 mg/dL (>40); LDL Cholesterol Calculated 89 mg/dL (<100); Potassium 3.8 mmol/L (3.3-5.1); Sodium 142 mmol/L (135-145); Total Protein 6.9 g/dL (6.5-8.0); Triglycerides 129 mg/dL (<150)
[2024-07-13 14:37] LABS: TSH reflex Free T4 0.85 uIU/mL (0.32-4.0)
[2024-07-20 11:58] LABS: Vitamin D 25-OH, D2 <4 ng/mL; Vitamin D 25-OH, D3 19 ng/mL; Vitamin D 25-OH, Total 19 ng/mL (30-100)
== END 2024-07-13 11:03 | disposition home or self-care (01) ==
LOC: HO.HMGCX 11:02
PROVIDERS: PCP Internal Medicine; Visit Provider Internal Medicine
DX: Z00.01 Encounter for general adult medical examination with abnormal findings (principal); Z23 Encounter for immunization; R07.9 Chest pain, unspecified; I10 Essential (primary) hypertension; Z21 Asymptomatic human immunodeficiency virus [HIV] infection status; K21.9 Gastro-esophageal reflux disease without esophagitis; F41.1 Generalized anxiety disorder; M15.9 Polyosteoarthritis, unspecified
CPT/HCPCS: 36415; 71101; 80053; 80061; 82306; 82607; 84443; 85025; 90471; 90656; 96127; 99212; 99396

== ENCOUNTER 2024-07-30 12:32 | Outpatient (REF) | payer MEDICARE, MEDICAID, SELFPAY ==
--- NOTE | ~2024-07-30 | MM_ITS ---
EXAMINATION: MM SCREENING DIGITAL BREAST TOMOSYNTHESIS, BILATERAL CLINICAL INFORMATION: Screening. Asymptomatic. COMPARISON: Mammography: Comparison is made with available priors TECHNIQUE: Digital breast mammography with tomosynthesis is performed in both the craniocaudal and mediolateral oblique views along with computer-aided detection (CAD). FINDINGS: There are scattered areas of fibroglandular density (ACR BI-RADS breast composition Category b). There are no significant masses, abnormal calcifications, or other abnormalities. MM/MM tomosynthesis screening BI IMPRESSION: No mammographic evidence of malignancy. ASSESSMENT: BI-RADS BI-RADS 1 - Negative RECOMMENDATION: Routine annual mammography screening. 1 year F/U This examination should not preclude the clinical evaluation of a suspicious palpable abnormality. This patient's information was entered into a reminder system with a target due date for their next mammogram. Electronically signed by: Tonya Guillory DO 08/10/2024 10:48 AM EDT
== END 2024-07-30 12:33 | disposition home or self-care (01) ==
LOC: HO.MAMMO 12:32
PROVIDERS: PCP Internal Medicine; Visit Provider Internal Medicine
DX: Z12.31 Encounter for screening mammogram for malignant neoplasm of breast (principal)
CPT/HCPCS: 77063; 77067

== ENCOUNTER → 2024-07-30 12:45 | Outpatient (BNV) | payer MEDICARE, MEDICAID, SELFPAY | PROVIDERS: PCP Internal Medicine; Visit Provider Internal Medicine | DX: Z12.31 Encounter for screening mammogram for malignant neoplasm of breast (principal) | CPT/HCPCS: 77063; 77067 ==

== ENCOUNTER 2024-10-19 10:38 | Outpatient (AMB) | payer MEDICARE, MEDICAID, SELFPAY ==
--- NOTE | 2024-10-19 10:59 | AM.OFFWIN_ITS ---
Intake Vital Signs 10/19/24 11:01 Height 5 ft 1 in Weight 166 lb BMI 31.4 BP 122/76 Blood Pressure Location Lt brachial Position Sitting Pulse 81 Pulse Source Pulse Oximeter Temp 98.2 F Temp Source Oral Pulse Oximetry (%) 98 Oxygen Delivery Method Room Air Intake Visit Reasons: EP cough Intake Note: Pt is here today for a walk in visit Pt c/o cough congestion since last Tuesday. Patient Tobacco Use Status: Former Tobacco user Allergies aspirin [ASPIRIN] Allergy (Intermediate, Verified 10/19/24 11:03) HIVES, stomach upset codeine [CODEINE] Allergy (Intermediate, Verified 10/19/24 11:03) NAUSEA & VOMITING, drowsy, upset stomach ondansetron [Zofran] Allergy (Intermediate, Verified 10/19/24 11:03) headache Iodinated Contrast Media [IV Contrast Dye] Allergy (Verified 10/19/24 11:03) Unknown Do you need a note to return to daycare/school/sports/work: No HPI HPI Comments History of Present Illness Details History - The patient is a 63 year old female pr esenting with cough and shortness of breath. - She reports the cough has lasted for a week, starting last Tuesday, associated with congestion. - The patient has a known history of ast hma, impacting her respiratory status. - Rescue inhaler use is reported but wit h inadequate relief of symptoms. - NyQuil is the only rzka-hma-jliabnz me dication taken, with no use of decongestants. - Reports headaches attributed to sinus congestion, experienced alongside intermittent fever during the night. - Recent illness in her grandson, who sh owed similar symptoms but improved without antibiotics or viral testing. - Access to a nebulizer machine is curre ntly limited due to insurance issues, affecting asthma management. Physical Exam General: Cooperative, healthy appearing, comfortable and no acute distress Orientation/consciousness: Patient oriented x3 Limitations: No limitations Head: Normal to inspection Ears: Hearing grossly normal bilaterally, external ears normal, fluid noted behind the right TM, left TM normal Nose: Normal external nose present, Normal nares present and No nasal discharge present Face and sinus: Normal facial exam and Sinuses tender- ethmoid Mouth: Normal oral and palatal mucosa present and moist mucous membranes Throat: Yes tonsils normal, Yes uvula midline. Posterior oropharynx erythema Eyes: Appearance normal, both eyes and all related structures Neck: Normal visual inspection Respiratory: Clear to auscultation bilaterally. Normal respiratory effort, able to speak in complete sentences, Actively coughing, no respiratory distress, not tachypneic, no tripod positioning and no use of accessory muscles Cardiovascular: Regular rate and rhythm. Normal S1 and S2 Skin: No rashes or lesions noted Neuro: Patient oriented x3 Extremities: Normal to inspection and Yes no clubbing, cyanosis or edema PFSH Medical History Cough Tubular adenoma Shoulder pain, right GERD (gastroesophageal reflux disease) Dysplasia of cervix, low grade (TOMA 1) Pulmonary nodules Abnormal EKG Knee pain, left Abnormal Pap smear of cervix Osteoarthritis Anxiety, generalized Chronic GERD HIV positive Surgical History History of esophagogastroduodenoscopy (EGD) History of colonoscopy History of section History of bilateral tubal ligation Family History Father CVD (cardiovascular disease) Mother Arthritis Social History Housing: House Alcohol intake: never Patient Tobacco Use Status: Former Tobacco user Tobacco use type: Cigarette e-Cigarette/Vaping Use: Never Used service: No Current occupational status: employed and disabled Cognitive needs: No Hearing needs: No Vision needs: Yes Female Reproductive History Menstrual Age of Menarche: 11 Review of Systems Const All systems reviewed & are unremarkable except as noted in HPI and below Physical Exam Vital Signs: Last Vital Signs Temp 98.2 F 10/19/24 11:01 Pulse 81 10/19/24 11:01 BP 122/76 10/19/24 11:01 Pulse Ox 98 10/19/24 11:01 Oxygen Delivery Method Room Air 10/19/24 11:01 BMI result Body Mass Index 31.4 Office Procedures Nebulizer Treatment Nebulizer Treatment [id number]/MDI RX initial, or Nebulizer Subsequent Treatment Office Meds ipratropium 0.5 mg-albuterol 3 mg (2.5 mg base)/3 mL nebulization soln Performing Provider: Lucía Spain PA-C Performing Location[place] [facility] Administered by: Lucía Spain PA-C on 10/19/24 11:33 Dose Route Admin Location Dispensed Lot Number Expiration Date [employer] 3 mL inhalation 3 mL [id number] 12/07/25 80845-651-16 [employer] Assessment & Plan Assessment & Plan (1) Lower respiratory infection (e.g., bronchitis, pneumonia, pneumonitis, pulmonitis): Code(s): J22 - Unspecified acute lower respiratory infection Plan: The patient was diagnosed with an exacerbation of asthma 2/2 viral syndrome and a likely viral upper respiratory infection. Prednisone taper was initiated to manage shortness of breath, and Tessalon Perles were prescribed for cough suppression at night. Flonase nasal spray was recommended to address sinus sym ptoms. While in-clinic nebulizer treatment was administered with improvement in symptoms, issues regarding insurance coverage for her home nebulizer are being addressed by nursing staff today. Testing for flu, COVID-19, and RSV was planned due to recent exposure and persistent symptoms. No antibiotics were prescribed as clinical signs favored a viral cause. Patient was informed and verbally consented to the use of an ambient scribe for clinic note documentation during this visit (2) Asthma exacerbation, mild: Code(s): J45.901 - Unspecified asthma with (acute) exacerbation Plan: as above Orders: Orders AMB Nebulizer Treatment Today J22 - Unspecified acute lower respiratory infection SARS-CoV2/FLU/RSV Today J22 - Unspecified acute lower respiratory infection Medications: New benzonatate 200 mg PO TID PRN 10 caps 0RF cough methylprednisolone PO PER PKG DIR for 6 days 21 ea 0RF Coding Level of Care Code Est Pt Level 4 (41319) Diagnoses Lower respiratory infection (e.g., bronchitis, pneumonia, pneumonitis, pulmonitis) J22 Asthma exacerbation, mild J45.901 CPT Codes Nebulizer Treatment - Nebulizer Treatment, initial or subsequent: 78272- Nebulizer/MDI RX initial, or Nebulizer Subsequent Treatment ([id number])
[2024-10-19 11:01] VITALS: BP 122/76; PULSE 81; TEMP 36.8; O2SAT 98; BMI 31.4
== END 2024-10-19 13:33 | disposition home or self-care (01) ==
PROVIDERS: PCP Internal Medicine; Visit Provider Physician Assistant
DX: J22 Unspecified acute lower respiratory infection (principal); J45.901 Unspecified asthma with (acute) exacerbation

== ENCOUNTER 2024-10-19 10:38 | Outpatient (REF) | payer MEDICARE, MEDICAID, SELFPAY ==
[2024-10-19 14:00] LABS: Influenza A PCR NEGATIVE (Negative); Influenza B PCR NEGATIVE (Negative); Resp Syncy Virus RNA Qual PCR NEGATIVE (Negative); SARS COV2 PCR INHOUSE NEGATIVE (Negative)
== END 2024-10-19 10:39 | disposition home or self-care (01) ==
LOC: HO.LAB 10:38
PROVIDERS: PCP Internal Medicine; Visit Provider Physician Assistant
DX: J22 Unspecified acute lower respiratory infection (principal)
CPT/HCPCS: 0241U; 94640; 99212

== ENCOUNTER 2024-10-25 12:43 | Outpatient (REF) | payer MEDICARE, MEDICAID, SELFPAY ==
[2024-10-25 18:02] LABS: Influenza A PCR NEGATIVE (Negative); Influenza B PCR NEGATIVE (Negative); Resp Syncy Virus RNA Qual PCR NEGATIVE (Negative); SARS COV2 PCR INHOUSE POSITIVE (Negative)
== END 2024-10-25 12:44 | disposition home or self-care (01) ==
LOC: HO.LAB 12:43
PROVIDERS: Physician Assistant; PCP Internal Medicine
DX: Z13.89 Encounter for screening for other disorder (principal)
CPT/HCPCS: 0241U; 99212

== ENCOUNTER 2024-10-25 12:43 | Outpatient (AMB) | payer MEDICARE, MEDICAID, SELFPAY ==
[2024-10-25 13:37] VITALS: BP 118/78; PULSE 87; TEMP 37.4; O2SAT 96; BMI 31.0
--- NOTE | 2024-10-25 13:37 | AM.OFFWIN_ITS ---
Intake Vital Signs 10/25/24 13:37 Height 5 ft 1 in Weight 164 lb BMI 31.0 BP 118/78 Blood Pressure Location Lt brachial Position Sitting Pulse 87 Pulse Source Pulse Oximeter Temp 99.3 F Temp Source Oral Pulse Oximetry (%) 96 Oxygen Delivery Method Room Air Intake Visit Reasons: EP-cough, nausea, headaches, lost of appetite Intake Note: Pt is here today for a walk in visit. Pt c/o cough, nausea, headaches, chills, loss of appetite body aches. Pt states that she was seen past Tuesday in a walk in and was given medication. Patient Tobacco Use Status: Former Tobacco user Allergies aspirin [ASPIRIN] Allergy (Intermediate, Verified 10/25/24 13:42) HIVES, stomach upset codeine [CODEINE] Allergy (Intermediate, Verified 10/25/24 13:42) NAUSEA & VOMITING, drowsy, upset stomach ondansetron [Zofran] Allergy (Intermediate, Verified 10/25/24 13:42) headache Iodinated Contrast Media [IV Contrast Dye] Allergy (Verified 10/25/24 13:42) Unknown HPI HPI Comments History of Present Illness Details History The patient is a 63-year-old female presenting with a continued cough with associated symptoms. - She initially presented with a lower r espiratory infection and was treated with steroids, Tessalon Perles, and a nebulizer treatment. Despite completing medication, her symptoms initially improved but then worsened. - The patient's symptoms now include cou gh, nausea, headaches, runny and stuffy nose, and chills at night. Exposure to ill grandsons potentially led to the deterioration of symptoms. - There is a noted allergy to Zofran, ca using headaches. No record of recent RSV vaccination was noted. - The patient was previously advised for re-evaluation via a chest X-ray to rule out pneumonia due to the presence of shortness of breath and persistent symptoms. Physical Exam General: Cooperative, healthy appearing, comfortable and no acute distress Orientation/consciousness: Patient oriented x3 Limitations: No limitations Head: Normal to inspection Ears: Hearing grossly normal bilaterally, external ears normal and TM's normal bilaterally Nose: Stuffy nose, runny nose Face and sinus: Normal facial exam and Yes sinuses nontender Mouth: Normal oral and palatal mucosa present and moist mucous membranes Throat: Yes tonsils normal, Yes uvula midline. Posterior oropharynx erythema Eyes: Appearance normal, both eyes and all related structures Neck: Normal visual inspection Respiratory: Clear to auscultation bilaterally with a little funky sound in the left upper lobe. Normal respiratory effort, able to speak in complete sentences, Actively coughing, no respiratory distress, not tachypneic, no tripod positioning and no use of accessory muscles Cardiovascular: Regular rate and rhythm. Normal S1 and S2 Skin: No rashes or lesions noted Neuro: Patient oriented x3 Extremities: Normal to inspection and Yes no clubbing, cyanosis or edema [facility] Medical History Cough Tubular adenoma Shoulder pain, right GERD (gastroesophageal reflux disease) Dysplasia of cervix, low grade (TOMA 1) Pulmonary nodules Abnormal EKG Knee pain, left Abnormal Pap smear of cervix Osteoarthritis Anxiety, generalized Chronic GERD HIV positive Surgical History History of esophagogastroduodenoscopy (EGD) History of colonoscopy History of section History of bilateral tubal ligation Family History Father CVD (cardiovascular disease) Mother Arthritis Social History Housing: House Alcohol intake: never Patient Tobacco Use Status: Former Tobacco user Tobacco use type: Cigarette e-Cigarette/Vaping Use: Never Used service: No Current occupational status: employed and disabled Cognitive needs: No Hearing needs: No Vision needs: Yes Female Reproductive History Menstrual Age of Menarche: 11 Review of Systems Const All systems reviewed & are unremarkable except as noted in HPI and below Physical Exam Vital Signs: Last Vital Signs Temp 99.3 F 10/25/24 13:37 Pulse 87 10/25/24 13:37 BP 118/78 10/25/24 13:37 Pulse Ox 96 10/25/24 13:37 Oxygen Delivery Method Room Air 10/25/24 13:37 BMI result Body Mass Index 31.0 Assessment & Plan Assessment & Plan (1) Lower respiratory infection (e.g., bronchitis, pneumonia, pneumonitis, pulmonitis): Code(s): J22 - Unspecified acute lower respiratory infection Plan: The patient's ongoing symptoms such as a persistent cough and associated respiratory symptoms warrant further diagnostic evaluation. A chest X-ray will be performed to investigate potential pneumonia, and additional re-testing for flu, COVID-19, and RSV will be undertaken. Antinausea medication will be provided, and Tessalon Perles will be renewed for symptomatic relief. The administration of antibiotics will be contingent upon the determination of a bacterial infection such as PNA on CXR or if viral panel is negative, I will call in augmentin and zpak. Follow-up will occur following test results to establish further treatment steps. Patient was informed and verbally consented to the use of an ambient scribe for clinic note documentation during this visit Orders: Orders XR chest 2V Today R05.9 - Cough, unspecified SARS-CoV2/FLU/RSV Today R09.89 - Other specified symptoms and signs involving the circulatory and respiratory systems Medications: New ondansetron 4 mg PO Q8H PRN 10 tabs 0RF nausea and vomiting benzonatate 200 mg PO TID PRN 10 caps 0RF cough Coding Level of Care Code Est Pt Level 4 (99558) Diagnoses Lower respiratory infection (e.g., bronchitis, pneumonia, pneumonitis, pulmonitis) J22
== END 2024-10-25 14:16 | disposition home or self-care (01) ==
PROVIDERS: PCP Internal Medicine; Visit Provider Physician Assistant
DX: J22 Unspecified acute lower respiratory infection (principal)

== ENCOUNTER 2024-10-25 14:07 | Outpatient (REF) | payer MEDICARE, MEDICAID, SELFPAY ==
--- NOTE | ~2024-10-25 | XR_ITS ---
EXAMINATION: XR CHEST CLINICAL INFORMATION: R05.9 - Cough, unspecified COMPARISON: X-ray dated July 13, 2024. TECHNIQUE: 2 views of the chest were obtained. FINDINGS: No consolidation pleural effusion or pneumothorax. Cardiomediastinal silhouette is normal in size. Multilevel thoracic and upper lumbar spondylosis. Degenerative changes in the acromioclavicular joints. XR/XR chest 2V IMPRESSION: No acute airspace disease. Electronically signed by: Artur Méndez MD 10/25/2024 02:30 PM MARIAH ABDULLAHI
== END 2024-10-25 14:08 | disposition home or self-care (01) ==
LOC: HO.HMGCX 14:07
PROVIDERS: PCP Internal Medicine; Visit Provider Physician Assistant
DX: R05.9 Cough, unspecified (principal); J22 Unspecified acute lower respiratory infection
CPT/HCPCS: 0241U; 71046; 99212

== ENCOUNTER → 2024-10-25 14:13 | Outpatient (BNV) | payer MEDICARE, MEDICAID, SELFPAY | PROVIDERS: PCP Internal Medicine; Visit Provider Radiology Diagnostic Radiology | DX: R05.9 Cough, unspecified (principal) | CPT/HCPCS: 71046 ==

== ENCOUNTER 2025-01-15 10:54 | Outpatient (AMB) | payer MEDICARE, MEDICAID, SELFPAY ==
[2025-01-15 11:00] VITALS: BP 120/78; PULSE 88; O2SAT 98; BMI 31.4
--- NOTE | 2025-01-15 11:00 | MHC.PC.OV ---
Vital Signs 01/15/25 11:00 Height 5 ft 1 in Weight 166 lb BMI 31.4 BP 120/78 Blood Pressure Location Lt brachial Position Sitting Pulse 88 Pulse Source Pulse Oximeter Pulse Oximetry (%) 98 Intake Visit Reasons: 6 months f/up Allergies aspirin [ASPIRIN] Allergy (Intermediate, Verified 01/15/25 11:00) HIVES, stomach upset codeine [CODEINE] Allergy (Intermediate, Verified 01/15/25 11:00) NAUSEA & VOMITING, drowsy, upset stomach ondansetron [Zofran] Allergy (Intermediate, Verified 01/15/25 11:00) headache Iodinated Contrast Media [IV Contrast Dye] Allergy (Verified 01/15/25 11:00) Unknown Medication List - Last Reconciled 01/15/25 by Vicky Pearl MD albuterol sulfate 90 mcg/actuation 1 inh inhalation QID PRN atenolol 25 mg PO DAILY 90 days lqmsvzhvd-tztquigd-jjekpzy ala 50-200-25 mg (Biktarvy) 1 tab PO DAILY cholecalciferol (vitamin D3) 25 mcg PO DAILY 90 days cyclobenzaprine 10 mg PO BEDTIME esomeprazole magnesium 40 mg PO DAILY fluticasone propionate 50 mcg/actuation 1 spray intranasal DAILY gabapentin 200 mg (2 x 100 mg) PO BID hydroxyzine HCl 10 - 20 mg PO BEDTIME ipratropium-albuterol 0.5 mg-3 mg(2.5 mg base)/3 mL 3 mL inhalation TID 10 days meloxicam 15 mg PO DAILY ondansetron 4 mg PO Q8H PRN polyethylene glycol 3350 (Gavilax) 17 grams PO DAILY sucralfate 1 g PO DAILY triamcinolone acetonide 0.1% topical BEDTIME [Updraft machine As directed] valacyclovir 1,000 mg PO BID Tobacco use date assessed: 01/15/25 Fall risk assessment: No Falls in past year Last assessed Fall Risk: 01/15/25 Dental Screening Dental Screen Date: 01/15/25 Did you have a dental visit in the last 12 months?: Yes Did you have a dental problem in the last 6 months where you did not have access to dental care?: No Was dental information given to patient?: Patient has dentist HPI 6 months f/up HPI Details History - The patient is a 64-year-old female presenting with a follow-up appointment for chronic conditions management. - She has a history of primary osteoarthritis in the left knee, evaluated with x-ray in 2020 and described as worsening. She has been consulting with an research compliance specialist Was told that she is not ready for knee replacement as yet. - The patient continues to manage hypertension with Atenolol 25 mg. - Chronic muscle spasms, notably in the upper back, have been treated intermittently with muscle relaxants, reduced from 10 mg to 5 mg for optimal control. - She reports GERD and remains on medication. Through critical care unit nurse - Allergic rhinitis is treated with nasal spray. - HIV infection is under regular control, with ongoing treatment. Through Infectious Disease - Suspected nail fungus on the left big toe, considering a podiatry consultation. Meloxicam discontinued, hydroxyzine discontinued - continue valacyclovir for recurrent cold sores Problem List - Primary Osteoarthritis of the Left Knee - Hypertension (on Atenolol) through PCP - Muscle Spasms, muscle relaxer through PCP - Gastroesophageal Reflux Disease (GERD) through critical care unit nurse - Allergic Rhinitis, treatment through PCP - HIV Infection, treatment through Infectious Disease - Nail Fungus (possible onychomycosis), podiatry referral placed - Past use of Meloxicam with noted adverse effects on the gastrointestinal system - recurrent cold sores, valacyclovir through PCP Patient Instructions - Continue current medication regimen, including Atenolol, GERD medication, nasal spray, and HIV treatment. - Use the prescribed 5 mg muscle relaxant only as needed for muscle spasms. - Arrange for routine blood tests, including diabetes screening. - Monitor blood pressure regularly. - Consult with a naturopathic oncology provider for assessment of nail discoloration on the left big toe. - Keep track of any symptoms or changes, particularly related to knee pain and muscle spasms, and report them during the next visit. - Follow-up on knee assessment with [facility] and a potential x-ray if symptoms worsen. Review of Systems - General: No fever no chills - Neurological: No headaches no dizziness - Ear nose throat: No sore throat no hearing difficulty no ear pain - Cardiovascular: No syncope, no chest pain, no palpitations - Gastrointestinal: No nausea vomiting or diarrhea - Endocrine: No polyuria polydipsia no heat intolerance - Genitourinary: No dysuria , no blood in urine Physical Exam General: No acute distress HEENT: No acute findings Neck: Supple Respiratory system: Able to talk in full sentences, no audible wheeze Cardiovascular: S1-S2 regular in rate and rhythm Gastrointestinal: No pain Extremities: No new findings SENIOR RECEPTIONIST: Alert awake oriented x3 motor sensory intact Skin: Left big toe discolored, possible fungus PFSH Medical History Cough Tubular adenoma Shoulder pain, right GERD (gastroesophageal reflux disease) Dysplasia of cervix, low grade (TOMA 1) Pulmonary nodules Abnormal EKG Knee pain, left Abnormal Pap smear of cervix Osteoarthritis Anxiety, generalized Chronic GERD HIV positive Surgical History History of esophagogastroduodenoscopy (EGD) History of colonoscopy History of section History of bilateral tubal ligation Family History Father CVD (cardiovascular disease) Mother Arthritis Social History Housing: House Alcohol intake: never Patient Tobacco Use Status: Former Tobacco user Tobacco use type: Cigarette e-Cigarette/Vaping Use: Never Used service: No Current occupational status: employed and disabled Cognitive needs: No Hearing needs: No Vision needs: Yes Female Reproductive History Menstrual Age of Menarche: 11 Questionnaire PHQ-9 Over the last 2 weeks, how often have you been bothered by any of the following problems? 1. Little interest or pleasure in doing things: not at all 2. Feeling down, depressed, or hopeless: not at all 3. Trouble falling or staying asleep, or sleeping too much: not at all 4. Feeling tired or having little energy: not at all 5. Poor appetite or overeating: not at all 6. Feeling bad about yourself - or that you are a failure or have let yourself or your family down: not at all 7. Trouble concentrating on things, such as reading the newspaper or watching television: not at all 8. Moving or speaking so slowly that other people could have noticed. Or the opposite - being so fidgety or restless that you have been moving around a lot more than usual: not at all 9. Thoughts that you would be better off or of hurting yourself in some way: not at all Total score: 0 Depression Screening Interpretation: Negative Depression Screening Done: Yes 17080 - PHQ-9 Billing: Yes Source: Developed by Drs. Miguel Ángel Toth, Georgia Ferrari, Ryan Funez and colleagues, with an educational bart from [employer]. Thrive Questionnaire Date Thrive assessed: 01/15/25 I am a: Patient What is your living situation today?: I have a steady place to live Within the past 12 months, did the food you bought not last and you didn't have the money to get more?: Never true Within the past 12 months, did you worry whether your food would run out before you got money to buy more?: Never true Do you have trouble paying for medicines?: No Do you have trouble getting transportation to medical appointments?: No Do you have trouble paying your heating and electricity bill?: No Do you have trouble taking care of your child, family member or friend?: No Do you have trouble with day-to-day activities such as bathing, preparing meals, shopping, managing finances, etc.?: No Are you currently unemployed and looking for a job?: No Are you interested in more education?: No Please select the resources that you would like help with: None Currently or been in a relationship where the following occur: No concerns reported THRIVE Score: 0 AUDIT C Alcohol Use Questionnaire (AUDIT-C) 1. How often do you have a drink containing alcohol?: Never 3. How often do you have six or more drinks on one occasion?: Never Total Score: 0 Score Reviewed/Action Taken: Yes IAN-7 AMB Questionnaire IAN-7 Date IAN - 7 assessed: 01/15/25 Feeling nervous, anxious, or on edge: 0 = Not at all Not being able to stop or control worryin = Not at all Worrying too much about different things: 0 = Not at all Trouble relaxin = Not at all Being so restless that it is hard to sit still: 0 = Not at all Becoming easily annoyed or irritable: 0 = Not at all Feeling afraid as if something awful might happen: 0 = Not at all Total IAN-7 score (0-4 normal; 5-9 mild; 10-14 moderate; 15-21 severe): 0 Source: Developed by Drs. Miguel Ángel Toth, Georgia Ferrari, Ryan Funez and colleagues, with an educational bart from [employer]. IAN-7 Assessment Billing IAN-7 Assessment Tool: IAN-7 Assessment 33476 Physical exam (Primary Care) Vital Signs: Last Vital Signs Pulse 88 01/15/25 11:00 BP 120/78 01/15/25 11:00 Pulse Ox 98 01/15/25 11:00 BMI result Body Mass Index 31.4 Tobacco/Smoking Status: Tobacco use Status Tobacco use date assessed 01/15/25 01/15/25 11:02 Patient Tobacco Use Status Former Tobacco user 01/15/25 11:02 Tobacco use type Cigarette 01/15/25 11:02 e-Cigarette/Vaping Use Never Used 01/15/25 11:02 PHQ-9: PHQ-9 Score PHQ-9: Total score 0 01/15/25 11:28 Depression Screening Interpretation: Negative Thrive Assessment: Date of Thrive Assessment Date Thrive assessed 01/15/25 01/15/25 11:02 Currently or been in a relationship where the following occur: No concerns reported Coding Level of Care Code Est Pt Level 4 (57921) Complex EM visit Add On G2211 Diagnoses Hypertension, essential I10 Toe pain, left M79.675 Anxiety, generalized F41.1 Primary osteoarthritis of both knees M17.0 Laterality: bilateral Osteoarthritis location: knee Osteoarthritis type: primary HIV positive Z21 Chronic GERD K21.9 Gastroesophageal reflux disease without esophagitis K21.9 Esophagitis presence: without esophagitis Mid back pain on right side M54.9 Allergic rhinitis, unspecified seasonality, unspecified trigger J30.9 Allergic rhinitis seasonality: unspecified Allergic rhinitis trigger: unspecified Vitamin D deficiency E55.9 Recurrent cold sores B00.1 Additional Codes IAN-7 Assessment Billing - IAN-7 Assessment Tool: IAN-7 Assessment 51385 ([id number]) PHQ-9 - 38735 - PHQ-9 Billing: Yes ([id number]) Assessment & Plan Assessment & Plan (1) Hypertension, essential: Code(s): I10 - Essential (primary) hypertension Category: Medical (2) Toe pain, left: Code(s): M79.675 - Pain in left toe(s) Category: Medical (3) Anxiety, generalized: Code(s): F41.1 - Generalized anxiety disorder Category: Medical (4) Osteoarthritis: Code(s): M19.90 - Unspecified osteoarthritis, unspecified site Category: Medical Qualifiers: Laterality: bilateral Osteoarthritis location: knee Osteoarthritis type: primary Qualified Code(s): M17.0 - Bilateral primary osteoarthritis of knee (5) HIV positive: Code(s): Z21 - Asymptomatic human immunodeficiency virus [HIV] infection status Category: Medical (6) Chronic GERD: Code(s): K21.9 - Gastro-esophageal reflux disease without esophagitis Category: Medical (7) GERD (gastroesophageal reflux disease): Code(s): K21.9 - Gastro-esophageal reflux disease without esophagitis Category: Medical Qualifiers: Esophagitis presence: without esophagitis Qualified Code(s): K21.9 - Gastro-esophageal reflux disease without esophagitis (8) Mid back pain on right side: Code(s): M54.9 - Dorsalgia, unspecified Category: Medical (9) Allergic rhinitis: Code(s): J30.9 - Allergic rhinitis, unspecified Category: Medical Qualifiers: Allergic rhinitis seasonality: unspecified Allergic rhinitis trigger: unspecified Qualified Code(s): J30.9 - Allergic rhinitis, unspecified (10) Vitamin D deficiency: Code(s): E55.9 - Vitamin D deficiency, unspecified Category: Medical (11) Recurrent cold sores: Code(s): B00.1 - Herpesviral vesicular dermatitis Category: Medical Plan History - The patient is a 64-year-old female presenting with a follow-up appointment for chronic conditions management. - She has a history of primary osteoarthritis in the left knee, evaluated with x-ray in 2020 and described as worsening. She has been consulting with an research compliance specialist Was told that she is not ready for knee replacement as yet. - The patient continues to manage hypertension with Atenolol 25 mg. - Chronic muscle spasms, notably in the upper back, have been treated intermittently with muscle relaxants, reduced from 10 mg to 5 mg for optimal control. - She reports GERD and remains on medication. Through critical care unit nurse - Allergic rhinitis is treated with nasal spray. - HIV infection is under regular control, with ongoing treatment. Through Infectious Disease - Suspected nail fungus on the left big toe, considering a podiatry consultation. Meloxicam discontinued, hydroxyzine discontinued - continue valacyclovir for recurrent cold sores Problem List - Primary Osteoarthritis of the Left Knee - Hypertension (on Atenolol) through PCP - Muscle Spasms, muscle relaxer through PCP - Gastroesophageal Reflux Disease (GERD) through critical care unit nurse - Allergic Rhinitis, treatment through PCP - HIV Infection, treatment through Infectious Disease - Nail Fungus (possible onychomycosis), podiatry referral placed - Past use of Meloxicam with noted adverse effects on the gastrointestinal system - recurrent cold sores, valacyclovir through PCP Patient Instructions - Continue current medication regimen, including Atenolol, GERD medication, nasal spray, and HIV treatment. - Use the prescribed 5 mg muscle relaxant only as needed for muscle spasms. - Arrange for routine blood tests, including diabetes screening. - Monitor blood pressure regularly. - Consult with a naturopathic oncology provider for assessment of nail discoloration on the left big toe. - Keep track of any symptoms or changes, particularly related to knee pain and muscle spasms, and report them during the next visit. - Follow-up on knee assessment with [facility] and a potential x-ray if symptoms worsen. Orders: Orders LDL Cholesterol Direct Today F41.1 - Generalized anxiety disorder, I10 - Essential (primary) hypertension, K21.9 - Gastro-esophageal reflux disease without esophagitis, M17.11 - Unilateral primary osteoarthritis, right knee, M19.90 - Unspecified osteoarthritis, unspecified site, M54.12 - Radiculopathy, cervical region, M54.31 - Sciatica, right side, M54.9 - Dorsalgia, unspecified, Z21 - Asymptomatic human immunodeficiency virus [HIV] infection status Hemoglobin A1c Today F41.1 - Generalized anxiety disorder, I10 - Essential (primary) hypertension, K21.9 - Gastro-esophageal reflux disease without esophagitis, M17.11 - Unilateral primary osteoarthritis, right knee, M19.90 - Unspecified osteoarthritis, unspecified site, M54.12 - Radiculopathy, cervical region, M54.31 - Sciatica, right side, M54.9 - Dorsalgia, unspecified, Z21 - Asymptomatic human immunodeficiency virus [HIV] infection status Complete Blood Count Auto Diff Today F41.1 - Generalized anxiety disorder, I10 - Essential (primary) hypertension, K21.9 - Gastro-esophageal reflux disease without esophagitis, M17.11 - Unilateral primary osteoarthritis, right knee, M19.90 - Unspecified osteoarthritis, unspecified site, M54.12 - Radiculopathy, cervical region, M54.31 - Sciatica, right side, M54.9 - Dorsalgia, unspecified, Z21 - Asymptomatic human immunodeficiency virus [HIV] infection status Comprehensive Met. Panel Today F41.1 - Generalized anxiety disorder, I10 - Essential (primary) hypertension, K21.9 - Gastro-esophageal reflux disease without esophagitis, M17.11 - Unilateral primary osteoarthritis, right knee, M19.90 - Unspecified osteoarthritis, unspecified site, M54.12 - Radiculopathy, cervical region, M54.31 - Sciatica, right side, M54.9 - Dorsalgia, unspecified, Z21 - Asymptomatic human immunodeficiency virus [HIV] infection status Referrals Podiatry Referral M79.675 - Pain in left toe(s) Medications: Changed From cyclobenzaprine 10 mg PO BEDTIME To cyclobenzaprine 5 mg PO BEDTIME 30 tabs 2RF Muscle spasms 30 days
--- OUTSIDE RECORDS SUMMARY | 2025-01-15 13:17 | XMS_ITS | Clinical Summary ---
Author Organization [facility] Address [id number] [place] [id number] Care Team Providers Care Vibrating Screed Operator Name Role Phone Unavailable Primary Care Provider Unavailabl e Social History Tobacco Use Types Packs/Day Years Used Date Smoking Tobacco: Never Assessed Comments Unknown Sex and Gender Information Value Date Recorded Sex Assigned at Not on file Legal Sex Female 10:04 AM EST Gender Identity Not on file Sexual Orientation Not on file Obstetrics History Last Filed Vital Signs Vital Sign Reading Time Taken Comments Blood Pressure 110/62 03/16/2022 9:56 AM EDT L A rm Pulse 70 03/16/2022 9:56 AM EDT Temperature - - Respiratory Rate - - Oxygen Saturation - - Inhaled Oxygen Concentration - - Weight - - Height - - Body Mass Index - - Plan of Treatment Health Maintenance Due Date Last Done Comments Breast Cancer Screening 1960 DTaP,Tdap,and Td Vaccines (1 - Tdap) 12/15/1979 Cervical Cancer Screening: P ap Smear 1981 Pneumococcal Vaccine: 50+ Ye ars (1 of 1 - PCV) 2010 Zoster Vaccines (1 of 2) 2010 Colorectal Cancer Screening: Colonoscopy 09/07/2022 Depression Screening 09/07/2022 HIV Screening 09/07/2022 Hepatitis C Screening 09/07/2022 Social Influencers of Health Screening 09/07/2022 COVID-19 Vaccine ( - 2023-2 5 season) 2024 Influenza Vaccine (#1) 2024 RSV Immunization Adult Patie nts (1 - 1-dose 75+ series) 12/15/2035 HIB Vaccines Aged Out No longer eligi ble based on patient's age to complete this topic HPV Vaccines Aged Out No longer eligi ble based on patient's age to complete this topic Hepatitis A Vaccines Aged Out No long er eligible based on patient's age to complete this topic Hepatitis B Vaccines Aged Out No long er eligible based on patient's age to complete this topic IPV Vaccines Aged Out No longer eligi ble based on patient's age to complete this topic MMR Vaccines Aged Out No longer eligi ble based on patient's age to complete this topic Meningococcal ACWY Vaccine Aged Out N o longer eligible based on patient's age to complete this topic Meningococcal B Vaccine Aged Out No l onger eligible based on patient's age to complete this topic Pneumococcal Vaccine: Pediat rics (0 to 5 Years) and At-Risk Patients (6 to 64 Years) Aged Out No longer eligible b ased on patient's age to complete this topic RSV Immunization Patients Un slick 20 months Aged Out No longer eligible b ased on patient's age to complete this topic Varicella Vaccines Aged Out No longer eligible based on patient's age to complete this topic
== END 2025-01-15 11:18 | disposition home or self-care (01) ==
LOC: HO.HMCC 10:54
PROVIDERS: PCP Internal Medicine; Visit Provider Internal Medicine
DX: I10 Essential (primary) hypertension (principal); Z21 Asymptomatic human immunodeficiency virus [HIV] infection status; M79.675 Pain in left toe(s); F41.1 Generalized anxiety disorder; M17.0 Bilateral primary osteoarthritis of knee; K21.9 Gastro-esophageal reflux disease without esophagitis; M54.9 Dorsalgia, unspecified; J30.9 Allergic rhinitis, unspecified; E55.9 Vitamin D deficiency, unspecified; B00.1 Herpesviral vesicular dermatitis

== ENCOUNTER 2025-01-15 10:54 | Outpatient (REF) | payer MEDICARE, MEDICAID, SELFPAY ==
[2025-01-15 13:08] LABS: MANUAL DIFF FLAG NO
[2025-01-15 13:33] LABS: Basophils Percent Auto 0.5 % (0-2); Eosinophils Absolute Auto 0.1 X10*3/uL (0.0-0.4); Eosinophils Percent Auto 1.9 % (0-4); Hematocrit 38.1 % (37.0-47.0); Hemoglobin 12.4 g/dl (12.0-16.0); Imm Gran Abs Auto 0.02 X10*3/uL (0.00-0.03); Imm Gran Pct Auto 0.5 % (0.0-0.4); Lymphocytes Absolute Auto 0.9 X10*3/uL (1.2-4.9); Lymphocytes Percent Auto 23.2 % (20-40); Mean Corpuscular HGB Conc 32.5 g/dl (31.0-35.0); Mean Corpuscular Hemoglobin 29.5 pg (27.0-33.0); Mean Corpuscular Volume 90.7 fL (80.0-98.0); Mean Platelet Volume 11.2 fL (9.4-12.3); Monocytes Absolute Auto 0.3 X10*3/uL (0.1-1.2); Monocytes Percent Auto 9.3 % (2-11); Neutrophils Absolute Auto 2.4 x10*3/uL (2.0-8.3); Neutrophils Percent Auto 64.6 % (45-73); Platelet Count 258 X10*3/uL (160-400); Red Cell Distribution Width 12.6 % (11.0-16.0); White Blood Count 3.7 X10*3/uL (4.8-10.8)
--- OUTSIDE RECORDS SUMMARY | 2025-01-15 13:55 | XMS_ITS | Clinical Summary ---
Author Organization [facility] Address [id number] [place] [phone] Care Team Providers Care Sole Molding Machine Operator Name Role Phone Unavailable Primary Care [...]
[2025-01-15 14:00] LABS: Estimated Average Glucose 114 mg/dL; Hemoglobin A1C 125.9524 umol/L; Hemoglobin A1c % 5.6 % (<6.0); Total Hemoglobin (HGBA1C) 3328.7498 umol/L
[2025-01-15 14:21] LABS: Alanine Aminotransferase 12 U/L (0-31); Albumin Level 4.2 g/dL (3.5-5.0); Alkaline Phosphatase 68 U/L (39-117); Anion Gap 10 (12-20); Aspartate Amino Transferase 28 U/L (5-31); Bilirubin Total 0.4 mg/dL (0.0-1.0); Blood Urea Nitrogen 16 mg/dL (9-16); Calcium 9.3 mg/dL (8.4-10.2); Carbon Dioxide 29 mmol/L (22-29); Chloride 106 mmol/L (96-108); Estimated Glomerular Filt Rate > 60; Glucose Random 94 mg/dL (60-115); Potassium 4.3 mmol/L (3.3-5.1); Sodium 141 mmol/L (135-145)
[2025-01-16 17:23] LABS: LDL Cholesterol Direct 111 mg/dL (<100)
== END 2025-01-15 10:55 | disposition home or self-care (01) ==
LOC: HO.HMGCLDS 10:54
PROVIDERS: PCP Internal Medicine; Visit Provider Internal Medicine
DX: I10 Essential (primary) hypertension (principal); M79.675 Pain in left toe(s); F41.1 Generalized anxiety disorder; M17.0 Bilateral primary osteoarthritis of knee; Z21 Asymptomatic human immunodeficiency virus [HIV] infection status; K21.9 Gastro-esophageal reflux disease without esophagitis; M54.9 Dorsalgia, unspecified; J30.9 Allergic rhinitis, unspecified; E55.9 Vitamin D deficiency, unspecified; B00.1 Herpesviral vesicular dermatitis; M54.31 Sciatica, right side; M54.12 Radiculopathy, cervical region; Z13.1 Encounter for screening for diabetes mellitus
CPT/HCPCS: 36415; 80053; 83036; 83721; 85025; 96127; 99212

== ENCOUNTER 2025-05-06 13:38 | Outpatient (AMB) | payer MEDICARE, MEDICAID, SELFPAY ==
--- NOTE | 2025-05-06 13:45 | A.OFFVIS_ITS ---
Vital Signs 05/06/25 13:48 Height 5 ft 1 in Weight 165 lb BMI 31.2 BP 132/80 Blood Pressure Location Rt brachial Position Sitting Pulse 70 Pulse Source Pulse Oximeter Pulse Oximetry (%) 97 Oxygen Delivery Method Room Air Intake Visit Reasons: Dysphagia f/u r/s 12/04/24 Intake Note: ESTABLISHED PATIENT for mgmt of dysphagia Chief Complaint; C.O. inquiry for alternative to gavilax. Pt stopped taking due to not being able to tolerate it. 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 Avoid dietary triggers and late night snacking. Staying upright for minimum 3 hours after meals discussed with patient. Follow-up in 4 months, sooner on as needed basis. She is agreeable to this plan and verbalizes understanding of instructions. Patient was given the opportunity to ask questions and all questions answered. ? TODAY'S VISIT Patient is here today for follow-up. Patient reports that she is taking Nexium in the morning and her symptoms of acid reflux are suppressed. Patient is no longer taking sucralfate at bedtime. Patient denies dyspepsia, dysphagia or odynophagia. Patient reports that she is moving her bowels, however she does not feel like she empties them completely. Patient is no longer taking MiraLax. Patient denies any abdominal pain or discomfort. Denies melena, hematochezia. Patient will be due to go for colonoscopy in May of next year. [facility] Medical History Cough Tubular adenoma Shoulder pain, right GERD (gastroesophageal reflux disease) Dysplasia of cervix, low grade (TOMA 1) Pulmonary nodules Abnormal EKG Knee pain, left Abnormal Pap smear of cervix Osteoarthritis Anxiety, generalized Chronic GERD HIV positive Surgical History History of esophagogastroduodenoscopy (EGD) History of colonoscopy History of section History of bilateral tubal ligation Family History Father CVD (cardiovascular disease) Mother Arthritis Social History Housing: House Alcohol intake: never Patient Tobacco Use Status: Former Tobacco user Tobacco use type: Cigarette e-Cigarette/Vaping Use: Never Used service: No Current occupational status: employed and disabled Cognitive needs: No Hearing needs: No Vision needs: Yes Female Reproductive History Menstrual Age of Menarche: 11 Review of Systems Const Denies weight gain and Denies weight loss ENT Reports no additional complaints, Denies dysphagia and Denies odynophagia Card Reports no additional complaints Resp Reports no additional complaints GI Denies abdominal pain, Denies belching, Denies melena, Denies bloating, Denies change in bowel habits, Denies dysphagia, Denies excessive flatus, Denies dyspepsia, Denies heartburn, Denies diarrhea, Denies loose stools, Denies nausea, Denies odynophagia and Denies vomiting Musc Reports no additional complaints Neuro Reports no additional complaints Psych Reports no additional complaints Endo Reports no additional complaints Physical Exam Vital Signs: Last Vital Signs Pulse 70 05/06/25 13:48 BP 132/80 05/06/25 13:48 Pulse Ox 97 05/06/25 13:48 Oxygen Delivery Method Room Air 05/06/25 13:48 BMI result Body Mass Index 31.2 Const General: healthy appearing and no acute distress Nutritional Appearance: obese Orientation/consciousness: patient oriented x3 Resp Effort & Inspection: normal respiratory effort, able to speak in complete sentences, no tracheal deviation and symmetric chest movement Auscultation: clear to auscultation bilaterally Cardio Rate: regular rate Heart sounds: S1 normal heart sound present and S2 normal heart sound present GI Inspection: Yes normal to inspection, No distended and Yes obesity Palpation (GI): Soft to palpation, not firm, nontender and No hepatosplenomegaly present Auscultation: normal bowel sounds General: Yes no CVA tenderness Back/Spine/Pelvis Back: no CVA tenderness Skin General skin exam: elasticity normal, turgor normal and dry skin Neuro General: patient oriented x3 Psych Appearance: grossly normal Mental Status: mental status grossly normal Assessment & Plan Assessment & Plan (1) Nausea: Code(s): R11.0 - Nausea Category: Medical (2) GERD (gastroesophageal reflux disease): Code(s): K21.9 - Gastro-esophageal reflux disease without esophagitis Category: Medical Qualifiers: Esophagitis presence: without esophagitis Qualified Code(s): K21.9 - Gastro-esophageal reflux disease without esophagitis (3) LFT elevation: Code(s): R79.89 - Other specified abnormal findings of blood chemistry Category: Medical (4) Abdominal pain: Code(s): R10.9 - Unspecified abdominal pain Category: Medical Qualifiers: Abdominal location: left upper quadrant Qualified Code(s): R10.12 - Left upper quadrant pain Plan Continue taking Nexium in the morning. Avoid dietary triggers and late night snacking. Staying upright for minimum 3 hours after meals discussed with patient. Patient will increase fluid intake and activity to promote better bowel motility. Patient will start taking Colace as needed and increase fiber intake. Follow-up in 6 months, sooner on as needed basis. Patient is agreeable to this plan and verbalizes understanding of instructions. She was given the opportunity to ask questions and all questions answered. Thank you for allowing me to participate in her care Medications: New docusate sodium 100 mg PO BEDTIME 90 caps 3RF K59.00 - Constipation, unspecified Refilled esomeprazole magnesium 40 mg PO DAILY 90 caps 2RF Coding Level of Care Code Est Pt Level 3 (08038) Diagnoses Nausea R11.0 Gastroesophageal reflux disease without esophagitis K21.9 Esophagitis presence: without esophagitis LFT elevation R79.89 Left upper quadrant abdominal pain R10.12 Abdominal location: left upper quadrant Time Spent (min) 25 Comment 15 minutes spent with patient and additional 10 minutes spent reviewing her records
[2025-05-06 13:48] VITALS: BP 132/80; PULSE 70; O2SAT 97; BMI 31.2
--- OUTSIDE RECORDS SUMMARY | 2025-05-06 14:19 | XMS_ITS | Data Portability ---
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 Hernandez who was available but who did not see the patient. HPI: Patient presents today follow-up regarding their Left knee. They have had difficulty up and down stairs sitting standing. Previous injection gave good relief until recent. Problems ambulating. Ntyv-jmm-jfkbdna medications are helping somewhat but not significantly. Pain is constant aching sometimes sharp pain with giving out sensations. Past family, medical, social history and review of systems has been reviewed, updated and is located in the patient s chart. Examination: The patient is well appearing and in no apparent distress. Alert and oriented x3. Gait is symmetric. Examination of the Left knee reveals no evidence of any edema, erythema, or warmth. No Deformity. Range of motion of the knee limited with mild discomfort at the end ranges. Mild effusion. Does have some tenderness to palpation about the medial hemijoint line. No tenderness to palpation about the lateral hemijoint line. Patellofemoral crepitus is noted. mild lateral ligamentous laxity. Negative Zoë s. Calf is supple and nontender. Neurovascularly intact distally. Impression: Left Knee osteoarthritis Plan: We discussed the role of conservative management including medications, physical therapy, injection and bracing. At this point the patient was to proceed with injection. Please see procedure note. They will follow up with us as scheduled. ava Not available 03/07/2024 10:27:10 06/05/2024 06/05/2024 I am seeing the patient today under the supervision of Dr. Hernandez who was available but who did not see the patient. HPI: Patient presents today follow-up regarding their Left knee. They have had difficulty up and down stairs sitting standing. Previous injection gave good relief until recent. Problems ambulating. Yrte-tks-blhvpsp medications are helping somewhat but not significantly. Pain is constant aching sometimes sharp pain with giving out sensations. Past family, medical, social history and review of systems has been reviewed, updated and is located in the patient s chart. Examination: The patient is well appearing and in no apparent distress. Alert and oriented x3. Gait is symmetric. Examination of the Left knee reveals no evidence of any edema, erythema, or warmth. No Deformity. Range of motion of the knee limited with mild discomfort at the end ranges. Mild effusion. Does have some tenderness to palpation about the medial hemijoint line. No tenderness to palpation about the lateral hemijoint line. Patellofemoral crepitus is noted. mild lateral ligamentous laxity. Negative Zoë s. Calf is supple and nontender. Neurovascularly intact distally. Impression: Left Knee osteoarthritis Plan: We discussed the role of conservative management including medications, physical therapy, injection and bracing. At this point the patient was to proceed with injection. Please see procedure note. They will follow up with us as scheduled. [email or web address] Not available 06/05/2024 11:22:11 09/05/2024 09/05/2024 I am seeing the patient today under the supervision of flash who was available but who did not see the patient. HPI: Patient presents today regarding their L knee. They have had difficulty up and down stairs sitting standing. Problems ambulating. Aeff-bhc-nhzcsdb medications are helping somewhat but not significantly. Pain is constant aching sometimes sharp pain with giving out sensations. Past family, medical, social history and review of systems has been reviewed, updated and is located in the patient s chart. Examination: The patient is well appearing and in no apparent distress. Alert and oriented x3. Gait is symmetric. Examination of the L knee reveals no evidence of any edema, erythema, or warmth. no Deformity. Range of motion of the knee limited with mild discomfort at the end ranges. Mild effusion. Does have some tenderness to palpation about the medial hemijoint line. No tenderness to palpation about the lateral hemijoint line. Patellofemoral crepitus is noted. mild lateral ligamentous laxity. Negative Zoë s. Calf is supple and nontender. Neurovascularly intact distally. 4 X-ray views of the knee were independently reviewed today showed narrowing of the medial compartment of the L knee. With slight osteophyte formation. Narrowing is noted of patellofemoral joint as well. No evidence of any other bony lesions or pathology. Impression:L Knee osteoarthritis Plan: We discussed the role of conservative management including medications, physical therapy, injection and bracing. At this point the patient was to proceed with injection. Please see procedure note. They will follow up with us as scheduled. ava Not available 09/05/2024 13:27:17 12/05/2024 12/05/2024 I am seeing the patient today under the supervision of Dr Hernandez who was available but who did not see the patient. matt Not available 12/05/2024 13:25:56 03/20/2025 03/20/2025 I am seeing the patient today under the supervision of Dr Hernandez who was available but who did not see the patient. matt Not available 03/20/2025 13:23:51 Plan of Treatment Reminders Order Date Submit Date Provider Last Modified By Organization Details Last Modified Time Details Appointments RECHECK 15 2024 01:15P Radha Farah PA-C Not available Not available Not available Lab None recorded . Referral None recorded . Procedures None recorded . Surgeries None recorded . Imaging XR, knee, 4 or more view - rm 314 4v left knee 2023 024 [facility], [address], [address], [place], [address], 09/05/2024 14:13:13 Medication Orders None recorded . Patient TargetsNo targets recorded. Patient InstructionsNo instructions recorded. Reason for Referral None Reported. Results Created Date Observation Date Name Description Value Unit Range Abnormal Flag Note LastModifiedBy Organization Detail LastModifiedTime 06/08/20 24 11/03/2020 imagi ng/di agnos tic resul t No observ ation record ed. [email or web address] Not Available 05/12 23:50:15 09/05/2009/05/2024 XR, knee, 4 or more view [email or web address] ?Encry pted=s hAaTro YD8dLq bEUv6g %2BXZw aYqtaq 0bqfl% 2Fg9IQ a4ajBk vP9nXo QUaueC m3YtLR FvZlgJ JJ8mAn tai3 7i7948 AC0Kqa XiAVaq uKiQtr MwF INTERFACE [facility] [address], [place], [address], 09/05/2024 13:19:50 09/05/20 24 09/05/2024 XR, knee, 4 or more view [email or web address] ?Encry pted=s hAaTro YD8dLq bEUv6g %2BXZw aYqtaq 0bqfl% 2Fg9IQ a4ajBk vP9nXo QUaueC m3YtLR FvZl [facility] 0m8490 AC0Kqa XiAVaq uKiQtr MwF INTERFACE [facility] [address] [facility] [address], [place], [address], 09/05/2024 13:19:52 Result Notes Documentation Provider Name and Address Organization Details Recorded Time Xr, Knee, 4 Or More View : [email or web address] Encrypted=urDuDiuON1xBmiN Uv6g%7RKTobFaicp9hesv%2Fg 5BCg2wgMhbG0jXgTJzetPf6Ns ALYqHlvBHO8cVeOHdmu31z954 9EA2VnoGpNArpaMfSrwOaB Not Available [facility] 09/05/2024 13:19: 51 Xr, Knee, 4 Or More View : [email or web address] Encrypted=eiMmHqkGF3iHnwH Uv6g%9NHZtnNvgat4drse%2Fg 5FAu0nlIlyE2wBfHOlscFf6Ot RHNsHccQCZ3kTcWYwzg01s146 4OW3ZeoMbWBxgwHtFvxAlY Not Available [facility] 09/05/2024 13:19: 52 Problems Name Problem SNOMED Code Status Onset Date Resolution Date Notes Provider Name and Address Organization Details Recorded Time No complaints 828559574 Active Status : 'I'; Not Available [facility] 4 09:11:53 Osteoarthr itis of knee 601264202 [facility] 4 11:57:49 Osteoarthr itis of left knee joint 9572809161991 09 Active 2024 Venancio Caldera PA-C [address], [place], [address] , [facility] 5 13:26:02 Problem Notes None recorded. Procedures Surgical History Date Name Laterality Status Provider Name and Address Organization Details Recorded Time 03/20/2025 JZKNEE INJ completed Venancio Caldera PA-C [address], [place], [address], [facility] 03/20/2025 13:23:47 12/05/2024 JZKNEE INJ completed Venancio Caldera PA-C [address], [place], [address], [facility] 12/05/2024 13:25:51 09/05/2024 JZKNEE INJ completed Venancio Caldera PA-C [address], [place], [address], [facility] 09/05/2024 13:27:12 06/05/2024 JZKNEE INJ completed Venancio Caldera PA-C [address], [place], [address], [facility] 06/05/2024 11:22:34 03/07/2024 JZKNEE INJ completed Venancio Caldera PA-C [address] [facility] [address], [place], [address], [facility] 03/07/2024 10:27:12 Imaging Results None recorded. Procedure Notes None recorded. Medical Equipment None Reported. Allergies Allergen ID Allergen Name Allergen Category Reaction Reaction Severity Criticality Documentation Date Start Date Code Code System Note Provider Name and Address Organization Details Recorded Time 107765 codeine sulfate medicatio n Not available Not available Not available 12/12/20232013 53594 RxNorm Not Available [facility] 4 15:27:02 947587 aspirin medicatio n Not available Not available Not available 12/12/20232013 1191 RxNorm Not Available [facility] 4 15:27:02 Medications Name Sig Start Date Stop Date Status Note LastModified by Organization Details LastModified Time cyclobenzap rine 10 mg tablet TAKE 1 TABLET BY MOUTH EVERY DAY AT BEDTIME NEEDED FOR MUSCLE SPASMS active Not Available Not Available No t Available azithromyci n 250 mg tablet TAKE 2 TABLETS BY MOUTH TODAY, THEN TAKE 1 TABLET DAILY FOR 4 DAYS DIRECTED 03/20 completed Not Available Not Available Not Available benzonatate 200 mg capsule TAKE 1 CAPSULE BY MOUTH THREE TIMES A DAY NEEDED FOR COUGH 03/20 completed Not Available Not Available Not Available valacyclovi r 1 gram tablet TAKE 1 TABLET BY MOUTH EVERY DAY active Not Available Not Available No t Available meloxicam 15 mg tablet TAKE 1 TABLET BY MOUTH EVERY DAY active Not Available Not Available No t Available sucralfate 1 gram tablet TAKE 1 TABLET BY MOUTH AT BEDTIME AT BEDTIME active Not Available Not Available No t Available prednisone 20 mg tablet TAKE 3 TABLETS DAILY FOR 3 DAYS, THEN 2 TABLETS DAILY FOR 3 DAYS, THEN 1 TABLET DAILY FOR 3 DAYS 03/20 completed Not Available Not Available Not Available atenolol 25 mg tablet TAKE 1 TABLET BY MOUTH EVERY DAY active Not Available Not Available No t Available benzonatate 100 mg capsule TAKE 1 CAPSULE BY MOUTH TWICE A DAY NEEDED FOR COUGH 03/07 completed Not Available Not Available Not Available pantoprazol e 40 mg tablet,marbella yed release TAKE 1 TABLET (40MG) BY MOUTH DAILY 03/07 completed Not Available Not Available Not Available esomeprazol e magnesium 40 mg capsule,del ayed release TAKE 1 CAPSULE BY MOUTH EVERY DAY 30 MINUTES TO 1 HOUR BEFORE A MEAL active Not Available Not Available No t Available triamcinolo ne acetonide 0.1 % topical ointment APPLY TO AFFECTED AREA ON BUTTOCKS TWICE DAILY FOR TWO WEEKS, BREAK ONE WEEK, REPEAT NEEDED active Not Available Not Available No t Available metronidazo le 0.75 % topical cream APPLY TO THE FACE ONCE DAILY FOR MAINTENAN CE active Not Available Not Available No t Available hydrocortis one 2.5 % topical cream APPLY TO AFFECTED AREA TWICE A DAY NEEDED FOR SKIN IRRITATIO N active Not Available Not Available No t Available gabapentin 100 mg capsule TAKE 2 CAPSULES BY MOUTH TWICE A DAY FOR NEUROPATH IC PAIN active Not Available Not Available No t Available ibuprofen 600 mg tablet TAKE 1 TABLET BY MOUTH EVERY 6 HOURS NEEDED FOR PAIN active Not Available Not Available No t Available methylpredn isolone 4 mg tablets in a dose pack TAKE 6 TABLETS ON DAY 1 DIRECTED ON PACKAGE AND DECREASE BY 1 TAB EACH DAY FOR A TOTAL OF 6 DAYS active Not Available Not Available No t Available albuterol sulfate HFA 90 mcg/actuati on aerosol inhaler INHALE 1 PUFF BY MOUTH 4 TIMES A DAY NEEDED FOR SHORTNESS OF BREATH OR WHEEZING active Not Available Not Available No t Available hydroxyzine HCl 10 mg tablet TAKE 1 TABLET BY MOUTH EVERYDAY AT BEDTIME active Not Available Not Available No t Available ondansetron 4 mg disintegrat ing tablet DISSOLVE 1 TABLET BY MOUTH EVERY 8 HOURS NEEDED FOR NAUSEA AND VOMITING active Not Available Not Available No t Available fluticasone propionate 50 mcg/actuati on nasal spray,suspe nsion SPRAY 1 SPRAY INTO EACH NOSTRIL DAILY active Not Available Not Available No t Available Vitamin D3 25 mcg (1,000 unit) capsule TAKE 1 CAPSULE BY MOUTH EVERY DAY active Not Available Not Available No t Available cyclobenzap rine 5 mg tablet TAKE 1 TABLET BY MOUTH AT BEDTIME FOR MUSCLE SPASMS FOR 30 DAYS active Not Available Not Available No t Available Gavilax 17 gram/dose oral powder DISSOLVE 1 CAPFUL (17G) IN WATER AND DRINK BY MOUTH ONCE DAILY active Not Available Not Available No t Available Biktarvy 50 mg-200 mg-25 mg tablet TAKE 1 TABLET BY MOUTH EVERY DAY active Not Available Not Available No t Available Vitals Date Recorded Body height Body mass index (BMI) Body weight Provider Name and Address Organization Details Last Updated DateTime 12/05/2024 154.94 cm 29.9 kg/m2 41358.59 g EMILY BRINK [facility] 12/05/2024 12:56:34 Date Recorded Body height Body mass index (BMI) Body weight Provider Name and Address Organization Details Last Updated DateTime 03/07/2024 154.94 cm 29.9 kg/m2 30732.59 g LAURA JOHNSON [facility] 03/07/2024 10:23:38 Date Recorded Body height Body mass index (BMI) Body weight Provider Name and Address Organization Details Last Updated DateTime 03/20/2025 154.94 cm 29.9 kg/m2 86098.59 g Ab [facility] 03/20/2025 13:04:12 Date Recorded Body height Body mass index (BMI) Body weight Provider Name and Address Organization Details Last Updated DateTime 06/05/2024 154.94 cm 29.9 kg/m2 37616.59 [facility] 06/05/2024 10:24:47 Date Recorded Body height Body mass index (BMI) Body weight Provider Name and Address Organization Details Last Updated DateTime 09/05/2024 154.94 cm 29.9 kg/m2 09092.59 g Ab [facility] 09/05/2024 13:11:34 Social History None recorded. Functional Status None recorded. Mental Status None recorded. Family History Nothing Reported. Medical History No medical history recorded. Gynecological HistoryNo gynecological history recorded. Obstetrics History GPAL:G 0 P 0 0 0 0 Past Encounters Encounter ID Performer Location Encounter Start Date Encounter Closed Date Diagnosis/Indication Diagnosis SNOMED-CT Code Diagnosis ICD10 Code Diagnosis Note [id number] BRODY Hernández [address] [place] [address] 03/07/2024 10:17:35 03/28/2024 12:54:46 Osteoarthritis of knee 767855863 M17.9 [id number] Venancio Zwirko, PA-C [facility] [address] [place] [address] 06/05/2024 10:17:38 07/02/2024 15:24:13 Osteoarthritis of knee 843044132 M17.9 [id number] Venancio Caldera PA-C [address] [address] [place] [address] 09/05/2024 13:07:29 10/04/2024 09:55:59 Osteoarthritis of knee 683957017 M17.9 [id number] Venancio Caldera PA-C [facility] [address] [place] [address] 12/05/2024 12:46:14 12/20/2024 13:34:53 Osteoarthritis of left knee joint 8276173667 76607 M17.12 [id number] Venancio Caldera PA-C [facility] [address] [place] [address] 03/20/2025 12:38:42 03/29/2025 08:07:15 Osteoarthritis of knee 318100871 M17.9 Health Concerns Section Related Observation LastModified by Organization Detai ls LastModified Time None Recorded Concern Status LastModified by Organization Details LastModified Time None Recorded Advance Directives Directive None Recorded Payers Insurance Date Sequence Insurance Name Policy Number Policy Vilchis Covered Member ID Vilchis Member ID Guarantor Name 03/17/2025 2 [place] [facility] Rhina L Bird [id number] Rhina Bird 03/17/2025 1 [place] [employer] [place] [place] Rhina L Bird [id number] Rhina Salvatore Bird OBGyn Episode No OBEpisode recorded.
--- OUTSIDE RECORDS SUMMARY | 2025-05-06 14:19 | XMS_ITS | Patient Health Record ---
Author Organization [facility] Address [address] [place] [address] Care Team Providers Care Health Unit Coordinator Name Role Phone Sanket Terry MD Primary Care Provider Miguel Ángel Eden [phone] Allergies Allergen (clinical drug ingredient) Drug/Non Drug Allergy documented on EMR Reaction Allergy Type Onset Date Status codeine Codeine Sulfate Unknown Drug Allergy A ctive aspirin Aspirin Unknown Drug Allergy Active Reason For Referral No Information Medications Medication SIG (Take, Route, Frequency, Duration) Notes Start Date End Date Status MoviPrep 100 GM as directed Orally 08/03/20110 10/2024 Active Cymbalta 60mg Active Gabapentin 600mg Act avril Pantoprazole Sodium 40 MG TAKE 1 TABLET BY MOUTH EVERY DAY for 90 Please tell patient to call for an office appointment. Thanks Active Problems Problem Type SNOMED Code ICD Code Onset Dates Problem Status W/U Status Risk Notes Problem Esophageal reflux (682194017) Esophageal reflux (530.81) Active confirmed Problem Screening for malignant neoplasm of colon (887894613) Special screening for malignant neoplasms, colon (V76.51) Active confirmed Plan Of Treatment Future Test Test Name Order Date COLONOSCOPY 08/03/2011 Insurance Providers Payer Name Payer Address Payer Phone Subscriber Number Group Number Insured Name Patient Relationship to Insured Coverage Start Date Coverage End Date MEDICARE OF [place] [address] [place] [address] [id number] Self - patient is the insured MEDICAID OF [facility] [address] [place] [address] [id number] JESSY TRINIDAD Self - patient is the insured Medical (General) History Medical History History ICD Code fibromyalgia reflux Denies [place],DM,CVA,Lung disease,renal dise ase Surgical History Surgery Date(Month/Year) cholecystectomy 3 C-sections
--- OUTSIDE RECORDS SUMMARY | 2025-05-06 14:20 | XMS_ITS | Clinical Summary ---
Author Organization [facility] Address [address] [place] [address] Phone Care Team Providers Care Landscaper Helper Name Role Phone Physician, Pcp Unknown Primary Care Provider Desi vailable Medications ciclopirox (LOPROX) 0.77 % gel Apply topically 2 (two) times a day. 45 g 07/15/20 25 Active Encounters Date Type Department Care Team Description 04/16/2025 2:30 PM EDT Consult Orthopedic Surgery [facility] [address] [phone] Suhail Carroll DPM Acquired hallux valgus of right foot (Primary Dx); Acquired hammer toe of right foot; Acquired hallux valgus of left foot; Dermatophytosis of nail from Last 3 Months Social History Tobacco Use Types Packs/Day Years [...] Mass Index - - Plan of Treatment Upcoming Encounters Date Type Department Care Team ([facility] Contact Info) Description 05/28/2025 2:30 PM EDT Office Visit Orthopedic Surgery [facility] [address] [phone] Suhail Carroll DPM [address] [address] [place] [address] Health Maintenance Due Date Last Done Comments Breast Cancer Screening 1960 Meningococcal ACWY Vaccine (1 - Risk 2-dose series) 1962 COVID-19 Vaccine (#1) 1965 MMR Vaccines (1 of 2 - Risk 2-dose series) 1978 Hepatitis A Vaccines (1 of 2 - Risk 2-dose series) 12/15/1979 Cervical Cancer Screening: Pap Smear 1981 Hepatitis B Vaccines (1 of 3 - Risk 3-dose series) 2020 Colorectal Cancer Screening: Colonoscopy 09/07/2022 Hepatitis C Screening 09/07/2022 Medicare Annual Wellness Visit 09/07/2022 Social Influencers of Health Screening 09/07/2022 Depression Screening 10/10/2024 Influenza Vaccine (#1) 2025 , 08/06/2022, 09/01/2021, Additional history exists DTaP,Tdap,and Td Vaccines (2 - Td or Tdap) 07/04/2028 07/04/2018 Zoster Vaccines Completed 07/29/2022, 05/11/2022 RSV Immunization Adult Patients Completed 08/05/2023 Pneumococcal Vaccine: 50+ Years Completed 02/28/2025, 05/06/2022 HIB Vaccines Aged Out No longer eligi [...] to complete this topic RSV Immunization Patients Under 20 months Aged Out No longer eligible based on patient's age to complete this topic Varicella Vaccines Aged Out No longer eligible based on patient's age to complete this topic Procedures Procedure Name Priority Date/Time Associated Diagnosis Comments LYMPHOCYTE T-CELL PANEL Routine 03/25/20 11:38 AM EDT Human immunodeficiency virus (HIV) disease ([facility] V24, [facility] V28) CBC WITH AUTO DIFFERENTIAL Routine 03/22/2025 2:56 PM EDT Human immunodeficiency virus (HIV) disease ([facility]/HCC V24, CMS/HCC V28) CBC AND DIFFERENTIAL Routine 03/22/2025 2:56 PM EDT Human immunodeficiency virus (HIV) disease ([facility]/HCC V24, CMS/HCC V28) HIV 1 MOLECULAR STUDY QUANTITATIVE Routine 03/22/2025 2:56 PM EDT Human immunodeficiency virus (HIV) disease ([facility]/HCC V24, [facility]/HCC V28) CREATININE, SERUM Routine 03/22/2025 2:5 6 PM EDT Human immunodeficiency virus (HIV) disease ([facility]/HCC V24, CMS/HCC V28) ASPARTATE AMINOTRANSFERASE Routine 03/22/2025 2:56 PM EDT Human immunodeficiency virus (HIV) disease ([facility]/HCC V24, CMS/HCC V28) ALANINE AMINOTRANSFERASE Routine 03/22/2025 2:56 PM EDT Human immunodeficiency virus (HIV) disease ([facility]/HCC V24, CMS/HCC V28) from Last 3 Months Results * Lymphocyte T-cell panel (03/25/2025 11:38 AM EDT) CD4 468 426 - 1,776 cells/mcL 03/27/2025 12:20 PM EDT [facility] CD8 278 161 - 838 cells/mcL 03/27/2025 12:20 PM EDT [facility] CD4/CD8 Ratio 1.68 0.90 - 4.90 03/27/2025 12:20 PM EDT [facility] CD4 % 42 33 - 64 % 03/27/2025 12:20 PM T [facility] CD8 % 25 10 - 39 % 03/27/2025 12:20 PM T [facility] Blood Venous blood specimen / Unknown Venipuncture / Unknown 03/25/2025 11:38 AM EDT 03/25/2025 12:24 PM EDT us Emerita Alejandra MD LAB MOLECULAR DIAGNOSTICS ORDERABLES Final Result [facility] [address] [place] [address], [place] [phone] * CBC auto differential (03/22/2025 2:56 PM EDT) WBC 6.4 4.8 - 10.8 K/mcL LAB HEMETOLOGY METHOD 03/22/2025 4:04 PM EDT [facility] RBC 3.90 3.80 - 4.80 M/mcL [facility] Hemoglobin 11.7 11.5 - 16.0 g/dL LAB HEMETOLOGY METHOD 03/22/2025 4:04 PM EDT [facility] Hematocrit 36.6 35.0 - 47.0 % LAB HEMETOLOGY METHOD 03/22/2025 4:04 PM EDT [facility] MCV 93.1 79.0 - 98.0 FL LAB HEMETOLOGY METHOD [facility] MCH 29.8 27.0 - 32.0 pcg LAB HEMETOLOGY METHOD 03/22/2025 4:04 PM EDT [facility] MCHC 32.0 32.0 - 37.0 g/dL LAB HEMETOLOGY METHOD 03/22/2025 4:04 PM EDT [facility] RDW 12.6 11.0 - 15.0 % LAB HEMETOLOGY METHOD 03[facility]22[facility]25 [facility] Platelets 309 130 - 400 K/mcL LAB HEMETOLOGY METHOD 03/22/2025 4:04 PM EDT [facility] MPV 10.4 7.0 - 11.0 FL LAB HEMETOLOGY METHOD 03/22/2025 4:04 PM [facility] NRBC 0.0 <1.0 % LAB HEMETOLOGY METHOD 03/22/2025 4:04 PM [facility] NRBC Absolute 0.00 <0.10 K/mcL LAB HEMETOLOGY METHOD 03/22/2025 4:04 PM [facility] Neutrophils Relative 73.1 % LAB HEMETOLOGY METHOD 03/22/2025 4:04 PM [facility] Lymphocytes Relative 18.8 % LAB HEMETOLOGY METHOD 03/22/2025 4:04 PM [facility] Monocytes Relative 7.6 % LAB HEMETOLOGY METHOD 03/22/2025 4:04 PM [facility] Eosinophils Relative 0.0 % LAB HEMETOLOGY METHOD 03/22/2025 4:04 PM [facility] Basophils Relative 0.0 % LAB HEMETOLOGY METHOD 03/22/2025 4:04 PM [facility] Immature Granulocytes Relative 0.5 % LAB HEMETOLOGY METHOD 03/22/2025 4:04 PM [facility] Neutrophils Absolute 4.70 1.50 - 7.00 K/mcL LAB HEMETOLOGY METHOD 03/22/2025 4:04 PM [facility] Lymphocytes Absolute 1.21 1.00 - 5.00 K/mcL LAB HEMETOLOGY METHOD 03/22/2025 4:04 PM [facility] Monocytes Absolute 0.49 0.20 - 1.00 K/mcL LAB HEMETOLOGY METHOD 03/22/2025 4:04 PM [facility] Eosinophils Absolute 0.00 0.00 - 0.50 K/mcL LAB HEMETOLOGY METHOD 03/22/2025 4:04 PM EDT [facility] Basophils Absolute 0.00 0.00 - 0.20 K/mcL LAB HEMETOLOGY METHOD 03/22/2025 4:04 PM EDT [facility] Immature Granulocytes Absolute 0.03 0.00 - 0.03 K/[facility] LAB HEMETOLOGY METHOD 03/22/2025 4:04 PM EDT [facility] Blood Venous blood specimen / Unknown Venipuncture / Unknown 03/22/2025 2:56 PM EDT 03/22/2025 3:48 PM EDT us Emerita Alejandra MD LAB BLOOD ORDERABLES Emily l Result Performing Organization Address [facility]/ZIP Co de Phone Number [facility] [address] [place] [address], [place] [phone] * HIV 1 molecular study quantitative (03/22/2025 2:56 PM EDT) [facility] HIV-1 RNA Interpretation Not Detected Not Detected LAB MOLECULAR DIAGNOSTICS METHOD 03/26/2025 10:51 AM EDT [facility] Comment:HIV RNA not detected , unable to report quantitative results. Blood Venous blood specimen / Unknown Venipuncture / Unknown 03/22/2025 2:56 PM EDT 03/22/2025 3:48 PM EDT us Emerita Alejandra MD LAB BLOOD ORDERABLES Emily l Result [facility] [address] [place] [address], [place] [phone] * Creatinine (03/22/2025 2:56 PM EDT) [facility] Creatinine 0.91 0.50 - 1.10 mg/dL LAB CHEMISTRY METHOD 03/22/2025 4:36 PM EDT [facility] eGFR 71 >=60 mL/min/1. 73m2 LAB CHEMISTRY METHOD 03/22/2025 4:36 PM EDT [facility] Comment:Calculation based on the Chronic Kidney Disease Epidemiology Collaboration (CKD-EPI) equation refit without adjustment for race. Blood Venous blood specimen / Unknown Venipuncture / Unknown 03/22/2025 2:56 PM EDT 03/22/2025 3:47 PM EDT Emerita Alejandra MD LAB BLOOD ORDERABLES Emily l Result Performing Organization Address City/[facility]/ZIP Co de Phone Number [facility] [address] [place] [address], [place] [phone] * Alanine aminotransferase (03/22/2025 2:56 PM EDT) ALT (SGPT) 31 10 - 60 unit/L LAB CHEMISTRY METHOD 03/22/2025 4:36 PM EDT [facility] Blood Venous blood specimen / Unknown Venipuncture / Unknown 03/22/2025 2:56 PM EDT 03/22/2025 3:47 PM EDT Emerita Alejandra MD LAB BLOOD ORDERABLES Emily l Result Performing Organization Address [facility]/ZIP Co de Phone Number [facility] [address] [place] [address], [place] [phone] * Aspartate aminotransferase (03/22/2025 2:56 PM EDT) AST (SGOT) 22 10 - 42 unit/L LAB CHEMISTRY METHOD 03/22/2025 4:36 PM EDT [facility] Blood Venous blood specimen / Unknown Venipuncture / Unknown 03/22/2025 2:56 PM EDT 03/22/2025 3:47 PM EDT us Emerita Alejandra MD LAB BLOOD ORDERABLES Emily l Result [facility] [address] [place] [address], [place] [phone] from Last 3 Months Insurance [place] - [place] Care Teams Landscaper Helper Relationship Specialty Start Date End Date Physician, Pcp Unknown PCP - General 03/22/25
== END 2025-05-06 14:23 | disposition home or self-care (01) ==
LOC: HO.HGI 13:39
PROVIDERS: PCP Internal Medicine; Visit Provider Nurse Practitioner Family
DX: R11.0 Nausea (principal); K21.9 Gastro-esophageal reflux disease without esophagitis; R79.89 Other specified abnormal findings of blood chemistry; R10.12 Left upper quadrant pain
CPT/HCPCS: 99213

== ENCOUNTER → 2025-05-06 13:38 | Outpatient (BNVA) | payer MEDICARE, MEDICAID, SELFPAY | PROVIDERS: PCP Internal Medicine; Visit Provider Nurse Practitioner Family | DX: R11.0 Nausea (principal); K21.9 Gastro-esophageal reflux disease without esophagitis; R79.89 Other specified abnormal findings of blood chemistry; R10.12 Left upper quadrant pain | CPT/HCPCS: 99212 ==

== ENCOUNTER 2025-06-06 13:29 | Outpatient (AMB) | payer MEDICARE, MEDICAID, SELFPAY ==
[2025-06-06 13:50] VITALS: BP 114/70; PULSE 82; TEMP 36.8; O2SAT 99; BMI 30.6
--- NOTE | 2025-06-06 13:50 | AM.OFFWIN_ITS ---
Intake Vital Signs 06/06/25 13:50 Height 5 ft 1 in Weight 162 lb BMI 30.6 BP 114/70 Blood Pressure Location Lt brachial Position Sitting Pulse 82 Pulse Source Pulse Oximeter Temp 98.3 F Temp Source Oral Pulse Oximetry (%) 99 Oxygen Delivery Method Room Air Intake Visit Reasons: EP-nauseas, diarrheah, lt arm numbness Intake Note: pt presents with yard work then ate a salad and a toribio= started body hot/cold chills, vomiting yesterday, nausea and diarrhea since yesterday- Patient Tobacco Use Status: Former Tobacco user Allergies aspirin (ASPIRIN) Allergy (Intermediate, Verified 06/06/25 13:54) HIVES, stomach upset codeine (CODEINE) Allergy (Intermediate, Verified 06/06/25 13:54) NAUSEA & VOMITING, drowsy, upset stomach ondansetron (Zofran) Allergy (Intermediate, Verified 06/06/25 13:54) headache Iodinated Contrast Media (IV Contrast Dye) Allergy (Verified 06/06/25 13:54) Unknown Do you need a note to return to daycare/school/sports/work: No HPI HPI Comments History of Present Illness Details 64 y/o Female patient who presents to [facility] with c/o Abdominal pain associated with Nausea, vomiting and diarrhea since Tuesday evening. Pt reports Prior to symptoms start she ate a Salad and a Toribio. Denies fevers but reports Body chills. [facility] Medical History (Updated 06/06/25 @ 14:26 by Britta Pavon NP) Gastritis Cough Tubular adenoma Shoulder pain, right GERD (gastroesophageal reflux disease) Dysplasia of cervix, low grade (TOMA 1) Pulmonary nodules Abnormal EKG Knee pain, left Abnormal Pap smear of cervix Osteoarthritis Anxiety, generalized Chronic GERD HIV positive Surgical History History of esophagogastroduodenoscopy (EGD) History of colonoscopy History of section History of bilateral tubal ligation Family History Father CVD (cardiovascular disease) Mother Arthritis Social History Housing: House Alcohol intake: never Patient Tobacco Use Status: Former Tobacco user Tobacco use type: Cigarette e-Cigarette/Vaping Use: Never Used service: No Current occupational status: employed and disabled Cognitive needs: No Hearing needs: No Vision needs: Yes Female Reproductive History Menstrual Age of Menarche: 11 Review of Systems Const All systems reviewed & are unremarkable except as noted in HPI and below Physical Exam Vital Signs: Last Vital Signs Temp 98.3 F 06/06/25 13:50 Pulse 82 06/06/25 13:50 BP 114/70 06/06/25 13:50 Pulse Ox 99 06/06/25 13:50 Oxygen Delivery Method Room Air 06/06/25 13:50 BMI result Body Mass Index 30.6 Const General: no acute distress Nutritional Appearance: overweight Orientation/consciousness: patient oriented x3 Resp Effort & Inspection: normal respiratory effort Cardio Heart sounds: S1 normal heart sound present and S2 normal heart sound present GI Inspection: Yes Abdominal panniculus present Palpation (GI): Soft to palpation, not firm, Tenderness to palpation present (GI), no guarding, not rigid and No hepatosplenomegaly present Auscultation: Hyperactive bowel sounds present Rectal Exam - Female: deferred Neuro General: patient oriented x3, gait normal and moves all extremities Psych Speech and movement: Normal speech and movement present Assessment & Plan Assessment & Plan (1) Gastritis: Code(s): K29.70 - Gastritis, unspecified, without bleeding Qualifiers: Chronicity: acute Gastritis bleeding: without bleeding Gastritis type: other gastritis Qualified Code(s): K29.00 - Acute gastritis without bleeding Plan: Ordered Reglan - Pt reports allergy to Zofran. Advised to hydrate well with fluids. Avoid spicy oily and greasy foods. Advance diet slowly Medications: New metoclopramide HCl (Reglan) 10 mg PO Q6H 20 tabs 0RF nausea and vomiting K29.00 - Acute gastritis without bleeding Discontinued ondansetron Discontinued Reason: Patient Completed Course 4 mg PO Q8H PRN 10 tabs 0RF nausea and vomiting Coding Level of Care Code Est Pt Level 4 (92214) Diagnoses Other acute gastritis without hemorrhage K29.00 Chronicity: acute Gastritis bleeding: without bleeding Gastritis type: other gastritis Time Spent (min) 20
--- OUTSIDE RECORDS SUMMARY | 2025-06-06 14:09 | XMS_ITS | Patient Health Record ---
Author Organization [facility] Address [address] [place] [address] Care Team Providers Care Student Union Consultant Name Role Phone Sanket Terry MD Primary Care Provider Miguel Ángel Eden [phone] Allergies Allergen (clinical drug ingredient) Drug/Non Drug Allergy documented on EMR Reaction Allergy Type Onset Date Status codeine Codeine Sulfate Unknown Drug Allergy A ctive aspirin Aspirin Unknown Drug Allergy Active Reason For Referral No Information Medications Medication SIG (Take, Route, Frequency, Duration) Notes Start Date End Date Status MoviPrep 100 GM as directed Orally 08/03/2011/0 10/2024 Active Cymbalta 60mg Active Gabapentin 600mg Act avril Pantoprazole Sodium 40 MG TAKE 1 TABLET BY MOUTH EVERY DAY for 90 Please tell patient to call for an office appointment. Thanks Active Problems Problem Type SNOMED Code ICD Code Onset Dates Problem Status W/U Status Risk Notes Problem Esophageal reflux (495751802) Esophageal reflux (530.81) Active confirmed Problem Special screening for malignant neoplasms, colon (V76.51) Active confirmed Plan Of Treatment Future Test Test Name Order Date COLONOSCOPY 08/03/2011 Insurance Providers Payer Name Payer Address Payer Phone Subscriber Number Group Number Insured Name Patient Relationship to Insured Coverage Start Date Coverage End Date MEDICARE OF [place] [address] [place] [address] [id number] TRINIDAD, JESSY Self - patient is the insured MEDICAID OF [facility] [address] [place] [address] [id number] TRINIDADJESSY BRUCE Self - patient is the insured Medical (General) History Medical History History ICD Code fibromyalgia reflux Denies [place],DM,CVA,Lung disease,renal dise ase Surgical History Surgery Date(Month/Year) cholecystectomy 3 C-sections
--- OUTSIDE RECORDS SUMMARY | 2025-06-06 14:09 | XMS_ITS | Clinical Summary ---
Author Organization [facility] Address [address] [place] [address] Phone Care Team Providers Care Aircraft Delivery Checker Name Role Phone Physician, Pcp Unknown Primary Care Provider Desi vailable Medications ciclopirox (LOPROX) 0.77 % gel Apply topically 2 (two) times a day. 45 g 5 07/15/20 25 Active clotrimazole (LOTRIMIN) 1 % cream Apply topically 2 (two) times a day. 30 g 3 5 06/27/20 25 Active Active Problems Problem Noted Date Diagnosed Date Acquired hallux valgus of right foot 05/28/2025 Acquired hammer toe of right foot 05/28/2025 Encounters Date Type Department Care Team Description 05/28/2025 2:30 PM EDT Office Visit Orthopedic Surgery [facility] [address] [phone] Suhail Carroll DPM Acquired hallux valgus of right foot (Primary Dx); Follow-up exam; Acquired hammer toe of right foot; Dermatophytosis of nail 04/16/2025 2:30 PM EDT Consult Orthopedic Surgery [facility] [address] [phone] Suhail Carroll DPM Acquired hallux valgus of [...] Upcoming Encounters Date Type Department Care Team (Late st Contact Info) Description 08/07/2025 2:15 PM EDT Office Visit Orthopedic Surgery - [place] [address] [place] [phone] Suhail Carroll, DPM [address] [place] [phone] Scheduled Procedures Name Priority Associated Diagnoses Date/Ti me BUNIONECTOMY Acquired hallux valgus of right foot Acquired hammer toe of right foot Health Maintenance Due Date Last Done Comments [...] Procedure Name Priority Date/Time Associated Diagnosis Comments XR FOOT 3+ VIEWS BILAT Routine 2:58 PM EDT Follow-up exam LYMPHOCYTE T-CELL PANEL Routine 03/25/20 11:38 AM EDT Human immunodeficiency virus (HIV) disease ([facility] V24, [facility] V28) CBC WITH AUTO DIFFERENTIAL Routine 03/22/2025 2:56 PM EDT Human immunodeficiency virus (HIV) disease ([facility] V24, [facility] V28) CBC AND DIFFERENTIAL Routine 03/22/2025 2:56 PM EDT Human immunodeficiency virus (HIV) disease ([facility] V24, [facility] V28) HIV 1 MOLECULAR STUDY QUANTITATIVE Routine 03/22/2025 2:56 PM EDT Human immunodeficiency virus (HIV) disease ([facility] V24, [facility] V28) CREATININE, SERUM Routine 03/22/2025 2:5 6 PM EDT Human immunodeficiency virus (HIV) disease ([facility] V24, [facility] V28) ASPARTATE AMINOTRANSFERASE Routine 03/22/2025 2:56 PM EDT Human immunodeficiency virus (HIV) disease ([facility] V24, [facility] V28) ALANINE AMINOTRANSFERASE Routine 03/22/2025 2:56 PM EDT Human immunodeficiency virus (HIV) disease ([facility] V24, [facility] V28) from Last 3 Months Results * XR Foot 3+ Views bilat (05/28/2025 2:58 PM EDT) Anatomical Region Laterality Modality Lower Extremities, Foot Bilateral Computed Radiography Narrative 05/28/2025 5:09 PM EDT Right foot 3 views No fracture. No radiopaque foreign joint spaces Arthritis mild Severe bunion deformity right great toe significant adductovarus deformity hammertoe contracture 4th and 5th digit right foot Foot position Pes planus with Talus navicular uncovering decreased calcaneal inclination anterior displaced symes line talus navicular joint to calcaneal cuboid joint Left foot 3 views No fracture. No radiopaque foreign joint spaces Arthritis mild Mild bunion deformity mild hammertoe contractures Foot position Pes planus with Talus navicular uncovering decreased calcaneal inclination anterior displaced symes line talus navicular joint to calcaneal cuboid joint us Suhail Carroll DPM IMG XR PROCEDURES Final R esult * Lymphocyte T-cell panel (03/25/2025 11:38 AM EDT) CD4 468 426 - 1,776 cells/mcL 03/27/2025 12:20 PM EDT [facility] CD8 278 161 - 838 cells/mcL 03/27/2025 12:20 PM EDT [facility] CD4/CD8 Ratio 1.68 0.90 - 4.90 03/27/2025 12:20 PM EDT [facility] CD4 % 42 33 - 64 % 03/27/2025 12:20 PM EDT [facility] CD8 % 25 10 - 39 % 03/27/2025 12:20 PM EDT [facility] Blood Venous blood specimen / Unknown Venipuncture / Unknown 03/25/2025 11:38 AM EDT 03/25/2025 12:24 PM EDT us Emerita Alejandra MD LAB MOLECULAR DIAGNOSTICS ORDERABLES Final Result [facility] [address] [place] [address], [place] [phone] * CBC auto differential (03/22/2025 2:56 PM EDT) [facility] WBC 6.4 4.8 - 10.8 K/mcL LAB HEMETOLOGY METHOD 03/22/2025 4:04 PM EDT [facility] RBC 3.90 3.80 - 4.80 M/mcL LAB HEMETOLOGY METHOD 03/22/2025 4:04 PM EDT [facility] Hemoglobin 11.7 11.5 - 16.0 g/dL LAB HEMETOLOGY METHOD [facility] Hematocrit 36.6 35.0 - 47.0 % LAB HEMETOLOGY METHOD 03/22[facility]2025 [facility] MCV 93.1 79.0 - 98.0 FL LAB HEMETOLOGY METHOD 03/22/2025 4:04 PM EDT [facility] MCH 29.8 27.0 - 32.0 pcg LAB HEMETOLOGY METHOD 03/22[facility]2025 [facility] MCHC 32.0 32.0 - 37.0 g/dL LAB HEMETOLOGY METHOD 03/22/2025 4:[facility] RDW 12.6 11.0 - 15.0 % LAB HEMETOLOGY METHOD 03/22/2025 4:04 PM EDT [facility] Platelets 309 130 - 400 K/mcL LAB HEMETOLOGY METHOD 03/22/2025 4:04 PM EDT [facility] MPV 10.4 7.0 - 11.0 FL LAB HEMETOLOGY METHOD 03/22/2025 4:04 PM EDT [facility] NRBC 0.0 <1.0 % LAB HEMETOLOGY METHOD 03/22/2025 4:04 PM [facility] NRBC Absolute 0.00 <0.10 K/mcL LAB HEMETOLOGY METHOD 03/22/2025 4:04 PM [facility] Neutrophils Relative 73.1 % LAB HEMETOLOGY METHOD 03/22/2025 4:04 PM [facility] Lymphocytes Relative 18.8 % LAB HEMETOLOGY METHOD 03/22/2025 4:04 PM [facility] Monocytes Relative 7.6 % LAB HEMETOLOGY METHOD 03/22/2025 4:04 PM [facility] Eosinophils Relative 0.0 % LAB HEMETOLOGY METHOD 03/22/2025 4:04 PM [facility] Basophils Relative 0.0 % LAB HEMETOLOGY METHOD 03/22/2025 4:04 PM [facility] Immature Granulocytes Relative 0.5 % LAB HEMETOLOGY METHOD 03/22/2025 4:04 PM [facility] Neutrophils Absolute 4.70 1.50 - 7.00 K/mcL LAB HEMETOLOGY METHOD 03/22/2025 4:04 PM [facility] Lymphocytes Absolute 1.21 1.00 - 5.00 K/mcL LAB HEMETOLOGY METHOD 03/22/2025 4:04 PM [facility] Monocytes Absolute 0.49 0.20 - 1.00 K/mcL LAB HEMETOLOGY METHOD 03/22/2025 4:04 PM [facility] Eosinophils Absolute 0.00 0.00 - 0.50 K/mcL LAB HEMETOLOGY METHOD 03/22/2025 4:04 PM [facility] Basophils Absolute 0.00 0.00 - 0.20 K/mcL LAB HEMETOLOGY METHOD 03/22/2025 4:04 PM [facility] Immature Granulocytes Absolute 0.03 0.00 - 0.03 K/mcL LAB HEMETOLOGY METHOD 03/22/2025 4:04 PM EDT [facility] Blood Venous blood specimen / Unknown Venipuncture / Unknown 03/22/2025 2:56 PM EDT 03/22/2025 3:48 PM EDT Emerita Alejandra MD LAB BLOOD ORDERABLES Emily l Result Performing Organization Address City/[facility]/ZIP Co de Phone Number [facility] [address] [place] [address], [place] [phone] * HIV 1 molecular study quantitative (03/22/2025 2:56 PM EDT) [facility] HIV-1 RNA Interpretation Not Detected Not Detected LAB MOLECULAR DIAGNOSTICS METHOD 03/26/2025 10:51 AM EDT [facility] Comment:HIV RNA not detected , unable to report quantitative results. Blood Venous blood specimen / Unknown Venipuncture / Unknown 03/22/2025 2:56 PM EDT 03/22/2025 3:48 PM EDT Emerita Alejandra MD LAB BLOOD ORDERABLES Emily l Result Performing Organization Address [facility] de Phone Number [facility] [address] [place] [address], [place] [phone] * Creatinine (03/22/2025 2:56 PM EDT) [facility] Creatinine 0.91 0.50 - 1.10 mg/dL LAB CHEMISTRY METHOD 03/22/2025 4:36 PM EDT [facility] eGFR 71 >=60 mL/min/1. 73m2 LAB CHEMISTRY METHOD 03/22/2025 4:36 PM EDT [facility] Comment:Calculation based on the Chronic Kidney Disease Epidemiology Collaboration (CKD-EPI) equation refit without adjustment for race. Blood Venous blood specimen / Unknown Venipuncture / Unknown 03/22/2025 2:56 PM EDT 03/22/2025 3:47 PM EDT Emerita Alejandra MD LAB BLOOD ORDERABLES Emily l Result Performing Organization Address [facility] Co de Phone Number [facility] [address] [place] [address], [place] [phone] * Alanine aminotransferase (03/22/2025 2:56 PM EDT) ALT (SGPT) 31 10 - 60 unit/L LAB CHEMISTRY METHOD 03/22/2025 4:36 PM EDT [facility] Blood Venous blood specimen / Unknown Venipuncture / Unknown 03/22/2025 2:56 PM EDT 03/22/2025 3:47 PM EDT Emerita Alejandra MD LAB BLOOD ORDERABLES Emily l Result Performing Organization Address [facility] Co de Phone Number [facility] [address] [place] [address], [place] [phone] * Aspartate aminotransferase (03/22/2025 2:56 PM EDT) [facility] AST (SGOT) 22 10 - 42 unit/L LAB CHEMISTRY METHOD 03/22/2025 4:36 PM EDT [facility] Blood Venous blood specimen / Unknown Venipuncture / Unknown 03/22/2025 2:56 PM EDT 03/22/2025 3:47 PM EDT Emerita Alejandra MD LAB BLOOD ORDERABLES Emily l Result Performing Organization Address [facility]/ZIP Co de Phone Number [facility] [address] [place] [address], [place] [phone] from Last 3 Months Insurance MEDICAID - [place] MEDICARE Care Teams Aircraft Delivery Checker Relationship Specialty Start Date End Date Physician, Pcp Unknown PCP - General 03/22/25
== END 2025-06-06 14:33 | disposition home or self-care (01) ==
PROVIDERS: PCP Internal Medicine; Visit Provider Nurse Practitioner Family
DX: K29.00 Acute gastritis without bleeding (principal)

== ENCOUNTER → 2025-06-06 13:29 | Outpatient (BNVA) | payer MEDICARE, MEDICAID, SELFPAY | PROVIDERS: PCP Internal Medicine; Visit Provider Nurse Practitioner Family | DX: K29.00 Acute gastritis without bleeding (principal) | CPT/HCPCS: 99212 ==

== ENCOUNTER 2025-07-26 11:17 | Outpatient (AMB) | payer MEDICARE, MEDICAID, SELFPAY ==
[2025-07-26 11:21] VITALS: BP 116/78; PULSE 80; O2SAT 97; BMI 31.2
--- NOTE | 2025-07-26 11:21 | A.OFFPC_ITS ---
Vital Signs 07/26/25 11:21 Height 5 ft 1 in Weight 165 lb BMI 31.2 BP 116/78 Blood Pressure Location Lt brachial Position Sitting Pulse 80 Pulse Source Pulse Oximeter Pulse Oximetry (%) 97 Oxygen Delivery Method Room Air Intake Visit Reasons: Annual PE Allergies aspirin (ASPIRIN) Allergy (Intermediate, Verified 07/26/25 11:22) HIVES, stomach upset codeine (CODEINE) Allergy (Intermediate, Verified 07/26/25 11:22) NAUSEA & VOMITING, drowsy, upset stomach ondansetron (Zofran) Allergy (Intermediate, Verified 07/26/25 11:22) headache Iodinated Contrast Media (IV Contrast Dye) Allergy (Verified 07/26/25 11:22) Unknown Medication List - Last Reconciled 07/26/25 by Vicky Pearl MD albuterol sulfate 90 mcg/actuation 1 inh inhalation QID PRN atenolol 25 mg PO DAILY 90 days ygglydkiq-jwfpvyge-rovfaan ala 50-200-25 mg (Biktarvy) 1 tab PO DAILY cholecalciferol (vitamin D3) 25 mcg PO DAILY 90 days cyclobenzaprine 5 mg PO BEDTIME 30 days docusate sodium 100 mg PO BEDTIME esomeprazole magnesium 40 mg PO DAILY fluticasone propionate 50 mcg/actuation 1 spray intranasal DAILY gabapentin 200 mg (2 x 100 mg) PO BID ipratropium-albuterol 0.5 mg-3 mg(2.5 mg base)/3 mL 3 mL inhalation TID 10 days metoclopramide HCl (Reglan) 10 mg PO Q6H triamcinolone acetonide 0.1% topical BEDTIME [Updraft machine As directed] valacyclovir 1,000 mg PO BID Tobacco use date assessed: 01/15/25 Dental Screening Dental Screen Date: 01/15/25 HPI Annual PE HPI Details History of Present Illness The patient is a 64-year-old female presenting for physical examination and having urinary symptoms with frequency of urination and suprapubic discomfort for the past few days Hematuria: - The patient reports experiencing urina ry symptoms, including a sensation of pressure while urinating, for approximately two weeks. - Previous urine test in April last year was clear, but current findings show a small amount of blood present. - The patient has noticed blood in urine on and off but has not consulted a urologist. - There is no indication of an active in fection in the urine. Cervical Radiculopathy: - The patient reports right-sided neck p ain radiating downwards, associated with cervical radiculopathy. - History of surgery being considered bu t not performed due to worsening symptoms and concern about permanent damage if untreated. - Neck pain significantly impacting her quality of life and daily activities. - patient has choose Rejection of surger y in favor of conservative management due to past experience with daughter. Generalized Pain: - Pain from the neck down initially star birdie with arthritis. - Pain is described as worsening without any specified alleviating factors. . Anxiety Disorder: - Patient has a past history of anxiety disorder with medication taken a long time ago. - Currently experiencing a recurrence of anxiety, although not opting for medication. Human Immunodeficiency Virus (HIV) Infection: - HIV is stable without any current issu es. - Patient sees an infectious disease spe cialist regularly. Medical History: - Essential Hypertension - Gastroesophageal Reflux Disease - Emphysema - Anxiety Disorder - Human Immunodeficiency Virus (HIV) Inf ection - Osteoarthritis multiple joints Surgical History: - Polypectomy for tubular adenoma during colonoscopy in May 2021 Health Maintenance - Pneumococcal vaccine administered in 2022 - Tetanus vaccination in 2017 - Herpes zoster vaccination in 2021 - Last colonoscopy revealed a tubular ad enoma; next colonoscopy recommended due to polyp removal - Current weight maintenance observed; l ast recorded weights: 178 lbs (2021), 175 lbs (2022) [place] [facility] - 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 Emerita osborn, [facility] Patient Instructions - Take the prescribed three-day antibiot ic course. For possible UTI - Follow up with the urine test after co mpleting antibiotics. - Continue current blood pressure medica tion, aiming to maintain levels below 140 mmHg. - Exercise regularly to increase arm str ength; actively manage pain via prescribed management strategies. - Follow routine appointments with speci alists as scheduled. - Perform blood tests as ordered fasting - Follow a balanced diet, maintain regul ar checkup schedules. Physical exam 1 year Review of Systems - General: No fever no chills - Neurological: No headaches no dizzin ess - Ear nose throat: No sore throat no hearing difficulty no ear pain - Cardiovascular: No syncope, no chest pain, no palpitations - Gastrointestinal: No nausea vomiting or diarrhea - Skin: No new complaints Physical Exam General: Cooperative, healthy appearing, comfortable, no acute distress Orientation: Patient oriented x3 Head: Normal to inspection Ears: Within normal limit visually Nose: Normal external nose present Face and sinus: Normal facial exam Eyes: Appearance normal, extraocular movement intact pupils reactive Neck: Normal visual inspection and limited range of motion due to discomfort Respiratory: Normal respiratory effort and able to speak in complete sentences. Clear to auscultation, no stridor. Clear to auscultation Cardiovascular: S1 and S2 RRR GI: Normal to inspection. Soft to palpation and nontender Skin: Turgor normal, no acute findings Neuro: Patient oriented x3, motor sensory intact, balance intact, tandem pass. Extremities: Normal to inspection, chronically limited range of motion both shoulders unable to lift above head . [facility] Medical History Gastritis Cough Tubular adenoma Shoulder pain, right GERD (gastroesophageal reflux disease) Dysplasia of cervix, low grade (TOMA 1) Pulmonary nodules Abnormal EKG Knee pain, left Abnormal Pap smear of cervix Osteoarthritis Anxiety, generalized Chronic GERD HIV positive Surgical History History of esophagogastroduodenoscopy (EGD) History of colonoscopy History of section History of bilateral tubal ligation Family History Father CVD (cardiovascular disease) Mother Arthritis Social History Housing: House Alcohol intake: never Patient Tobacco Use Status: Former Tobacco user Tobacco use type: Cigarette e-Cigarette/Vaping Use: Never Used service: No Current occupational status: employed and disabled Cognitive needs: No Hearing needs: No Vision needs: Yes Female Reproductive History Menstrual Age of Menarche: 11 Questionnaire Thrive Questionnaire Date Thrive assessed: 01/15/25 IAN-7 AMB Questionnaire IAN-7 Date IAN - 7 assessed: 01/15/25 Source: Developed by Drs. Miguel Ángel Toth, Georgia Ferrari, Ryan Funez and colleagues, with an educational bart from [employer]. Physical exam (Primary Care) Vital Signs: Last Vital Signs Pulse 80 07/26/25 11:21 BP 116/78 07/26/25 11:21 Pulse Ox 97 07/26/25 11:21 Oxygen Delivery Method Room Air 07/26/25 11:21 BMI result Body Mass Index 31.2 Tobacco/Smoking Status: Tobacco use Status Tobacco use date assessed 01/15/25 07/26/25 11:24 Patient Tobacco Use Status Former Tobacco user 07/26/25 11:24 Tobacco use type Cigarette 07/26/25 11:24 e-Cigarette/Vaping Use Never Used 07/26/25 11:24 Thrive Assessment: Date of Thrive Assessment Date Thrive assessed 01/15/25 07/26/25 11:24 Results AMB Urinalysis, Automated UA Leukoctes 0 Soheila/uL Last Edit by Naseem Robles CMA on 07/26/25 12:14 UA Nitrite Negative Last Edit by Naseem Robles CMA on 07/26/25 12:14 UA Urobilinogen 0.2 mg/dL Last Edit by Naseem Robles CMA on 07/26/25 12 :14 UA Protein 0 mg/dL Last Edit by Naseem Robles CMA on 07/26/25 12:14 UA pH 6.5 Last Edit by Naseem Robles CMA on 07/26/25 12:14 UA Blood 10 James/uL Last Edit by Naseem Robles CMA on 07/26/25 12:14 UA Specific [place] 1.015 Last Edit by Naseem Robles CMA on 07/26/25 12:14 UA Ketone Negative Last Edit by Naseem Robles CMA on 07/26/25 12:14 UA Bilirubin 0 mg/dL Last Edit by Naseem Robles CMA on 07/26/25 12:14 UA Glucose 0 mg/dL Last Edit by Naseem Robles CMA on 07/26/25 12:14 Coding Level of Care Code Est Pt Level 4 (97019) Est Pt Prev Care 40-64y(03338) Diagnoses Encounter for general adult medical examination with abnormal findings Z00.01 Other microscopic hematuria R31.29 Hematuria type: other microscopic HIV positive Z21 Anxiety, generalized F41.1 Generalized body aches R52 Gastroesophageal reflux disease without esophagitis K21.9 Esophagitis presence: without esophagitis Hypertension, essential I10 Osteoarthritis involving multiple joints on both sides of body M15.9 Asthma exacerbation, mild J45.901 Vitamin D deficiency E55.9 Assessment & Plan Assessment & Plan (1) Encounter for general adult medical examination with abnormal findings: Code(s): Z00.01 - Encounter for general adult medical examination with abnormal findings Category: Medical (2) Blood in urine: Code(s): R31.9 - Hematuria, unspecified Category: Medical Qualifiers: Hematuria type: other microscopic Qualified Code(s): R31.29 - Other microscopic hematuria (3) HIV positive: Code(s): Z21 - Asymptomatic human immunodeficiency virus [HIV] infection status Category: Medical (4) Anxiety, generalized: Code(s): F41.1 - Generalized anxiety disorder Category: Medical (5) Generalized body aches: Code(s): R52 - Pain, unspecified Category: Medical (6) GERD (gastroesophageal reflux disease): Code(s): K21.9 - Gastro-esophageal reflux disease without esophagitis Category: Medical Qualifiers: Esophagitis presence: without esophagitis Qualified Code(s): K21.9 - Gastro-esophageal reflux disease without esophagitis (7) Hypertension, essential: Code(s): I10 - Essential (primary) hypertension Category: Medical (8) Osteoarthritis involving multiple joints on both sides of body: Code(s): M15.9 - Polyosteoarthritis, unspecified Category: Medical (9) Asthma exacerbation, mild: Code(s): J45.901 - Unspecified asthma with (acute) exacerbation Category: Medical (10) Vitamin D deficiency: Code(s): E55.9 - Vitamin D deficiency, unspecified Category: Medical Plan Hematuria: - The patient reports experiencing urinary symptoms, including a sensation of pressure while urinating, for approximately two weeks. - Previous urine test in April last year was clear, but current findings show a small amount of blood present. - The patient has noticed blood in urine on and off but has not consulted a urologist. - There is no indication of an active infection in the urine. Cervical Radiculopathy: - The patient reports right-sided neck pain radiating downwards, associated with cervical radiculopathy. - History of surgery being considered but not performed due to worsening symptoms and concern about permanent damage if untreated. - Neck pain significantly impacting her quality of life and daily activities. - patient has choose Rejection of surgery in favor of conservative management due to past experience with daughter. Generalized Pain: - Pain from the neck down initially started with arthritis. - Pain is described as worsening without any specified alleviating factors. . Anxiety Disorder: - Patient has a past history of anxiety disorder with medication taken a long time ago. - Currently experiencing a recurrence of anxiety, although not opting for medication. Human Immunodeficiency Virus (HIV) Infection: - HIV is stable without any current issues. - Patient sees an infectious disease specialist regularly. 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 Emerita Liz, [facility] - pulmonary Dr. Paul Patient Instructions - Take the prescribed three-day antibiotic course. For possible UTI - Follow up with the urine test after completing antibiotics. - Continue current blood pressure medication, aiming to maintain levels below 140 mmHg. - Exercise regularly to increase arm strength; actively manage pain via prescribed management strategies. - Follow routine appointments with specialists as scheduled. - Perform blood tests as ordered fasting - Follow a balanced diet, maintain regular checkup schedules. Physical exam 1 year Orders: Orders Vitamin D 25-OH (D2 and D3) Today D70.9 - Neutropenia, unspecified, E55.9 - Vitamin D deficiency, unspecified, F41.1 - Generalized anxiety disorder, I10 - Essential (primary) hypertension, J45.901 - Unspecified asthma with (acute) exacerbation, K21.9 - Gastro-esophageal reflux disease without esophagitis, M15.9 - Polyosteoarthritis, unspecified, R52 - Pain, unspecified, Z00.01 - Encounter for general adult medical examination with abnormal findings, Z21 - Asymptomatic human immunodeficiency virus [HIV] infection status TSH reflex Free T4 Today D70.9 - Neutropenia, unspecified, E55.9 - Vitamin D deficiency, unspecified, F41.1 - Generalized anxiety disorder, I10 - Essential (primary) hypertension, J45.901 - Unspecified asthma with (acute) exacerbation, K21.9 - Gastro-esophageal reflux disease without esophagitis, M15.9 - Polyosteoarthritis, unspecified, R52 - Pain, unspecified, Z00.01 - Encounter for general adult medical examination with abnormal findings, Z21 - Asymptomatic human immunodeficiency virus [HIV] infection status AMB Urinalysis Automated Today Z13.9 - Encounter for screening, unspecified Complete Blood Count Auto Diff Today D70.9 - Neutropenia, unspecified, E55.9 - Vitamin D deficiency, unspecified, F41.1 - Generalized anxiety disorder, I10 - Essential (primary) hypertension, J45.901 - Unspecified asthma with (acute) exacerbation, K21.9 - Gastro-esophageal reflux disease without esophagitis, M15.9 - Polyosteoarthritis, unspecified, R52 - Pain, unspecified, Z00.01 - Encounter for general adult medical examination with abnormal findings, Z21 - Asymptomatic human immunodeficiency virus [HIV] infection status Comprehensive [place]. Panel Fast Today D70.9 - Neutropenia, unspecified, E55.9 - Vitamin D deficiency, unspecified, F41.1 - Generalized anxiety disorder, I10 - Essential (primary) hypertension, J45.901 - Unspecified asthma with (acute) exacerbation, K21.9 - Gastro-esophageal reflux disease without esophagitis, M15.9 - Polyosteoarthritis, unspecified, R52 - Pain, unspecified, Z00.01 - Encounter for general adult medical examination with abnormal findings, Z21 - Asymptomatic human immunodeficiency virus [HIV] infection status Lipid Panel Today D70.9 - Neutropenia, unspecified, E55.9 - Vitamin D deficiency, unspecified, F41.1 - Generalized anxiety disorder, I10 - Essential (primary) hypertension, J45.901 - Unspecified asthma with (acute) exacerbation, K21.9 - Gastro-esophageal reflux disease without esophagitis, M15.9 - Polyosteoarthritis, unspecified, R52 - Pain, unspecified, Z00.01 - Encounter for general adult medical examination with abnormal findings, Z21 - Asymptomatic human immunodeficiency virus [HIV] infection status Hemoglobin A1c Today D70.9 - Neutropenia, unspecified, E55.9 - Vitamin D deficiency, unspecified, F41.1 - Generalized anxiety disorder, I10 - Essential (primary) hypertension, J45.901 - Unspecified asthma with (acute) exacerbation, K21.9 - Gastro-esophageal reflux disease without esophagitis, M15.9 - Polyosteoarthritis, unspecified, R52 - Pain, unspecified, Z00.01 - Encounter for general adult medical examination with abnormal findings, Z21 - Asymptomatic human immunodeficiency virus [HIV] infection status UA CC w/rflx Micro + Cult Today R31.9 - Hematuria, unspecified Medications: New nitrofurantoin macrocrystal must administer with a meal/food 100 mg PO BID 6 caps 0RF 3 days Refilled atenolol 25 mg PO DAILY 90 tabs 3RF 90 days
--- OUTSIDE RECORDS SUMMARY | 2025-07-26 14:04 | XMS_ITS | Data Portability ---
Author Organization [facility], [facility] Address [address] [place] [address] Care Team Providers Care Digital Forensics Examiner Name Role Phone JOHN OLEARY Primary Care Provider [phone] Assessment Encounter Date Assessment Date Assessment LastModified [...] gave good relief until recent. Problems ambulating. Nluf-lab-zffowft medications are helping somewhat but not significantly. [...] noted. mild lateral ligamentous laxity. Negative Zoë s . Calf is supple and nontender. Neurovascularly intact [...] gave good relief until recent. Problems ambulating. Eyjy-oxh-dvtixof medications are helping somewhat but not significantly. [...] noted. mild lateral ligamentous laxity. Negative Zoë s . Calf is supple and nontender. Neurovascularly intact [...] and down stairs sitting standing. Problems ambulating. Imuj-ysu-olawqlu medications are helping somewhat but not significantly. [...] noted. mild lateral ligamentous laxity. Negative Zoë s . Calf is supple and nontender. Neurovascularly intact [...] but who did not see the patient. Not available 12/05/2024 13:25:56 03/20/2025 03/20/2025 I am seeing the patient today under the supervision of Dr Hernandez who was available but who did not see the patient. Not available 03/20/2025 13:23:51 Plan of Treatment Reminders Order Date Submit Date Provider Last Modified By Organization Details Last Modified Time Details Appointments None record ed. Lab None record ed. Referral None record ed. Procedures None record ed. Surgeries None record ed. Imaging XR, knee, 4 or more view - rm 314 4v left knee 024 09/05/20 24 [facility], [address], [place], [address], 4 14:13:13 Medication Orders None record ed. Patient TargetsNo targets recorded. Patient InstructionsNo instructions recorded. Reason for Referral None Reported. Results Created Date Observation Date Name Description Value Unit Range Abnormal Flag Note LastModifiedBy Organization Detail LastModifiedTime 06/08/20 24 11/03/2020 imagi ng/di agnos tic resul t No observ ation record ed. [email or web address] Not Available 05/12 23:50:15 09/05/20 24 09/05/2024 XR, knee, 4 or more view http:/ [email or web address] ?Encry pted=s hAaTro YD8dLq bEUv6g %2BXZw aYqtaq 0bqfl% 2Fg9IQ a4ajBk vP9nXo QUaueC m3YtLR FvZlgJ JJ8mAn HZtai3 1p7562 AC0Kqa XiAVaq uKiQtr MwF INTERFACE [facility] Office [address] [facility] [address], [place], [address], 09/05/2024 13:19:50 09/05/20 24 09/05/2024 XR, knee, 4 or more view http:/ [email or web address] ?Encry pted=s hAaTro YD8dLq bEUv6g %2BXZw aYqtaq 0bqfl% 2Fg9IQ a4ajBk vP9nXo QUaueC m3YtLR FvZlgJ JJ8mAn HZtai3 9s7174 AC0Kqa XiAVaq uKiQtr MwF INTERFACE [facility] Office [address] [facility] [address], [place], [address], 09/05/2024 13:19:52 Result Notes Documentation Provider Name and Address Organization Details Recorded Time Xr, Knee, 4 Or More View : [email or web address] Encrypted=nkWuLjqEQ1yCifC Uv6g%1YQSboZwqwi0tmwc%2Fg 3AAa4uaLlwK8kXvITiheWw9Ga SSOrUazXAF2zIiFLzgn32g976 2PT2LkwPkNSgmyMsOggIaR Not Available [facility] 09/05/2024 13:19: 51 Xr, Knee, 4 Or More View : [email or web address]? Encrypted=cxYgZnpUK0nSogS Uv6g%5NNNtoZfsgb5uhcy%2Fg 0FMw0avPgzB2bGhRKabeWy9Kw WTCbPbjYLV7wUzWFkfd30k896 4HG5BxkCvIMnwqGvWzuKwQ Not Available [facility] 09/05/2024 13:19: 52 Problems Name Problem SNOMED Code Status Onset Date Resolution Date Notes Provider Name and Address Organization Details Recorded Time No complaints 871582512 Active Status : 'I'; Not Available [facility] 4 09:11:53 Osteoarthr itis of knee 621514356 Active 2023 LAURA JOHNSON [facility] 4 11:57:49 Osteoarthr itis of left knee joint 5879621334271 09 Active 2024 Venancio Caldera PA-C [address], [place], [address] , [facility], [facility] 5 13:26:02 Problem Notes None recorded. Procedures Surgical History Date Name Laterality Status Provider Name and Address Organization Details Recorded Time 03/20/2025 JZKNEE INJ completed Venancio Caldera PA-C [address], [place], [address], [facility], [facility] 03/20/2025 13:23:47 12/05/2024 JZKNEE INJ completed Venancio Caldera PA-C [address], [place], [address], [facility], [facility] 12/05/2024 13:25:51 09/05/2024 JZKNEE INJ completed Venancio Caldera PA-C [address], [place], [address], [facility], [facility] 09/05/2024 13:27:12 06/05/2024 JZKNEE INJ completed Venancio Caldera PA-C [address], [place], [address], [facility], [facility] 06/05/2024 11:22:34 03/07/2024 JZKNEE INJ completed Venancio Caldera PA-C [address], [place], [address], [facility] 03/07/2024 10:27:12 Imaging Results None recorded. Procedure Notes None recorded. Medical Equipment None Reported. Allergies Allergen ID Allergen Name Allergen Category Reaction Reaction Severity Criticality Documentation Date Start Date Code Code System Note Provider Name and Address Organization Details Recorded Time 097614 codeine sulfate medicatio n Not available Not available Not available 12/12/20232013 92550 RxNorm Not Available [facility] 4 15:27:02 671754 aspirin medicatio n Not available Not available Not available 12/12/20232013 1191 RxNorm Not Available [facility] 15:27:02 Medications Name Sig Start Date Stop [...] Not Available Not Available No t Available docusate sodium 100 mg capsule TAKE 1 CAPSULE BY MOUTH AT BEDTIME active Not Available Not Available [...] propionate 50 mcg/actuati on nasal spray,suspe nsion 1 SPRAY INTRANASA LLY DAILY ADMINISTE R INTO EACH NOSTRIL active Not Available Not Available No t Available clotrimazol e 1 % topical cream APPLY TO AFFECTED AREA TWICE A DAY active Not Available Not Available No t Available metoclopram savita 10 mg tablet TAKE 1 TABLET (10 MG) ORALLY EVERY 6 HOURS FOR NAUSEA AND VOMITING active Not Available Not Available No t Available Vitamin D3 25 mcg (1,000 unit) capsule TAKE 1 CAPSULE BY MOUTH EVERY DAY FOR 90 DAYS active Not Available Not Available No t Available cyclobenzap rine 5 mg tablet TAKE 1 TABLET BY MOUTH EVERY DAY AT BEDTIME FOR MUSCLE SPASMS FOR 30 [...] Updated DateTime 12/05/2024 154.94 cm 29.9 kg/m2 62422.59 g EMILY BRINK [facility] 12/05/2024 12:56:34 Date Recorded Body height Body mass index (BMI) Body weight Provider Name and Address Organization Details Last Updated DateTime 03/07/2024 154.94 cm 29.9 kg/m2 92031.59 g LAURA JOHNSON [facility] 03/07/2024 10:23:38 Date Recorded Body height Body mass index (BMI) Body weight Provider Name and Address Organization Details Last Updated DateTime 03/20/2025 154.94 cm 29.9 kg/m2 95489.59 g [facility] 03/20/2025 13:04:12 Date Recorded Body height Body mass index (BMI) Body weight Provider Name and Address Organization Details Last Updated DateTime 06/05/2024 154.94 cm 29.9 kg/m2 66250.59 g [facility] 06/05/2024 10:24:47 Date Recorded Body height Body mass index (BMI) Body weight Provider Name and Address Organization Details Last Updated DateTime 09/05/2024 154.94 cm 29.9 kg/m2 90942.59 g [facility] 09/05/2024 13:11:34 Social History None recorded. Functional Status None recorded. Mental Status None recorded. Family History Nothing Reported. Medical History No medical history recorded. Gynecological HistoryNo gynecological history recorded. Obstetrics History GPAL:G 0 P 0 0 0 0 Past Encounters Encounter ID Performer Location Encounter Start Date Encounter Closed Date Diagnosis/Indication Diagnosis SNOMED-CT Code Diagnosis ICD10 Code Diagnosis IMO Codes Diagnosis Note [id number] Venancio Zwirko, PA-C [address] [place] [address] 03/07/2024 10:17:35 03/28/2024 12:54:46 Osteoarthritis of knee 864339181 M17.9 [id number] Venancio Caldera PA-C [address] [place] [address] 06/05/2024 10:17:38 07/02/2024 15:24:13 Osteoarthritis of knee 346227080 M17.9 [id number] Venancio Caldera PA-C [address] [place] [address] 09/05/2024 13:07:29 10/04/2024 09:55:59 Osteoarthritis of knee 132938895 M17.9 [id number] Venancio Caldera PA-C [facility] [address] [place] [address] 12/05/2024 12:46:14 12/20/2024 13:34:53 Osteoarthritis of left knee joint 2380450631 99892 M17.12 [id number] Venancio Caldera PA-C [facility] [address] [place] [address] 03/20/2025 12:38:42 03/29/2025 08:07:15 Osteoarthritis of knee 092113208 M17.9 Health Concerns Section Related Observation LastModified by Organization Detai ls LastModified Time None Recorded Concern Status LastModified by Organization Details LastModified Time None Recorded Advance Directives Directive None Recorded Payers Insurance Date Sequence Insurance Name Policy Number Policy Vilchis Covered Member ID Vilchis Member ID Guarantor Name 06/24/2025 2 [place] Rhina L Bird [id number] Rhina L Bird 03/17/2025 1 [place] [employer] Rhina L Bird [id number] Rhina Salvatore Bird OBGyn Episode No OBEpisode recorded.
--- OUTSIDE RECORDS SUMMARY | 2025-07-26 14:04 | XMS_ITS | Patient Health Record ---
Author Organization [facility] Address [address] [place] [address] Care Team Providers Care Footwear Stitcher Name Role Phone Sanket Terry MD Primary Care Provider Miguel Ángel Eden [phone] Allergies Allergen (clinical drug ingredient) Drug/Non Drug [...] MG TAKE 1 TABLET BY MOUTH EVERY DAY; Duration: 90 Please tell patient to call for an office appointment. Thanks Active Problems Problem Type SNOMED Code ICD Code Onset Dates Problem Status W/U Status Risk Notes Problem Esophageal reflux (491029266) Esophageal reflux (530.81) Active confirmed Problem Screening for malignant neoplasm of colon (725450868) Special screening for malignant neoplasms, colon (V76.51) Active confirmed Plan Of Treatment Future Test Test Name Order Date COLONOSCOPY 08/03/2011 Insurance Providers Payer Name Payer Address Payer Phone Subscriber Number Group Number Insured Name Patient Relationship to Insured Coverage Start Date Coverage End Date MEDICARE OF [place] [address] [place] [address] [id number] AMOS JESSY Self - patient is the insured MEDICAID OF [facility] [address] [place] [address] [id number] JESSY TRINIDAD Self - patient is the insured Medical (General) History Medical History History ICD Code fibromyalgia reflux Denies [place],DM,CVA,Lung disease,renal dise ase Surgical History Surgery Date(Month/Year) cholecystectomy 3 C-sections
--- OUTSIDE RECORDS SUMMARY | 2025-07-26 14:04 | XMS_ITS | Clinical Summary ---
Author Organization [facility] Address [address] [place] [address] Phone Care Team Providers Care Computator Name Role Phone Physician, Pcp Unknown Primary Care Provider Desi vailable Medications ciclopirox (LOPROX) 0.77 % gel Apply topically 2 (two) times a day. 45 g 5 07/15/20 25 clotrimazole (LOTRIMIN) 1 % cream Apply topically 2 (two) times a day. 30 g 3 5 06/27/20 25 Active Problems Problem Noted Date Diagnosed Date Acquired hallux valgus of right foot 05/28/2025 Acquired hammer toe of right foot 05/28/2025 Encounters Date Type Department Care Team Description 05/28/2025 2:30 PM EDT Office Visit Orthopedic Surgery - [address] [address] Suhail Carroll, DPRadha Acquired hallux valgus of right foot (Primary Dx); Follow-up exam; Acquired hammer toe of right foot; Dermatophytosis of nail from Last 3 [...] PM EDT Office Visit Orthopedic Surgery - [place] [address] [facility] [address] [place] [address] Suhail Carroll, DPM [address] [facility] [address] [place] [address] Scheduled Procedures Name Priority Associated Diagnoses Date/Ti me BUNIONECTOMY Acquired hallux valgus of right foot Acquired hammer toe of right foot Health Maintenance Due Date Last Done Comments Breast Cancer Screening 1960 Colorectal Cancer Screening: Colonoscopy 1960 Meningococcal ACWY Vaccine (1 - Risk 2-dose series) 1962 COVID-19 Vaccine (#1) 1965 MMR Vaccines (1 of 2 - Risk 2-dose series) 1978 Hepatitis A Vaccines (1 of 2 - Risk 2-dose series) 12/15/1979 Cervical Cancer Screening: Pap Smear 1981 Hepatitis B Vaccines (1 of 3 - Risk 3-dose series) 2020 Hepatitis C Screening 09/07/2022 Medicare Annual Wellness [...] Comments XR FOOT 3+ VIEWS BILAT Routine 05/28/2025 2:58 PM EDT Follow-up exam from Last 3 Months Results * XR [...] talus navicular joint to calcaneal cuboid joint Suhail Carroll DPM IMG XR PROCEDURES Final R esult from Last 3 Months Insurance MEDICAID - [place] MEDICARE Care Teams Computator Relationship Specialty Start Date End Date Physician, Pcp Unknown PCP - General 03/22/25
== END 2025-07-26 11:52 | disposition home or self-care (01) ==
LOC: HO.HMCC 11:18
PROVIDERS: PCP Internal Medicine; Visit Provider Internal Medicine
DX: Z00.01 Encounter for general adult medical examination with abnormal findings (principal); R31.29 Other microscopic hematuria; Z21 Asymptomatic human immunodeficiency virus [HIV] infection status; F41.1 Generalized anxiety disorder; R52 Pain, unspecified; K21.9 Gastro-esophageal reflux disease without esophagitis; I10 Essential (primary) hypertension; M15.9 Polyosteoarthritis, unspecified; J45.901 Unspecified asthma with (acute) exacerbation; E55.9 Vitamin D deficiency, unspecified

== ENCOUNTER 2025-07-26 11:17 | Outpatient (REF) | payer MEDICARE, MEDICAID, SELFPAY ==
[2025-07-26 13:22] LABS: Appearance Urine Clear; Glucose Urine UA Negative (Negative); PH 7.0 (5.0-9.0); Specific Gravity - Urine 1.020 (1.005-1.025); UMIC TRIGGER UACC YES
== END 2025-07-26 11:18 | disposition home or self-care (01) ==
LOC: HO.LNP 11:17
PROVIDERS: PCP Internal Medicine; Visit Provider Internal Medicine
DX: Z00.01 Encounter for general adult medical examination with abnormal findings (principal); Z21 Asymptomatic human immunodeficiency virus [HIV] infection status; F41.1 Generalized anxiety disorder; K21.9 Gastro-esophageal reflux disease without esophagitis; I10 Essential (primary) hypertension; M15.9 Polyosteoarthritis, unspecified; R31.29 Other microscopic hematuria; R52 Pain, unspecified; E55.9 Vitamin D deficiency, unspecified; Z79.899 Other long term (current) drug therapy
CPT/HCPCS: 81001; 81003; 99212; 99396

== ENCOUNTER 2025-08-09 09:31 | Outpatient (REF) | payer MEDICARE, MEDICAID, SELFPAY ==
--- NOTE | ~2025-08-09 | MM_ITS ---
EXAMINATION: MM SCREENING DIGITAL BREAST TOMOSYNTHESIS, BILATERAL CLINICAL INFORMATION: Screening. Asymptomatic. COMPARISON: Comparison made to multiple prior, most recent July 30, 2024, and most remote April 24, 2018. TECHNIQUE: Digital breast tomosynthesis is performed in mediolateral oblique and craniocaudal views along with computer-aided detection (CAD). Synthesized 2D images are generated from the tomosynthesis. FINDINGS: BREAST COMPOSITION: There are scattered areas of fibroglandular density. BILATERAL BREASTS: No significant masses, suspicious calcifications or other abnormalities are seen in either breast. MM/MM tomosynthesis screening BI IMPRESSION: BILATERAL BREASTS: Negative, no mammographic evidence of malignancy. Normal interval follow-up is recommended in 12 months. ASSESSMENT: BI-RADS: Category 1: Negative RECOMMENDATION: Routine annual mammography screening. FOLLOW-UP: 1 year F/U This examination should not preclude the clinical evaluation of a suspicious palpable abnormality. This patient's information was entered into a reminder system with a target due date for their next mammogram. Electronically signed by: Jose Pena MD 08/11/2025 12:51 PM [facility]
--- OUTSIDE RECORDS SUMMARY | 2025-08-09 10:34 | XMS_ITS | Data Portability ---
Author Organization [facility], [facility] Address [address] [place] [address] Care Team Providers Care Nutrition Faculty Member Name Role Phone JOHN OLEARY Primary Care Provider [phone] Assessment Encounter Date Assessment Date Assessment LastModified [...] gave good relief until recent. Problems ambulating. Cahj-nkp-djgzbib medications are helping somewhat but not significantly. [...] gave good relief until recent. Problems ambulating. Guxm-dky-pxhyiec medications are helping somewhat but not significantly. [...] and down stairs sitting standing. Problems ambulating. Gmgj-rea-qdqcwmo medications are helping somewhat but not significantly. [...] [facility], [address], [place], [address], 4 14:13:13 Medication Orders None record ed. [...] a4ajBk vP9nXo QUaueC m3YtLR FvZlgJ JJ8mAn HZtai3 4p3308 AC0Kqa XiAVaq uKiQtr MwF INTERFACE [facility] Office [address] [facility] [address], [place], [address], 09/05/2024 13:19:50 09/05/20 24 09/05/2024 XR, knee, 4 or more view http:/ [email or web address] ?Encry pted=s hAaTro YD8dLq bEUv6g %2BXZw aYqtaq 0bqfl% 2Fg9IQ a4ajBk vP9nXo QUaueC m3YtLR FvZlgJ JJ8mAn HZtai3 9r0822 AC0Kqa XiAVaq uKiQtr MwF INTERFACE [facility] Office [address] [facility] [address], [place], [address], 09/05/2024 13:19:52 Result Notes Documentation Provider Name and Address Organization Details Recorded Time Xr, Knee, 4 Or More View : [email or web address] Encrypted=qkAlWxtBO1sRghN Uv6g%8XTYtuBzwog1ukai%2Fg 4FJs5ouGbgB0aGpXWqmhFk8Fz LQRhMwgYJR4fVuAXqkg12n636 5EF4ZdwKfJZhsaFoYopGoI Not Available [facility] 09/05/2024 13:19: 51 Xr, Knee, 4 Or More View : [email or web address] Encrypted=yzRgJeeWW1fKtcO Uv6g%5JHTsvZgjhj0klpf%2Fg 5JOr3spVviV0fQbKOigaAc8Hk ZVRvRwzHKB8wAcBKljs63s554 7UP6VxeTwQDezxOnMfnUnI Not Available On license of [facility] 09/05/2024 13:19: 52 Problems Name Problem SNOMED Code Status Onset Date Resolution Date Notes Provider Name and Address Organization Details Recorded Time No complaints 663902667 Active Status : 'I'; Not Available On [facility] of [facility] 4 09:11:53 Osteoarthr itis of knee 075190660 Active 2023 LAURA JOHNSON [facility] 4 11:57:49 Osteoarthr itis of left knee joint 1862265257493 09 Active 2024 Venancio Caldera PA-C [address], [place], [address] , [facility] 5 13:26:02 Problem Notes None recorded. Procedures Surgical History Date Name Laterality Status Provider Name and Address Organization Details Recorded Time 03/20/2025 JZKNEE INJ completed Venancio Caldera PA-C [address], [place], [address], [facility] 03/20/2025 13:23:47 12/05/2024 JZKNEE INJ completed Venancio Caldera PA-C [address], [place], [address], [facility] 12/05/2024 13:25:51 09/05/2024 JZKNEE INJ completed Venancio Caldera PA-C [address], [place], [address], [facility] 09/05/2024 13:27:12 06/05/2024 JZKNEE INJ completed Venancio Caldera PA-C [address], [place], [address], [facility] 06/05/2024 11:22:34 03/07/2024 JZKNEE INJ completed Venancio Caldera PA-C [address], [place], [address], [facility] 03/07/2024 10:27:12 Imaging Results None recorded. Procedure Notes None recorded. Medical Equipment None Reported. Allergies Allergen ID Allergen Name Allergen Category Reaction Reaction Severity Criticality Documentation Date Start Date Code Code System Note Provider Name and Address Organization Details Recorded Time 137407 codeine sulfate medicatio n Not available Not available Not available 12/12/20232013 57999 RxNorm Not Available On license of [facility] 4 15:27:02 832124 aspirin medicatio n Not available Not available Not available 12/12/20232013 1191 RxNorm Not Available On license of [facility] 15:27:02 Medications Name Sig Start Date Stop [...] Updated DateTime 12/05/2024 154.94 cm 29.9 kg/m2 41372.59 g EMILY BRINK [facility] 12/05/2024 12:56:34 Date Recorded Body height Body mass index (BMI) Body weight Provider Name and Address Organization Details Last Updated DateTime 03/07/2024 154.94 cm 29.9 kg/m2 63673.59 g LAURA JOHNSON [facility] 03/07/2024 10:23:38 Date Recorded Body height Body mass index (BMI) Body weight Provider Name and Address Organization Details Last Updated DateTime 03/20/2025 154.94 cm 29.9 kg/m2 43275.59 g [facility] 03/20/2025 13:04:12 Date Recorded Body height Body mass index (BMI) Body weight Provider Name and Address Organization Details Last Updated DateTime 06/05/2024 154.94 cm 29.9 kg/m2 [address] [facility] 06/05/2024 10:24:47 Date Recorded Body height Body mass index (BMI) Body weight Provider Name and Address Organization Details Last Updated DateTime 09/05/2024 154.94 cm 29.9 kg/m2 [address] [facility] 09/05/2024 13:11:34 Social History None recorded. Functional Status None recorded. Mental Status None recorded. Family History Nothing Reported. Medical History No medical history recorded. Gynecological HistoryNo gynecological history recorded. Obstetrics History GPAL:G 0 P 0 0 0 0 Past Encounters Encounter ID Performer Location Encounter Start Date Encounter Closed Date Diagnosis/Indication Diagnosis SNOMED-CT Code Diagnosis ICD10 Code Diagnosis IMO Codes Diagnosis Note [id number] Venancio Zwirko, PA-C [facility] [address] [place] [address] 03/07/2024 10:17:35 03/28/2024 12:54:46 Osteoarthritis of knee 822927407 M17.9 [id number] Venancio Caldera PA-C [facility] [address] [place] [address] 06/05/2024 10:17:38 07/02/2024 15:24:13 Osteoarthritis of knee 790753683 M17.9 [id number] Venancio Caldera PA-C [facility] [address] [place] [address] 09/05/2024 13:07:29 10/04/2024 09:55:59 Osteoarthritis of knee 009048616 M17.9 [id number] Venancio Caldera PA-C [facility] [address] [place] [address] 12/05/2024 12:46:14 12/20/2024 13:34:53 Osteoarthritis of left knee joint 5303400446 99639 M17.12 [id number] Venancio Caldera PA-C [facility] [address] [place] [address] 03/20/2025 12:38:42 03/29/2025 08:07:15 Osteoarthritis of knee 243811313 M17.9 Health Concerns Section Related Observation LastModified by Organization Detai ls LastModified Time None Recorded Concern Status LastModified by Organization Details LastModified Time None Recorded Advance Directives Directive None Recorded Payers Insurance Date Sequence Insurance Name Policy Number Policy Vilchis Covered Member ID Vilchis Member ID Guarantor Name 06/24/2025 2 [place] Rhina L Bird [id number] Rhina L Bird 03/17/2025 1 [place] [employer] Rhina L Bird [id number] Rhina Salvatore Bird OBGyn Episode No OBEpisode recorded.
--- OUTSIDE RECORDS SUMMARY | 2025-08-09 10:34 | XMS_ITS | Patient Health Record ---
Author Organization [facility] Address [address] [place] [address] Care Team Providers Care Legal Services Professional Name Role Phone Sanket Terry MD Primary Care Provider Miguel Ángel Eden [phone] Allergies Allergen (clinical drug ingredient) Drug/Non Drug [...] W/U Status Risk Notes Problem Esophageal reflux (732989070) Esophageal reflux (530.81) Active confirmed Problem Screening for malignant neoplasm of colon (508446920) Special screening for malignant neoplasms, colon (V76.51) Active confirmed Plan Of Treatment Future Test Test Name Order Date COLONOSCOPY 08/03/2011 Insurance Providers Payer Name Payer Address Payer Phone Subscriber Number Group Number Insured Name Patient Relationship to Insured Coverage Start Date Coverage End Date MEDICARE OF [place] [address] [place] [address] [phone] [id number] AMOSLIZBETA Self - patient is the insured MEDICAID OF [facility] [address] [place] [address] [id number] TRINIDADJESSY BRUCE Self - patient is the insured Medical (General) History Medical History History ICD Code fibromyalgia reflux Denies [place],DM,CVA,Lung disease,renal dise ase Surgical History Surgery Date(Month/Year) cholecystectomy 3 C-sections
== END 2025-08-09 09:32 | disposition home or self-care (01) ==
LOC: HO.MAMMO 09:31
PROVIDERS: PCP Internal Medicine; Visit Provider Internal Medicine
DX: Z12.31 Encounter for screening mammogram for malignant neoplasm of breast (principal)
CPT/HCPCS: 77063; 77067

== ENCOUNTER → 2025-08-09 09:45 | Outpatient (BNV) | payer MEDICARE, MEDICAID, SELFPAY | PROVIDERS: PCP Internal Medicine; Visit Provider Radiology Body Imaging | DX: Z12.31 Encounter for screening mammogram for malignant neoplasm of breast (principal) | CPT/HCPCS: 77063; 77067 ==

== ENCOUNTER 2025-08-26 08:43 | Outpatient (REF) | payer MEDICARE, MEDICAID, SELFPAY ==
[2025-08-26 10:13] LABS: Appearance Urine Clear; Glucose Urine UA Negative (Negative); PH 5.5 (5.0-9.0); Specific Gravity - Urine 1.020 (1.005-1.025); UMIC TRIGGER UACC YES
[2025-08-26 10:15] LABS: MANUAL DIFF FLAG NO
[2025-08-26 10:32] LABS: Hematocrit 40.9 % (37.0-47.0); Hemoglobin 13.0 g/dl (12.0-16.0); Imm Gran Abs Auto 0.00 X10*3/uL (0.00-0.03); Imm Gran Pct Auto 0.0 % (0.0-0.4); Lymphocytes Absolute Auto 0.9 X10*3/uL (1.2-4.9); Mean Corpuscular HGB Conc 31.8 g/dl (31.0-35.0); Mean Corpuscular Hemoglobin 29.0 pg (27.0-33.0); Mean Corpuscular Volume 91.3 fL (80.0-98.0); NRBC Abs Auto 0.000 X10*3/uL (0.0-0.012); NRBC Pct Auto 0.0 /100WBC (0.0-0.2); Platelet Count 257 X10*3/uL (160-400); Red Blood Count 4.48 X10*6/uL (4.20-5.50); White Blood Count 3.0 X10*3/uL (4.8-10.8)
[2025-08-26 10:58] LABS: Alanine Aminotransferase 21 U/L (0-31); Albumin Level 4.5 g/dL (3.5-5.0); Alkaline Phosphatase 80 U/L (39-117); Anion Gap 13 (12-20); Aspartate Amino Transferase 29 U/L (5-31); Blood Urea Nitrogen 23 mg/dL (9-16); Calcium 9.4 mg/dL (8.4-10.2); Carbon Dioxide 27 mmol/L (22-29); Chloride 105 mmol/L (96-108); Cholesterol 155 mg/dL (<200); Estimated Glomerular Filt Rate > 60; HDL Cholesterol 45 mg/dL (>40); Potassium 4.5 mmol/L (3.3-5.1); Sodium 140 mmol/L (135-145); Total Protein 7.4 g/dL (6.5-8.0); Triglycerides 99 mg/dL (<150)
[2025-08-29 18:33] LABS: Vitamin D 25-OH, D2 <4 ng/mL; Vitamin D 25-OH, D3 43 ng/mL; Vitamin D 25-OH, Total 43 ng/mL (30-100)
== END 2025-08-26 08:44 | disposition home or self-care (01) ==
LOC: HO.HMGCLDS 08:43
PROVIDERS: PCP Internal Medicine; Visit Provider Internal Medicine
DX: Z00.00 Encounter for general adult medical examination without abnormal findings (principal); I10 Essential (primary) hypertension; F41.1 Generalized anxiety disorder; K21.9 Gastro-esophageal reflux disease without esophagitis; M15.9 Polyosteoarthritis, unspecified; J45.901 Unspecified asthma with (acute) exacerbation; E55.9 Vitamin D deficiency, unspecified; D70.9 Neutropenia, unspecified; R52 Pain, unspecified; Z21 Asymptomatic human immunodeficiency virus [HIV] infection status; Z13.1 Encounter for screening for diabetes mellitus
CPT/HCPCS: 36415; 80053; 80061; 81001; 82306; 83036; 84443; 85025

== ENCOUNTER 2025-09-09 13:21 | Outpatient (AMB) | payer MEDICARE, MEDICAID, SELFPAY ==
[2025-09-09 13:25] VITALS: BP 116/62; BMI 31.2
--- NOTE | 2025-09-09 13:25 | A.OFFVIS_ITS ---
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 annual exam/DO NOT RS Rice Dryer Mechanic Required: Yes Rice Dryer Mechanic Language: Tubular Splitting Machine Tender Services: Rice Dryer Mechanic Present (in person) Rice Dryer Mechanic Name: Sandra MENDOSA Information Interpreted: non-clinical & clinical Sign Language Translator: Sign Language Translator Present (Sandra MENDOSA) Accompanied by: Self / Same As Patient Allergies aspirin (ASPIRIN) Allergy (Intermediate, Verified 09/09/25 13:29) HIVES, stomach upset codeine (CODEINE) Allergy (Intermediate, Verified 09/09/25 13:29) NAUSEA & VOMITING, drowsy, upset stomach ondansetron (Zofran) Allergy (Intermediate, Verified 09/09/25 13:29) headache Iodinated Contrast Media (IV Contrast Dye) Allergy (Verified 09/09/25 13:29) Unknown Post menopausal: Yes HPI Comments Details: Presenting for annual exam. No complaints. Last Pap/HPV was negative in 05/01 Last Mammogram was BI-RADS 1 in 08/03 Last Colonoscopy was done in 05/30, the recommendation was to repeat in 5 years [facility] Medical History Gastritis Cough Tubular adenoma Shoulder pain, right GERD (gastroesophageal reflux disease) Dysplasia of cervix, low grade (TOMA 1) Pulmonary nodules Abnormal EKG Knee pain, left Abnormal Pap smear of cervix Osteoarthritis Anxiety, generalized Chronic GERD HIV positive Surgical History History of esophagogastroduodenoscopy (EGD) History of colonoscopy History of section History of bilateral tubal ligation Family History Father CVD (cardiovascular disease) Mother Arthritis Social History Housing: House Alcohol intake: never Patient Tobacco Use Status: Former Tobacco user Tobacco use type: Cigarette e-Cigarette/Vaping Use: Never Used service: No Current occupational status: employed and disabled Cognitive needs: No Hearing needs: No Vision needs: Yes Female Reproductive History Menstrual Age of Menarche: 11 Date of last pap smear: 05/03/23 Date of Mammogram: 08/09/25 Review of Systems Const All systems reviewed & are unremarkable except as noted in HPI and below Card Reports as per HPI Resp Reports as per HPI GI Reports as per HPI and Reports no additional complaints Reports as per HPI Physical Exam Vital Signs: Last Vital Signs BP 116/62 09/09/25 13:25 BMI result Body Mass Index 31.2 Const General: cooperative, healthy appearing and comfortable Chest Chest palpation & inspection: normal inspection of the chest and normal palpation of entire chest wall Breast/axilla inspection: normal inspection of the breasts and normal inspection of the axillae Breast/axilla palpation: normal palpation of the breasts, normal palpation of the axillae and no axillary lymphadenopathy Resp Effort & Inspection: normal respiratory effort Auscultation: clear to auscultation bilaterally Percussion: percussion normal Cardio Palpation: normal PMI Rate: regular rate Rhythm: regular rhythm Heart sounds: no murmurs and no rubs Peripheral pulses: Peripheral pulses 2+ throughout GI Inspection: Yes normal to inspection Palpation (GI): Soft to palpation, nontender, no guarding, not rigid and No hepatosplenomegaly present Percussion: Yes normal to percussion Auscultation: normal bowel sounds Rectal Exam - Female: deferred General: Yes bladder normal to palpation External Female Exam: No lesion Speculum Exam - Vagina: normal appearance of the vagina, normal palpation, normal vaginal discharge and not erythematous Speculum Exam - Cervix: normal appearance of the cervix and normal palpation Bimanual exam- vagina & uterus: normal bimanual exam, normal palpation, uterine size normal, bladder normal to palpation, consistency normal and normal palpation Bimanual Exam- Adnexa, other: normal adnexae, no masses and no tenderness Assessment & Plan Assessment & Plan (1) Well woman exam: Code(s): Z01.419 - Encounter for gynecological examination (general) (routine) without abnormal findings Category: Medical Plan: Co testing not indicated this year. Counseled the patient about the recommended dietary allowance of 1200 mg of Calcium & 600 IU of vitamin D. Instructions given the patient to schedule next screening Mammogram in 08/04. The patient was instructed to perform monthly self-breast exams and schedule annual exam in a year. All questions answered and the patient verbalized understanding. Coding Level of Care Code Est Pt Prev Care 40-64y(10103) Diagnoses Well woman exam Z01.419
--- OUTSIDE RECORDS SUMMARY | 2025-09-09 16:56 | XMS_ITS | Data Portability ---
Author Organization [facility] Address [address] [place] [address] Care Team Providers Care Freelance Makeup Artist Name Role Phone JOHN OLEARY Primary Care Provider [phone] Assessment Encounter Date Assessment Date Assessment LastModified [...] gave good relief until recent. Problems ambulating. Irhd-lte-bhpdwrg medications are helping somewhat but not significantly. [...] gave good relief until recent. Problems ambulating. Rgsn-vxm-lywgbvw medications are helping somewhat but not significantly. [...] and down stairs sitting standing. Problems ambulating. Vgbv-eah-ofovtww medications are helping somewhat but not significantly. [...] [facility], [address], [address], [place], [address], 4 14:13:13 Medication Orders None record ed. [...] a4ajBk vP9nXo QUaueC m3YtLR FvZlgJ JJ8mAn HZtai3 [id number] AC0Kqa XiAVaq uKiQtr MwF INTERFACE [facility] Office [address], [place], [address], 09/05/2024 13:19:50 09/05/20 24 09/05/2024 XR, knee, 4 or more view http:/ [email or web address] ?Encry pted=s hAaTro YD8dLq bEUv6g %2BXZw aYqtaq 0bqfl% 2Fg9IQ a4ajBk vP9nXo QUaueC m3YtLR FvZlgJ JJ8mAn HZtai3 9s1771 AC0Kqa XiAVaq uKiQtr MwF INTERFACE [facility] [address], [place], [address], 09/05/2024 13:19:52 Result Notes Documentation Provider Name and Address Organization Details Recorded Time Xr, Knee, 4 Or More View : [email or web address] Encrypted=sgTiXyjFS2gTxrK Uv6g%5JFWwcAkkwa9jgzt%2Fg 8ELk8fbJrfK8gHoMNrxgVb4Ho EHGcOnfKAF3oKdVGhfw08z059 6KG1WlwPxFSfxyJvVldZsW Not Available [facility] 09/05/2024 13:19: 51 Xr, Knee, 4 Or More View : [email or web address]? Encrypted=viQmDqhGC3dOzmQ Uv6g%8YCKvePuxvj4tsby%2Fg 3NAk4ukHtbL7vFsMUbcwFd2Hj BCGaGiyDNJ4oKhQGoxi53g346 1ZW1CqfLrVHyuiVvEjqEfC Not Available [facility] 09/05/2024 13:19: 52 Problems Name Problem SNOMED Code Status Onset Date Resolution Date Notes Provider Name and Address Organization Details Recorded Time No complaints 594408195 Active Status : 'I'; Not Available [facility] 4 09:11:53 Osteoarthr itis of knee 689785073 Active 2023 LAURA JOHNSON [facility] 4 11:57:49 Osteoarthr itis of left knee joint 2068308704943 09 Active 2024 Venancio Caldera PA-C [address], [place], [address] , [facility] 5 13:26:02 Problem Notes None recorded. Procedures Surgical History Date Name Laterality Status Provider Name and Address Organization Details Recorded Time 03/20/2025 JZKNEE INJ completed Venancio Caldera PA-C [address], [place], [address], [facility] 03/20/2025 13:23:47 12/05/2024 JZKNEE INJ completed Venancio Caldera PA-C [address], [place], [address], [facility] 12/05/2024 13:25:51 09/05/2024 JZKNEE INJ completed Venancio Caldera PA-C [address], [place], [address], [facility] 09/05/2024 13:27:12 06/05/2024 JZKNEE INJ completed Venancio Caldera PA-C [address], [place], [address], [facility] 06/05/2024 11:22:34 03/07/2024 JZKNEE INJ completed Venancio Caldera PA-C [address], [place], [address], [facility] 03/07/2024 10:27:12 Imaging Results None recorded. Procedure Notes None recorded. Medical Equipment None Reported. Allergies Allergen ID Allergen Name Allergen Category Reaction Reaction Severity Criticality Documentation Date Start Date Code Code System Note Provider Name and Address Organization Details Recorded Time 488145 codeine sulfate medicatio n Not available Not available Not available 12/12/20232013 47332 RxNorm Not Available [facility] 4 15:27:02 615192 aspirin medicatio n Not available Not available Not available 12/12/20232013 1191 RxNorm Not Available [facility] 15:27:02 Medications Name Sig Start Date Stop [...] Updated DateTime 12/05/2024 154.94 cm 29.9 kg/m2 77991.59 g EMILY BRINK [facility] 12/05/2024 12:56:34 Date Recorded Body height Body mass index (BMI) Body weight Provider Name and Address Organization Details Last Updated DateTime 03/07/2024 154.94 cm 29.9 kg/m2 14654.59 g LAURA JOHNSON [facility] 03/07/2024 10:23:38 Date Recorded Body height Body mass index (BMI) Body weight Provider Name and Address Organization Details Last Updated DateTime 03/20/2025 154.94 cm 29.9 kg/m2 06032.59 g [facility] 03/20/2025 13:04:12 Date Recorded Body height Body mass index (BMI) Body weight Provider Name and Address Organization Details Last Updated DateTime 06/05/2024 154.94 cm 29.9 kg/m2 19704.[address] [facility] 06/05/2024 10:24:47 Date Recorded Body height Body mass index (BMI) Body weight Provider Name and Address Organization Details Last Updated DateTime 09/05/2024 154.94 cm 29.9 kg/m2 43245.[address] [facility] 09/05/2024 13:11:34 Social History None recorded. Functional Status None recorded. Mental Status None recorded. Family History Nothing Reported. Medical History No medical history recorded. Gynecological HistoryNo gynecological history recorded. Obstetrics History GPAL:G 0 P 0 0 0 0 Past Encounters Encounter ID Performer Location Encounter Start Date Encounter Closed Date Diagnosis/Indication Diagnosis SNOMED-CT Code Diagnosis ICD10 Code Diagnosis IMO Codes Diagnosis Note [id number] Venancio Zwirko, PA-C [facility] [address] [place] [address] 03/07/2024 10:17:35 03/28/2024 12:54:46 Osteoarthritis of knee 264700180 M17.9 [id number] Venancio Caldera PA-C [facility] [address] [place] [address] 06/05/2024 10:17:38 07/02/2024 15:24:13 Osteoarthritis of knee 513904590 M17.9 [id number] Venancio Caldera PA-C [facility] [address] [place] [address] 09/05/2024 13:07:29 10/04/2024 09:55:59 Osteoarthritis of knee 329744251 M17.9 [id number] Venancio Caldera PA-C [facility] [address] [place] [address] 12/05/2024 12:46:14 12/20/2024 13:34:53 Osteoarthritis of left knee joint 2968078737 25937 M17.12 [id number] Venancio Caldera PA-C [facility] [address] [place] [address] 03/20/2025 12:38:42 03/29/2025 08:07:15 Osteoarthritis of knee 199661180 M17.9 Health Concerns Section Related Observation LastModified by Organization Detai ls LastModified Time None Recorded Concern Status LastModified by Organization Details LastModified Time None Recorded Advance Directives Directive None Recorded Payers Insurance Date Sequence Insurance Name Policy Number Policy Vilchis Covered Member ID Vilchis Member ID Guarantor Name 06/24/2025 2 [place] Rhina L Bird [id number] Rhina L Bird 03/17/2025 1 [place] [employer] Rhina L Bird [id number] Rhina Salvatore Bird OBGyn Episode No OBEpisode recorded.
--- OUTSIDE RECORDS SUMMARY | 2025-09-09 16:56 | XMS_ITS | Clinical Summary ---
Author Organization [facility] Address [address] [place] [address] Phone Care Team Providers Care Bundle Shaker Name Role Phone Vicky Pearl MD Primary Care Provider [phone] Allergies No known active allergies Medications albuterol HFA (PROAIR HFA ; PROVENTIL HFA ; VENTOLIN HFA) 90 mcg/actuation inhaler INHALE 1 PUFF BY MOUTH 4 TIMES A DAY NEEDED FOR SHORTNESS OF BREATH OR WHEEZING Active atenoloL (TENORMIN) 25 mg tablet 25 MG ORALLY DAILY FOR 90 DAYS Active benzonatate (TESSALON) 200 mg capsule take 1 capsule by mouth three times a day as needed for cough 10/25/19 25 Active bictegravir-emtric itabine-tenofovir alafenamide (Biktarvy) 50-200-25 mg per tablet Take 1 tablet by mouth 1 (one) time each day. Active cholecalciferol (VITAMIN D-3) 25 mcg (1,000 unit) capsule Take 1 capsule (1,000 Units total) by mouth 1 (one) time each day. for 90 days Active ciprofloxacin (CIPRO) 250 mg tablet Take 1 tablet (250 mg total) by mouth 2 (two) times a day. for 3 days 08/02/20 25 Active clotrimazole (LOTRIMIN) 1 % cream Apply 1 Application topically 2 (two) times a day. APPLY TO AFFECTED AREA Active cyclobenzaprine (FLEXERIL) 5 mg tablet TAKE 1 TABLET BY MOUTH EVERY DAY AT BEDTIME FOR MUSCLE SPASMS FOR 30 DAYS Active diphenhydrAMINE (Banophen) 25 mg capsule Take 2 capsules (50 mg total) by mouth. 08/25/20 17 Active docusate sodium (COLACE) 100 mg capsule Take 1 capsule (100 mg total) by mouth. at bedtime Active esomeprazole (NexIUM) [address] capsule Take 1 capsule (40 mg total) by mouth 1 (one) time each day. Active fluticasone propionate (FLONASE) 50 mcg/actuation nasal spray 1 SPRAY INTRANASALLY DAILY ADMINISTER INTO EACH NOSTRIL Active gabapentin (NEURONTIN) 100 mg capsule TAKE 2 CAPSULES BY MOUTH TWICE A DAY FOR NEUROPATHIC PAIN Active hydrOXYzine HCL (ATARAX) 10 mg tablet Take 1 tablet (10 mg total) by mouth at bedtime. Active methylPREDNISolone (MEDROL DOSPAK) 4 mg tablet TAKE 6 TABLETS ON DAY 1 DIRECTED ON PACKAGE AND DECREASE BY 1 TAB EACH DAY FOR A TOTAL OF 6 DAYS 10/19/19 25 Active metoclopramide (REGLAN) 10 mg tablet TAKE 1 TABLET (10 MG) ORALLY EVERY 6 HOURS FOR NAUSEA AND VOMITING Active ondansetron ODT (ZOFRAN-ODT) 4 mg disintegrating tablet Take 1 tablet (4 mg total) by mouth every 8 (eight) hours if needed. Active pantoprazole (PROTONIX) 40 mg EC tablet Take 1 tablet (40 mg total) by mouth. 07/24/20 15 Active triamcinolone (KENALOG) 0.1 % ointment APPLY TO AFFECTED AREA ON BUTTOCKS TWICE DAILY FOR TWO WEEKS, BREAK ONE WEEK, REPEAT NEEDED Active valACYclovir (VALTREX) 1 gram tablet Take 1 tablet (1,000 mg total) by mouth 1 (one) time each day. Active cephalexin (KEFLEX) 500 mg capsule Take 1 capsule (500 mg total) by mouth 3 (three) times a day for 10 days. 30 each 08/07/20 25 025 Active Problems Problem Noted Date Diagnosed Date Acquired hallux valgus of right foot 05/28/2025 Acquired hammer toe of right foot 05/28/2025 Encounters Date Type Department Care Team Description 08/19/2025 2:15 PM EST Office Visit Orthopedic Surgery - [address] [address] Suhail Carroll, DPM Ingrowing nail (Primary Dx); Acquired hallux valgus of right foot; Acquired hallux valgus of left foot; Acquired hammer toe of right foot; Dermatophytosis of nail 08/07/2025 2:15 PM EDT Office Visit Orthopedic Surgery [place] [phone] [phone] Suhail Carroll DPM Acquired hallux valgus of right foot (Primary Dx); Ingrowing nail; Acquired hammer toe of right foot from Last 3 Months Social History Tobacco [...] Care Team (Late st Contact Info) Description 11/06/2025 2:30 PM EST Office Visit Orthopedic Surgery [place] [address] [address] Suhail Carroll DPM [address] [phone] Scheduled Procedures Name Priority Associated Diagnoses Date/Ti [...] on patient's age to complete this topic Insurance MEDICAID - [place] MEDICARE Care Teams Bundle Shaker Relationship Specialty Start Date End Date Vicky Pearl MD [address] [place] [address] PCP - General Internal Medicine 08/19/25
== END 2025-09-09 14:20 | disposition home or self-care (01) ==
LOC: HO.HWS 13:22
PROVIDERS: PCP Internal Medicine; Visit Provider Obstetrics & Gynecology
DX: Z01.419 Encounter for gynecological examination (general) (routine) without abnormal findings (principal)
CPT/HCPCS: G0101

== ENCOUNTER → 2025-09-09 13:21 | Outpatient (BNVA) | payer MEDICARE, MEDICAID, SELFPAY | PROVIDERS: PCP Internal Medicine; Visit Provider Obstetrics & Gynecology | DX: Z01.419 Encounter for gynecological examination (general) (routine) without abnormal findings (principal) | CPT/HCPCS: 99386; G0101 ==